=== PATIENT | male | born 1950 | race Caucasian/White ===

== ENCOUNTER 2019-12-16 08:28 | Outpatient (CLI) | payer MEDICARE, OTHER, SELFPAY | END 2019-12-16 08:29 | disposition home or self-care (01) | PROVIDERS: PCP Internal Medicine; Visit Provider Internal Medicine Pulmonary Disease | DX: J45.909 Unspecified asthma, uncomplicated (principal); J45.991 Cough variant asthma | CPT/HCPCS: 94060; 94726; 94729; 95012 ==

== ENCOUNTER 2020-01-08 12:44 | Outpatient (CLI) | payer MEDICARE, OTHER, SELFPAY ==
--- NOTE | ~2020-01-08 | XR_ITS ---
EXAMINATION: XR hand RT min 3V EXAM DATE: 01/08/2020 13:18 INDICATION: No known recent injury provided at this time. Pain of the right hand, second MCP joint. TECHNIQUE: Right hand frontal, lateral and oblique projections obtained and reviewed. There is no pr ior study for comparison. FINDINGS: There is moderate arthritis at the second MCP joint with juxta-articular and periarticular well-defined erosion. No other erosions identified. Otherwise mild to moderate polyarticular osteoart hritis. Carpal bones are unremarkable. There are no acute fractures or dislocations identified. Ther e is no subcutaneous gas. The soft tissue is unremarkable. There are no radiopaque foreign bodies. IMPRESSION: Moderate right second MCP arthritis, probably osteoarthritis but given the juxta-articula r erosion, gout should also be considered. Reviewed, dictated and finalized at location B. POINTER IMPRESSION: Moderate right second MCP arthritis, probably osteoarthritis but gi beth the juxta-articular erosion, gout should also be considered.
== END 2020-01-08 12:45 | disposition home or self-care (01) ==
LOC: CHSIMG 12:46
PROVIDERS: PCP Internal Medicine; Visit Provider Internal Medicine
DX: M79.641 Pain in right hand (principal)
CPT/HCPCS: 73130

== ENCOUNTER 2020-03-29 07:28 | Outpatient (CLI) | payer MEDICARE, SELFPAY ==
[2020-03-29 08:16] LABS: Creatinine Urine 170.32 mg/dL (40-278)
[2020-03-29 08:19] LABS: Hemoglobin A1C 7.8 % (<5.7)
[2020-03-29 08:23] LABS: MALB Creatinine Ratio 11.6 mg/g (0-30); Microalbumin Urine Random 19.9 mg/L
[2020-03-29 09:05] LABS: Rheumatoid Factor Screen Negative (Negative)
[2020-03-29 09:30] LABS: Alanine Aminotransferase 45 U/L (16-63); Albumin Level 3.6 g/dL (3.4-5.0); Alkaline Phosphatase 75 U/L (46-116); Anion Gap 14.4 mmol/L (7-16); Aspartate Amino Transferase 29 U/L (15-37); Bilirubin,Total 0.5 mg/dL (0.00-1.00); Blood Urea Nitrogen 24 mg/dL (7-18); Carbon Dioxide 30 mmol/L (21-32); Chloride 104 mmol/L (98-108); Cholesterol 169 mg/dL (0-200); Estimated Glomerular Filt Rate > 60; Free T3 2.75 pg/mL (2.18-3.98); Free T4 Free Thyroxine 1.22 ng/dL (0.76-1.46); Glucose 98 mg/dL (70-99); HDL Direct 33 mg/dL (40-60); LDL Cholesterol Calculated 118 mg/dL (<130); Osmolality Calculated 302 mOsm/kg (285-295); Potassium 4.4 mmol/L (3.5-5.1); Sodium 144 mmol/L (136-145); Total Protein 7.2 g/dL (6.4-8.2); Triglycerides 91 mg/dL (0-150); Vitamin B12 1283 pg/mL (193-986)
[2020-03-29 09:31] LABS: Folic Acid > 20.0 ng/mL (8.6->20)
[2020-04-01 02:22] LABS: Thyroid Peroxidase Antibodies <1 IU/mL (<9)
== END 2020-03-29 07:29 | disposition home or self-care (01) ==
PROVIDERS: PCP Internal Medicine; Visit Provider Internal Medicine Endocrinology, Diabetes & Metabolism
DX: R53.83 Other fatigue (principal); E10.9 Type 1 diabetes mellitus without complications; E78.5 Hyperlipidemia, unspecified
CPT/HCPCS: 36415; 80053; 80061; 82043; 82607; 82746; 83036; 84439; 84443; 84481; 86038; 86376; 86430

== ENCOUNTER 2020-04-15 15:43 | Outpatient (CLI) | payer MEDICARE, OTHER, SELFPAY ==
--- NOTE | 2020-04-15 16:00 | ECG_ITS ---
Measurements Intervals [place] Rate: 81 P: 62 SD: 218 QRS: 49 QRSD: 114 T: -11 QT: 374 QTc: 436 Interpretive Statements SINUS RHYTHM WITH FIRST DEGREE AV BLOCK INTRAVENTRICULAR CONDUCTION DELAY CANNOT RULE OUT SEPTAL INFARCT, AGE INDETERMINATE BORDERLINE ST-T WAVE ABNORMALITY- INFERIOR LEADS ABNORMAL ECG Electronically Signed On 04-15-2020 16:43:59 CDT by Luke Nick D.O.
== END 2020-04-15 15:44 | disposition home or self-care (01) ==
LOC: CHSCARD 15:48
PROVIDERS: PCP Internal Medicine; Visit Provider Internal Medicine Cardiovascular Disease
DX: I48.0 Paroxysmal atrial fibrillation (principal); I10 Essential (primary) hypertension; E78.5 Hyperlipidemia, unspecified
CPT/HCPCS: 93005

== ENCOUNTER 2020-05-04 09:03 | Outpatient (CLI) | payer MEDICARE, OTHER, SELFPAY ==
--- NOTE | 2020-05-04 11:00 | NEURO_ITS ---
Patient Number: [id number] Impression: # Complains of decreased strength of left hand grasp. # Severe left Carpal Tunnel Syndrome with atrophy of APB; No response could be obtained. # Left ulnar neuropathy at the elbow. # Needle/EMG exam not requested. # Clinical correlation recommended. Nerve Conduction Studies Anti Sensory Summary Table Stim Site NR Peak (ms) P-T Amp (?V) Site1 Site2 Delta-P (ms) Dist (cm) Keshav (m/s) Left Median Anti Sensory (2-3nd Digit) NO RESPONSE Wrist NR Wrist 2-3nd Digit 14.0 Wrist NR Wrist 2-3nd Digit 14.0 Left Radial Anti Sensory (Base 1st Digit) Wrist 2.7 15.0 Wrist Base 1st Digit 2.7 0.0 Left Ulnar Anti Sensory (5th Digit) Wrist 2.3 19.7 Wrist 5th Digit 2.3 14.0 61 Motor Summary Table Stim Site NR Onset (ms) O-P Amp (mV) Site1 Site2 Delta-0 (ms) Dist (cm) Keshav (m/s) Left Median Motor (Abd Poll Brev) NO RESPONSE Wrist NR Elbow Wrist 26.0 Elbow NR Left Ulnar Motor (Abd Dig Minimi) Wrist 3.4 3.9 A Elbow Wrist 8.3 34.0 41 A Elbow 11.7 3.0 B Elbow Wrist 5.8 28.0 48 B Elbow 9.2 3.3 F Wave Studies NR F-Lat (ms) L-R F-Lat (ms) Left Median (Mrkrs) (Abd Poll Brev) NO RESPONSE NR Left Ulnar (Mrkrs) (Abd Dig Min) 26.97 MTDD
== END 2020-05-04 09:04 | disposition home or self-care (01) ==
PROVIDERS: PCP Internal Medicine; Visit Provider Family Medicine
DX: G56.02 Carpal tunnel syndrome, left upper limb (principal); G56.22 Lesion of ulnar nerve, left upper limb
CPT/HCPCS: 95909

== ENCOUNTER 2020-06-21 13:38 | Outpatient (CLI) | payer MEDICARE, SELFPAY ==
[2020-06-21 14:28] LABS: Anion Gap 9 mmol/L (8-16); Blood Urea Nitrogen 28 mg/dL (7-18); Calcium 8.7 mg/dL (8.5-10.1); Carbon Dioxide 27 mmol/L (21-32); Chloride 103 mmol/L (98-108); Estimated Glomerular Filt Rate 59; Glucose 233 mg/dL (70-99); Osmolality Calculated 300 mOsm/kg (285-295); Potassium 4.5 mmol/L (3.5-5.1); Sodium 139 mmol/L (136-145)
== END 2020-06-21 13:39 | disposition home or self-care (01) ==
LOC: CHSLAB 13:41
PROVIDERS: PCP Internal Medicine; Visit Provider Anesthesiology
DX: E11.9 Type 2 diabetes mellitus without complications (principal)
CPT/HCPCS: 36415; 80048

== ENCOUNTER 2020-06-22 00:32 | Outpatient (CLI) | payer MEDICARE, SELFPAY ==
[2020-06-22 18:35] LABS: SARS-CoV-2 RNA PCR Negative
== END 2020-06-22 00:33 | disposition home or self-care (01) ==
LOC: ANHCOVIDDT 00:33
PROVIDERS: PCP Internal Medicine; Visit Provider Orthopaedic Surgery
DX: Z01.812 Encounter for preprocedural laboratory examination (principal); Z11.59 Encounter for screening for other viral diseases
CPT/HCPCS: 87635; C9803; U0003

== ENCOUNTER 2020-06-24 01:04 | Day surgery (SDC) | payer MEDICARE, SELFPAY ==
[2020-06-15 12:43] VITALS: BMI 29.5
[2020-06-24] MEDS: LACTATED RINGERS 1,000 ML 30 ML IV CONT (07:00)
[2020-06-24] MEDS: KETOROLAC 15 MG/ML VIAL (*BKC) IV PUSH (07:05)
[2020-06-24] MEDS: ACETAMINOPHEN 500 MG TABLET 1000 MG PO (07:05)
--- NOTE | 2020-06-24 07:15 | PM.IMHP ---
H&P: HPI History of Present Illness Date/Time: 06/24/20 07:15 Chief complaint: Left Carpal Tunnel Syndrome Narrative: Dinesh Lin is a 70 year old maleWith left hand pain and numbness. Nerve conduction study shows carpal tunnel syndrome. Patient has failed conservative treatment with bracing, activity modification and cortisone injections. Presents for operative treatment. Review of Systems Constitutional: Constitutional: Denies fever(s) Eyes: Eyes: Denies blurry vision ENT: Reports Normal hearing present Cardiovascular: Cardiovascular: Denies chest pain and Denies dyspnea Respiratory: Respiratory: Denies dyspnea and Denies wheezing Gastrointestinal: Gastrointestinal: Denies abdominal pain Genitourinary: Genitourinary: Denies urinary urgency Musculoskeletal: Musculoskeletal: Reports as per HPI Integumentary/Breasts: Skin/Breast: Denies changing lesions and Denies sores Neurologic: Denies confusion Psychiatric: Psychiatric: Denies confusion Endocrine: Endocrine: Denies heat intolerance Hematologic/Lymphatic: Hematologic/Lymphatic: Denies easy bleeding Allergic/Immunologic: Allergic/Immunologic: Denies wheezing PMFSH Past Medical History Medical History Carpal tunnel syndrome of left wrist Cubital tunnel syndrome on left Family History Family History Mother Family history of diabetes mellitus in first degree relative Family history of congestive heart failure Social History Social History Smoking status: Former smoker Additional smoking assessment comments: 2PK/DAY - QUIT Alcohol intake: current Substance use: never Living arrangements: with family Spiritual care concerns: No Meds Home Medications and Allergies Home Medications Medication Instructions Recorded Confirmed Type apixaban 5 mg tablet 5 mg PO BID 11/24/19 06/15/20 History carvedilol 6.25 mg tablet 6.25 mg PO Q12H 11/24/19 06/15/20 History cholecalciferol (vitamin D3) 25 25 mcg PO DAILY 11/24/19 06/15/20 History mcg (1,000 unit) tablet coenzyme Q10 100 mg capsule 100 mg PO DAILY 11/24/19 06/15/20 History furosemide 40 mg tablet 40 mg PO QAM 11/24/19 06/15/20 History magnesium oxide 400 mg PO DAILY 11/24/19 06/15/20 History meloxicam 15 mg tablet 15 mg PO DAILY 11/24/19 06/15/20 History multivitamin with iron-mineral 1 tablet PO DAILY 11/24/19 06/15/20 History omega-3 fatty acids 1,000 mg 1,000 mg PO DAILY 11/24/19 06/15/20 History capsule pantoprazole 40 mg tablet,delayed 40 mg PO QAM 11/24/19 06/15/20 History release pyridoxine (vitamin B6) 50 mg 50 mg PO DAILY 11/24/19 06/15/20 History capsule spironolactone 25 mg tablet 25 mg PO DAILY #90 tablet 01/30/20 06/15/20 Rx Colcrys 0.6 mg tablet See Rx Instructions .ROUTE 04/22/20 06/15/20 Rx .COMPLEX #60 tablet NS amiodarone 200 mg PO HS 06/15/20 06/15/20 History duloxetine 20 mg PO BID 06/15/20 06/15/20 History insulin aspart U-100 [Novolog 1 sliding scale dose SUBCUT 06/15/20 06/15/20 History U-100 Insulin aspart] USEASDIRECTD losartan 50 mg PO HS 06/15/20 06/15/20 History Allergies Allergy/AdvReac Type Severity Reaction Status Date / Time No Known Drug Allergies Allergy Unknown Unknown Verified 06/15/20 12:12 Exam Const: General: cooperative, healthy appearing, no acute distress, well developed and alert; No confusion Orientation/consciousness: No confusion HENMT: Head: normal to inspection, normocephalic and atraumatic Eyes: Conjunctivae: conjunctivae normal Sclera: sclerae normal Neck: Neck: supple and nontender Chest: Chest palpation & inspection: normal inspection of the chest Resp: Effort & Inspection: normal respiratory effort and no audible wheezes Cardio: Rate: regular rate Rhythm: regular rhythm : General: Yes deferred Skin: Ge
--- NOTE | 2020-06-24 07:17 | WPDHPUPDATE1 ---
History and Physical Update Update Date/Time: 06/24/20 07:17 History and Physical has been reviewed, including an updated exam of the patient. There are NO changes in the patient's condition. Risks, benefits, and alternatives have been discussed and questions answered. Patient agrees to proceed with procedure.
[2020-06-24 07:30] LABS: Glucose Point of Care 114 (65-105)
--- NOTE | 2020-06-24 08:06 | WPDANESEPPF ---
Anes - Initial Pre Proc Eval Procedure: Operation Date: 06/24/20 08:30 Proposed Procedures p Left Carpal Tunnel Release - Chaitanya Jones MD Date/Time: 06/24/20 08:06 Surgeon: Chaitanya Jones MD Pre Op Diagnosis: Left Carpal Tunnel Syndrome Patient Data Age: 70 Gender: M Height: 6 ft 2 in Weight: 104.5 kg Allergies Allergy/AdvReac Type Severity Reaction Status Date / Time No Known Drug Allergies Allergy Unknown Unknown Verified 06/15/20 12:12 Home Medications Medication Instructions Recorded Confirmed Type apixaban 5 mg tablet 5 mg PO BID 11/24/19 06/15/20 History carvedilol 6.25 mg tablet 6.25 mg PO Q12H 11/24/19 06/15/20 History cholecalciferol (vitamin D3) 25 25 mcg PO DAILY 11/24/19 06/15/20 History mcg (1,000 unit) tablet coenzyme Q10 100 mg capsule 100 mg PO DAILY 11/24/19 06/15/20 History furosemide 40 mg tablet 40 mg PO QAM 11/24/19 06/15/20 History magnesium oxide 400 mg PO DAILY 11/24/19 06/15/20 History meloxicam 15 mg tablet 15 mg PO DAILY 11/24/19 06/15/20 History multivitamin with iron-mineral 1 tablet PO DAILY 11/24/19 06/15/20 History omega-3 fatty acids 1,000 mg 1,000 mg PO DAILY 11/24/19 06/15/20 History capsule pantoprazole 40 mg tablet,delayed 40 mg PO QAM 11/24/19 06/15/20 History release pyridoxine (vitamin B6) 50 mg 50 mg PO DAILY 11/24/19 06/15/20 History capsule spironolactone 25 mg tablet 25 mg PO DAILY #90 tablet 01/30/20 06/15/20 Rx Colcrys 0.6 mg tablet See Rx Instructions .ROUTE 04/22/20 06/15/20 Rx .COMPLEX #60 tablet NS amiodarone 200 mg PO HS 06/15/20 06/15/20 History duloxetine 20 mg PO BID 06/15/20 06/15/20 History insulin aspart U-100 [Novolog 1 sliding scale dose SUBCUT 06/15/20 06/15/20 History U-100 Insulin aspart] USEASDIRECTD losartan 50 mg PO HS 06/15/20 06/15/20 History Laboratory Tests 06/24/20 07:22 POC Capillary Glucose 114 mg/dl H mg/dl (65-105) Patient hx anesthesia problems: none Family hx anesthesia problems: none PMFSH Past Medical History Medical History (Updated 06/24/20 @ 08:06 by Hakan Alvarez MD) CAD (coronary artery disease), autologous vein bypass graft Carpal tunnel syndrome of left wrist COPD (chronic obstructive pulmonary disease) Cubital tunnel syndrome on left Diabetes Dyslipidemia MANNY on CPAP Family History Family History Mother Family history of diabetes mellitus in first degree relative Family history of congestive heart failure Social History Social History Smoking status: Former smoker Additional smoking assessment comments: 2PK/DAY - QUIT Alcohol intake: current Substance use: never Living arrangements: with family Spiritual care concerns: No Anes - Eval Final PreProcedure Day of Procedure 06/24/20 08:06 Patient weight: obese Heart: regular rate and rhythm Lungs: clear to auscultation Airway: Mallampati scale class II Neurological: alert and oriented Last oral intake: >/= 8 hours ASA classification: III Emergent: no Anesthetic plan: proceed Anesthesia type and monitoring: general GIVS and standard monitoring Informed Consent: The patient's anesthetic plan and its attendant risks and benefits were discussed with the patient/family/POA. Questions were solicited and answers provided to the satisfaction of the patient/family/POA.
[2020-06-24] MEDS: ceFAZolin 2 GM/D5W 50 ML 2 GM/50 ML BAG IVPB (08:17)
[2020-06-24 08:30] VITALS: BP 143/69; PULSE 85; RESP 20; TEMP 36.5; O2SAT 97
[2020-06-24] MEDS: LIDOCAINE HCL 2% LOCAL INJ 20 ML VIAL INFILTRATE (08:38)
[2020-06-24 08:50] VITALS: BP 125/58; PULSE 72; RESP 12; O2SAT 99
--- NOTE | 2020-06-24 08:55 | PM.PROC ---
Procedure Note - Detailed Date of procedure: 06/24/20 Pre-op diagnosis: Left Carpal Tunnel Syndrome Post-op diagnosis: same Procedure performed: Left carpal tunnel release Description of procedure: Preoperative Diagnosis: Left Carpal Tunnel Syndrome (G56.01) Postoperative Diagnosis: Same Procedure: Left open carpal tunnel release (80338) Surgeon: Robert Assist: Softball Core Molder Anesthesia: MAC, local Complications: None EBL: Minimal Operative Indications: The patient has history, exam findings, and electrodiagnostic findings consistent with carpal tunnel syndrome. Conservative treatment with bracing/ splinting, activity modifications, medication, ergonomics, injections has failed. Symptoms are daily and affect ability to use hand. The patient desires operative treatment. Procedure: After informed consent was given, the operative extremity was marked in the preoperative holding area. Intravenous antibiotics were given. The patient was taken to the operating room and underwent conscious sedation by the anesthesia team. A time-out was performed confirming patient, procedure, and operative site. Local infiltrate at the carpal tunnel was done with 0.5% marcaine. Prepping and draping was done using chloraprep skin solution with usual surgical sterile technique. Anatomic landmarks marked on skin. Hand was exsanguinated and arm tourniquet inflated to 225mmHg. Incision was made with #15 blade knife in skin crease on volar palm. Hemostasis was achieved with electrocautery. Careful dissection was carried down to the transverse carpal ligament. Retractors were placed. Ligament overlying median nerve was incised in line with skin incision using [place] blade. Proximal and distal release was done with metzenbaum scissors under direct visualization. Mosquito clamp was placed deep to ligament to protect nerve during release. The nerve was inspected and noted to be intact with mild flattening. Tendons had good excursion. The tourniquet was then released and pressure held. Bleeding points were coagulated with bovie cautery. The wound was thoroughly irrigated with antibiotic solution. The skin was closed with 4-0 nylon interrupted suture. A sterile dressing was applied. Good capillary refill in the fingers and thumb was noted. The patient was transported to the recovery room in stable condition. All sponge, needle, instrument counts were correct at the end of the case. Anesthesia: MAC Surgeon: Chaitanya Jones MD Physical Science Aide: 1st library serials assistant Estimated blood loss (mL): 2 Tourniquet time (min): 8 Drains: No Packing: No Pathology: none sent Complications: None Condition: stable Disposition: PACU
[2020-06-24 09:11] LABS: Glucose Point of Care 110 (65-105)
[2020-06-24 09:20] VITALS: BP 120/68; PULSE 68; RESP 16; O2SAT 97
== END 2020-06-24 09:38 | disposition home or self-care (01) ==
PROVIDERS: PCP Internal Medicine; Visit Provider Orthopaedic Surgery
PROC: (CPT 64721; principal; 2020-06-24 08:30)
DX: G56.02 Carpal tunnel syndrome, left upper limb (principal); I25.10 Atherosclerotic heart disease of native coronary artery without angina pectoris; J44.9 Chronic obstructive pulmonary disease, unspecified; E11.9 Type 2 diabetes mellitus without complications; E78.5 Hyperlipidemia, unspecified; G47.33 Obstructive sleep apnea (adult) (pediatric); Z79.4 Long term (current) use of insulin; Z79.01 Long term (current) use of anticoagulants; Z87.891 Personal history of nicotine dependence; E66.9 Obesity, unspecified; Z68.29 Body mass index [BMI] 29.0-29.9, adult
CPT/HCPCS: 64721; A9270; J0690; J1885; J2704; J3010; J7120

== ENCOUNTER 2020-07-14 08:04 | Outpatient (CLI) | payer MEDICARE, SELFPAY ==
[2020-07-14 08:31] LABS: Creatinine Urine 127.25 mg/dL (40-278); MALB Creatinine Ratio 10.2 mg/g (0-30); Microalbumin Urine Random < 13.0 mg/L
[2020-07-14 09:13] LABS: Hemoglobin A1C 7.6 % (<5.7)
[2020-07-14 09:52] LABS: Alanine Aminotransferase 68 U/L (16-63); Albumin Level 3.5 g/dL (3.4-5.0); Alkaline Phosphatase 95 U/L (46-116); Anion Gap 7 mmol/L (8-16); Aspartate Amino Transferase 34 U/L (15-37); Bilirubin,Total 0.3 mg/dL (0.00-1.00); Blood Urea Nitrogen 30 mg/dL (7-18); Calcium 8.6 mg/dL (8.5-10.1); Carbon Dioxide 28 mmol/L (21-32); Chloride 105 mmol/L (98-108); Cholesterol 162 mg/dL (0-200); Estimated Glomerular Filt Rate > 60; Glucose 108 mg/dL (70-99); HDL Direct 30 mg/dL (40-60); LDL Cholesterol Calculated 110 mg/dL (<130); Osmolality Calculated 297 mOsm/kg (285-295); Potassium 4.3 mmol/L (3.5-5.1); Sodium 140 mmol/L (136-145); Total Protein 7.5 g/dL (6.4-8.2); Triglycerides 108 mg/dL (0-150)
== END 2020-07-14 08:05 | disposition home or self-care (01) ==
LOC: CHSLAB 08:07
PROVIDERS: PCP Internal Medicine; Visit Provider Internal Medicine Endocrinology, Diabetes & Metabolism
DX: E78.5 Hyperlipidemia, unspecified (principal); E11.65 Type 2 diabetes mellitus with hyperglycemia
CPT/HCPCS: 36415; 80053; 80061; 82043; 83036

== ENCOUNTER 2020-08-30 08:05 | Outpatient (CLI) | payer MEDICARE, SELFPAY ==
--- NOTE | ~2020-08-30 | US_ITS ---
EXAMINATION: US art doppler w press LE BI DATE: 08/30/2020 09:12 INDICATION: Absent bilateral pedal pulses. TECHNIQUE: Segmental pressures and plethysmographic and Doppler waveforms of the brachial and lower e xtremity arteries were obtained. COMPARISON: None. FINDINGS: Right and left brachial artery pressures of 129 mm Hg and 124 mm Hg, respectively, are concordant (no rmal difference <= 30 mmHg). The right and left high-thigh pressure indices were unable to be obtaine d due to inability to occlude the vessels (normal > 1.2). The right ankle-brachial index (MAHIN) is 1.14 (normal >= 0.9-1). The right great toe-brachial index (T BI) is 0.50 (normal >= 0.6-0.8). The right lower extremity segmental pressure gradients are increased between the right dorsalis pedis artery and the right ejyug-brj-cqoe popliteal artery and posterior tibial artery (normal gradients <= 20-30 mmHg between adjacent levels on the same leg or the same lev els on the two legs). Arterial waveforms are biphasic with brisk systolic upstrokes at the arteries t hroughout the right lower limb. The left MAHIN is unable to be obtained due to inability to occlude either vessel at the level of the a nkle. The left TBI is 0.74. The left lower extremity segmental pressure gradient between the above an d yoqlr-aot-fwta popliteal arteries is normal. Arterial waveforms are biphasic with brisk systolic up strokes throughout the left lower limb. IMPRESSION: 1. 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 No significant arterial occlusive disease to the left lower limb with normal left TBI. Right MAHIN i s unable to be obtained due to to inability to occlude the vessels typically resulting from vessel wa ll calcification. Reviewed, dictated and finalized at location A. IMPRESSION: 1. 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 No significant arterial occlusive disease to the left lower limb with normal left TBI. Right MAHIN is unable to be obtained due to to inability to occlude th e vessels typically resulting from vessel wall calcification.
== END 2020-08-30 08:06 | disposition home or self-care (01) ==
PROVIDERS: PCP Internal Medicine; Visit Provider Orthopaedic Surgery
DX: R09.89 Other specified symptoms and signs involving the circulatory and respiratory systems (principal); I73.9 Peripheral vascular disease, unspecified
CPT/HCPCS: 93923

== ENCOUNTER 2020-10-06 09:37 | Outpatient (CLI) | payer MEDICARE, SELFPAY ==
--- NOTE | ~2020-10-06 | XR_ITS ---
XR lumbar spine min 4V 10/06/2020 10:27 Indication: Lumbar postlaminectomy Procedure: 5 views lumbar spine Comparison: 02/15/2010 Findings: There is a chronic superior endplate compression fracture of L2, unchanged. There is modera te multilevel facet hypertrophy at L3-4, L4-5 and L5-S1. There is disc narrowing at these levels. The re are laminectomy changes at L4-5. There is a cholecystectomy clips. Impression: 1: Lumbar spondylosis. 2: Chronic superior endplate compression fracture of L2, stable. Reviewed, dictated and finalized at location A. [employer] Impression: 1: Lumbar spondylosis. 2: Chronic superior endplate compression fracture of L2, stable.
--- NOTE | ~2020-10-06 | CT_ITS ---
EXAMINATION: CT lumbar spine wo con DATE: 10/06/2020 10:38 INDICATION: Low back pain. Postlaminectomy syndrome. TECHNIQUE: Computed tomography (CT) of the lumbar spine was performed without intravenous contrast. A utomated exposure control and iterative reconstruction technique were employed. The dose-length produ ct was 1337.53 mGy-cm. COMPARISON: CT lumbar spine 06/24/2015 FINDINGS: There is a 1.2 cm mass in right adrenal gland containing fat, consistent with a myelolipoma . There is 4 degrees levocurvature of thoracic lumbar spine. There is 3 mm retrolisthesis of L2 on L3 . There is a chronic burst fracture of L2 with 3/5 loss of height. There is mild chronic anterior wed ging of T11 and T12 vertebral bodies. There is moderately decreased disc height at T12-L1 and L1-L2 a nd severely decreased disc height at L2-L3 and L5-S1. There are disc calcifications at L5-S1. The fol lowing disc levels are specifically discussed: T12-L1: The disc is bulging. There is moderate bilateral facet joint osteoarthritis. There is mild bi lateral neural foraminal stenosis. There is mild central canal stenosis. L1-L2: The disc is bulging. There is mild right and moderate left facet joint osteoarthritis. There i s mild bilateral neural foraminal stenosis. There is no central canal stenosis. L2-L3: The disc is bulging. There is moderate bilateral facet joint osteoarthritis. There is moderate bilateral neural foraminal stenosis. There is mild central canal stenosis. L3-L4: The disc is bulging. There is severe bilateral facet joint osteoarthritis. There is hypertroph y of the ligamentum flavum. There is moderate bilateral neural foraminal stenosis. There is severe ce ntral canal stenosis. L4-L5: The disc is bulging. There is severe bilateral facet joint osteoarthritis. There is moderate b ilateral neural foraminal stenosis. There is mild central canal stenosis with posterior decompression . L5-S1: The disc is bulging. There is ankylosis of the facet joints with moderate right and severe lef t hypertrophy. There is moderate bilateral neural foraminal stenosis. There is no central canal steno sis. IMPRESSION: 1. Worsened severe lumbar spondylosis. Reviewed, dictated and finalized at location A. ESTATE MARKETING COORDINATOR
== END 2020-10-06 09:38 | disposition home or self-care (01) ==
PROVIDERS: PCP Internal Medicine; Visit Provider Pain Medicine Pain Medicine
DX: M47.816 Spondylosis without myelopathy or radiculopathy, lumbar region (principal)
CPT/HCPCS: 72110; 72131

== ENCOUNTER 2020-10-12 13:55 | Inpatient (IN) | payer MEDICARE, SELFPAY ==
[2020-10-12] VITALS (31 sets, daily range): BP systolic 118–157; BP diastolic 62–84; PULSE 79–97; RESP 12–20; TEMP 35.8–36.6; O2SAT 95–100; BMI 31.1
--- NOTE | ~2020-10-12 | XR_ITS ---
EXAMINATION: XR chest 1V portable EXAM DATE: 10/12/2020 14:37 INDICATION: Mid chest pain. COPD, diabetes. TECHNIQUE: Portable AP frontal chest x-ray was obtained. Comparison is made to prior examination from 10/09/2018. FINDINGS: Sternotomy wires are present without findings to suggest sternal dehiscence. The lungs are clear. There are no pleural effusions. The cardiomediastinal silhouette is within normal limits. T here is no pneumothorax suspected. The bones and soft tissues are unremarkable. IMPRESSION: No acute cardiopulmonary findings. Reviewed, dictated and finalized at location A. F PHYSICAL THERAPIST
--- NOTE | 2020-10-12 14:01 | ECG_ITS ---
Measurements Intervals [place] Rate: 94 P: 60 NV: 202 QRS: -43 QRSD: 115 T: 31 QT: 367 QTc: 460 Interpretive Statements SINUS RHYTHM LEFT AXIS DEVIATION BORDERLINE AV CONDUCTION DELAY INTRAVENTRICULAR CONDUCTION DELAY CANNOT RULE OUT SEPTAL INFARCT, AGE INDETERMINATE BASELINE WANDER- II, III, AVR, AVL, AVF, V1 ABNORMAL ECG Electronically Signed On 10-12-2020 15:52:57 ARCH CUSHION SKIVING MACHINE OPERATOR by Luke Nick D.O.
[2020-10-12 14:20] LABS: Basophils Percent Auto 0.2 % (0.2-1.2); Eosinophils Percent Auto 0.1 % (0-4.4); Hemoglobin 13.4 g/dL (14.0-18.0); Immature Granulocyte Absolute 0.05 K/mm3 (0.00-0.031); Immature Granulocyte Percent A 0.4 % (0-0.5); Lymphocytes Absolute Auto 2.12 K/mm3 (0.9-3.2); Lymphocytes Percent Auto 18.8 % (18.3-44.2); Mean Corpuscular HGB Conc 32.7 g/dl (32-36); Mean Corpuscular Hemoglobin 26.9 pg (26-34); Mean Corpuscular Volume 82.3 fl (80-100); Mean Platelet Volume 10.4 fl (7.4-10.4); Monocytes Absolute Auto 0.7 K/mm3 (0.1-0.6); Monocytes Percent Auto 5.8 % (2.6-8.5); Neutrophils Absolute Auto 8.4 K/mm3 (1.3-6.7); Neutrophils Percent Auto 74.7 % (45.5-73.1); Platelet Count Result 170 k/mm3 (150-375); Red Blood Count 4.98 M/mm3 (4.6-6.20); Red Cell Distribution Width 13.7 % (11.5-14.5); White Blood Count 11.3 K/mm3 (4.5-10.0)
[2020-10-12 14:23] LABS: INR 1.1; Prothrombin Time 14.9 Seconds (11.1-14.7)
[2020-10-12 14:25] LABS: Glucose Point of Care 301 (65-105)
[2020-10-12 14:25] LABS: Anion Gap 5 mmol/L (8-16); Blood Urea Nitrogen 27 mg/dL (9-20); Calcium 9.1 mg/dL (8.4-10.2); Carbon Dioxide 32 mmol/L (22-30); Chloride 100 mmol/L (98-107); Estimated Glomerular Filt Rate > 60; Glucose 319 mg/dL (75-110); Potassium 4.9 mmol/L (3.4-5.0); Sodium 137 mmol/L (137-145)
[2020-10-12 14:49] LABS: Troponin I 0.463 ng/mL (0.000-0.034)
--- NOTE | 2020-10-12 14:54 | ED.GENADULT ---
HPI - General Adult General Chief complaint: Chest Pain Stated complaint: STEMI Time Seen by Provider: 10/12/20 14:25 Source: patient History of Present Illness HPI narrative: Patient is a 70 y/o male complaining of chest pain starting 7:00 AM this morning. He describes his pain as a pressure and rates it as 4/10. He states that pain radiates to his left arm. He states that relaxing alleviates his pain somewhat. He also felt SOB and sweating. Patient was initially thought to have STEMI, but his EKG was reviewed by cardiology and chemical lab supervisor team and thought to be not consistent with STEMI shortly after he arrived. Related Data Home Medications Medication Instructions Recorded Confirmed apixaban 5 mg tablet 5 mg PO BID 11/24/19 09/13/20 cholecalciferol (vitamin D3) 25 25 mcg PO DAILY 11/24/19 09/13/20 mcg (1,000 unit) tablet coenzyme Q10 100 mg capsule 100 mg PO DAILY 11/24/19 09/13/20 furosemide 40 mg tablet 40 mg PO QAM 11/24/19 09/13/20 magnesium oxide 400 mg PO DAILY 11/24/19 09/13/20 meloxicam 15 mg tablet 15 mg PO DAILY 11/24/19 09/13/20 multivitamin with iron-mineral 1 tablet PO DAILY 11/24/19 09/13/20 omega-3 fatty acids 1,000 mg 1,000 mg PO DAILY 11/24/19 09/13/20 capsule pantoprazole 40 mg tablet,delayed 40 mg PO QAM 11/24/19 09/13/20 release pyridoxine (vitamin B6) 50 mg 50 mg PO DAILY 11/24/19 09/13/20 capsule amiodarone 200 mg PO HS 06/15/20 09/13/20 duloxetine 20 mg PO BID 06/15/20 09/13/20 insulin aspart U-100 [Novolog 1 sliding scale dose SUBCUT 06/15/20 09/13/20 U-100 Insulin aspart] USEASDIRECTD Allergies Allergy/AdvReac Type Severity Reaction Status Date / Time No Known Allergies Allergy Verified 10/12/20 14:00 Review of Systems Constitutional: Constitutional: Denies chills, Reports excessive sweating, Denies fever(s), Denies headache(s) and Denies weakness Eyes: Eyes: Denies blurry vision ENT: Denies headache(s) and Denies neck pain Cardiovascular: Cardiovascular: Reports chest pain and Reports dyspnea Respiratory: Respiratory: Denies cough and Reports dyspnea Gastrointestinal: Gastrointestinal: Denies abdominal pain, Denies diarrhea, Denies nausea and Denies vomiting Genitourinary: Genitourinary: Denies hematuria and Denies dysuria Musculoskeletal: Musculoskeletal: Denies back pain and Denies neck pain Neurologic: Denies headache(s) and Denies weakness [facility] Past Medical History Medical History (Updated 10/12/20 @ 18:59 by Michelle Crane MD) CAD (coronary artery disease), autologous vein bypass graft Carpal tunnel syndrome of left wrist COPD (chronic obstructive pulmonary disease) Cubital tunnel syndrome on left Diabetes Dyslipidemia MANNY on CPAP Family History Family History Mother Family history of diabetes mellitus in first degree relative Family history of congestive heart failure Social History Social History Smoking status: Never smoker Additional smoking assessment comments: 2PK/DAY - QUIT Alcohol intake: current Substance use: never Spiritual care concerns: No Exam Const: General: no acute distress and well developed Orientation/consciousness: oriented to person, oriented to place, oriented to time and patient oriented x3 HENMT: Head: normocephalic Ears: external ears normal General nose exam: Normal external nose present Eyes: General: appearance normal, both eyes and all related structures Conjunctivae: conjunctivae normal Neck: Neck: normal visual inspection and full ROM Chest: Chest palpation & inspection: normal inspection of the chest and no tenderness Resp: Effort & Inspection: normal respiratory effort Auscultation: clear to auscultation bilaterally Cardio: Rate: regular rate Rhythm: regular rhythm GI: GI Palp: No abdominal tenderness and Yes Soft to palpation Skin: General skin exam: normal color and turgor joanne
[2020-10-12] MEDS: ASPIRIN 81 MG CHEWABLE TABLET 324 MG PO (15:12)
[2020-10-12] MEDS: ENOXAPARIN 120 MG/0.8 ML SYRINGE 110 MG SUB-Q (17:11)
--- NOTE | 2020-10-12 17:32 | PC.NURSE ---
Metoprolol held at this time due to patient's blood pressure being close to hypotension.
[2020-10-12 17:37] LABS: Troponin I 0.832 ng/mL (0.000-0.034)
--- NOTE | 2020-10-12 19:15 | PC.NURSE ---
Assumed care of pt. at this time. Report from FARIDA Garcia
--- NOTE | 2020-10-12 20:24 | ADMGEN ---
This patient, Dinesh Lin, was admitted to IMU Room 203-01. Patient/family oriented to hospital policies and general routines including ID bracelet, bed and alarms, visiting hours, pain management, procedures, bathroom and other care routines, personal items, smoking policy, room service/diet, and visiting hours. Information on how to activate the Rapid Response Team has been discussed. Patient/Family are encouraged to report perceived risks to care and to ask questions if they do not understand what they are told or what they should do.
[2020-10-12 21:05] LABS: Troponin I 0.929 ng/mL (0.000-0.034)
[2020-10-12] MEDS: LOSARTAN POTASSIUM 50 MG TABLET PO (22:37)
[2020-10-12] MEDS: AMIODARONE HCL 200 MG TABLET PO (22:37)
[2020-10-12] MEDS: DULoxetine HCL 20 MG CAPSULE.DR PO (22:37)
[2020-10-12] MEDS: carvediloL 6.25 MG TABLET PO (22:37)
[2020-10-13] VITALS (17 sets, daily range): BP systolic 124–140; BP diastolic 59–66; PULSE 73–91; RESP 11–20; TEMP 36–37; O2SAT 97–100
--- NOTE | 2020-10-13 | ECHO_ITS ---
Patient Info Name: Dinesh Lin Age: 70 years : 1950 Gender: Male Ht: 74 in Wt: 242 lbs BSA: 2.42 m2 HR: 76 bpm BP: 131 / 63 mmHg Heart Rhythm: Sinus Rhythm Technical Quality: Good Exam Date: 10/13/2020 10:22 AM Exam Location: [facility] Patient Status: Inpatient Admit Date: 10/13/2020 Staff Ordering Physician: Luke Nick DO Watch And Clock Maker And Repairer: Rommel Oh RDCS Attending Provider: Quentin Foster MD Referring Physician: Sandoval ROMERO; Exam Type: CA echo doppler color flow Study Info Indications I21.4 - Non-ST elevation (NSTEMI) myocardial infarction Complete two-dimensional, color flow and Doppler transthoracic echocardiogram is performed. History/Risk Factors Hypertension: Yes Diabetic Therapy: Oral Myocardial Infarction (LA): No Chronic Lung Disease: No Obesity: Yes Renal Disease: No Coronary Artery Disease (CAD) Yes Congestive Heart Failure (CHF): No Cardiomyopathy/LV Systolic Dysfunction: No Diabetes Mellitus: Yes COPD: No Tobacco Use: Former Cerebrovascular Disease: No Family History: Diabetes Mellitus, Coronary Artery Disease DVT Treatment: Apixaban Deep Vein Thrombosis (DVT): None Dialysis: None History/Risk Factors NSTEMI; CAD w/ CABG 1994, COPD, DM, HTN, pAfib. Frailty Scale (CSHA): 2: Well Cardiac Arrest: No Prior Interventions Pacemaker: No PCI: No CABG: Yes Valve Surgery: No ICD: No PV Intervention: None Heart Transplant: No Summary 1. Complete two-dimensional, color flow and Doppler transthoracic echocardiogram is performed. 2. Patient has prior CABG. 3. Left ventricular chamber dimension is normal. 4. No obvious wall motion abnormalities. 5. Left ventricular systolic function is normal, estimated at 55-60%. 6. There is mildly increased left ventricular wall thickness. 7. The left ventricular diastolic function is abnormal. 8. E/e' 25 is elevated. 9. Right ventricular systolic function is mildly reduced based on TAPSE of 1.5 cm. 10. Left atrial chamber dimension is moderately enlarged. 11. There is mild aortic valve sclerosis. 12. The mitral valve has moderately calcified annulus. Recommendations * Continue medical therapy for diabetes. Left Ventricle E/e' 25 is elevated. No obvious wall motion abnormalities. Left ventricular chamber dimension is normal. Left ventricular systolic function is normal, estimated at 55-60%. There is mildly increased left ventricular wall thickness. The left ventricular diastolic function is abnormal. Right Ventricle Right ventricular systolic function is mildly reduced based on TAPSE of 1.5 cm. Right ventricular size is normal. Right ventricular chamber dimension is not well visualized. Left Atria Left atrial chamber dimension is moderately enlarged. Right Atria Right atrial chamber dimension is normal. Aortic Valve The aortic valve is trileaflet. There is mild aortic valve sclerosis. There is no aortic valve stenosis. There is no aortic valve regurgitation. Pulmonic Valve There is no pulmonic regurgitation. Mitral Valve The mitral valve has moderately calcified annulus. There is no mitral valve stenosis. There is no mitral valve regurgitation. Tricuspid Valve There is no tricuspid valve regurgitation. Pericardium/Pleural There is no pericardial effusion. Inferior Vena Cava Normal infe
--- NOTE | 2020-10-13 00:26 | PM.IMHP ---
H&P: HPI History of Present Illness Date/Time: 10/13/20 00:26 Chief complaint: Chest pressure Narrative: Dinesh Lin is a 70 year old male with a past medical history of insulin-dependent diabetes, hypertension, coronary artery disease and CABG who presented to the ER from home via EMS with chest pain. The patient arrived to the ER as a code STEMI. However the patient's EKG was reviewed by Cardiology and STEMI was canceled. The patient began having chest pain when he was outside gathering AQH. It pain was a 6/10 in intensity at its worst. The pain is pressure-like in nature and radiated to his left arm. The his pain was similar to his prior episodes of cardiac chest pain when he had his CABG and prior cardiac stent. He reports that he went inside and rested which helped relieve some of his chest pressure. He had reported to the ER staff that he was having shortness of breath and sweating with the pain but denies B symptoms at the time of my evaluation. The patient reported that when he went back outside to will gather would again is pain reoccurred and was stronger than his initial episode. He did not have any nitroglycerin at home as they had . He denies having any orthopnea, paroxysmal nocturnal dyspnea or lower extremity swelling. Patient is still having chest pressure 4/10 in intensity. He refused the 4 baby aspirin in transit to the hospital. He did receive nitroglycerin which improved his pain. He refuses any additional nitroglycerin at this time including nitropaste. Tried to get educate the patient that if he is still having chest pressure that he would benefit from nitroglycerin and or pain medications but he adamantly refuses. He reports that he just wants to feel your what is wrong with his heart he does not need more medications. Review of Systems Review of Systems: Narrative: 12 systems were reviewed with pertinent positives and negatives per HPI. Except as documented in the HPI, all other systems were reviewed and are negative. [facility] Past Medical History Medical History (Updated 10/13/20 @ 03:52 by Peggy Ivy DO) CAD (coronary artery disease), autologous vein bypass graft Carpal tunnel syndrome of left wrist Cervical spine fracture Treated conservatively 2015 COPD (chronic obstructive pulmonary disease) Cubital tunnel syndrome on left Depression Diabetes Dyslipidemia Eczema Essential hypertension GERD (gastroesophageal reflux disease) Kidney stones MANNY on CPAP Paroxysmal atrial fibrillation Peripheral neuropathy Subdural hematoma 2014 Surgical History Surgical History (Updated 10/13/20 @ 03:52 by Peggy Ivy DO) Cataract extraction status, left eye History of cardiac catheterization 2003 with 1 stent placed History of cardiac radiofrequency ablation 2013 History of carpal tunnel release Left carpal tunnel release June 2020 History of lithotripsy ESWL x9 History of lumbar surgery S/P CABG x 4 1993 Family History Family History Mother CHF (congestive heart failure) Diabetes mellitus Social History Social History (Updated 10/13/20 @ 03:56 by Peggy Ivy DO) Social History: He is and lives in [facility]. Primary care physician: Dr. Rafita Paulson [facility] power of erisa attorney: Lenka () Code status: Full code Smoking status: Former smoker Additional smoking assessment comments: 2PK/DAY - QUIT Alcohol intake: current Substance use: never Substance use type: does not use Gender identity (if verbalized by the patient): Male Spiritual care concerns: No Meds Home Medications and Allergies Home Medications Medication Instructions Recorded Confirmed Type apixaban 5 mg tablet 5 mg PO BID 11/24/19 10/12/20 History cholecalciferol (vitamin D3) 25 25 mcg PO DAILY 11/24/19 10/12/20 History mcg (1,000 unit) tablet coenzyme Q10 100 mg ca
--- NOTE | 2020-10-13 06:59 | ECG_ITS ---
Measurements Intervals [place] Rate: 78 P: -21 MI: 153 QRS: -33 QRSD: 116 T: 3 QT: 402 QTc: 459 Interpretive Statements SINUS RHYTHM LEFT AXIS DEVIATION CANNOT RULE OUT SEPTAL INFARCT, AGE INDETERMINATE BORDERLINE ST-T WAVE ABNORMALITY- INF/LAT LEADS ABNORMAL ECG Electronically Signed On 10-13-2020 8:56:11 [employer]IREMENT PLAN [employer]IST by Luke Nick D.O.
--- NOTE | 2020-10-13 07:57 | PM.CNCAR ---
Assessment and Plan Assessment and plan (1) Non-ST elevation (NSTEMI) myocardial infarction: Code(s): I21.4 - Non-ST elevation (NSTEMI) myocardial infarction Status: Acute Assessment and Plan: Aspirin, Lovenox, Coreg, Losartan, NTG prn. Obtain echo. Not on statin as he is intolerant. Will consult HCG for left heart cath. Discussed case with Dr. Rojas. If cath is scheduled for tomorrow to give time for Eliquis to wash out as patient is stable clinically, then will continue Lovenox and may feed patient today. Will hold Lovenox dose tonight and make patient NPO after midnight. (2) PAF (paroxysmal atrial fibrillation): Code(s): I48.0 - Paroxysmal atrial fibrillation Status: Acute Assessment and Plan: Last dose of Eliquis was yesterday morning. Eliquis on hold. Lovenox. (3) Hypertension: Qualifiers: Hypertension type: essential hypertension Qualified Code(s): I10 - Essential (primary) hypertension Code(s): I10 - Essential (primary) hypertension Status: Acute Assessment and Plan: Stable. (4) Chest pain: Code(s): R07.9 - Chest pain, unspecified Status: Acute (5) CAD (coronary artery disease), autologous vein bypass graft: Code(s): I25.810 - Atherosclerosis of coronary artery bypass graft(s) without angina pectoris Status: Acute (6) Insulin dependent diabetes mellitus: Status: Acute Assessment and Plan: Managed by hospitalist. History of Present Illness History of Present Illness Consult date/time: 10/13/20 07:57 Reason for consult: CP and NSTEMI. Patient is a 70 yr old man who is my regular cardiology patient who presents by EMS to ED yesterday with chest pain. He has a history of CAD, CABG in 1993 at [facility], dyslipidemia (intolerant of statins due to myalgia), hypertension, COPD, PAF, chronic diastolic heart failure, MANNY on CPAP. Reports yesterday morning he does his usual activities outside and had sudden onset left sided chest pressure 10/10 radiating down his left arm associated with sob and nausea. It was intermittent. He was brought to ED. Originally EMS had thought it was a STEMI and that was called but found out by cath team that it was not. His troponins trending up 0.4 to 0.8 to 0.9. EKG shows no ST changes. He is having intermittent chest pains but looks comfortable now, and was refusing NTG as he wanted something done for his heart rather than taking medications. His last Eliquis dose was yesterday morning. Cardiovascular Procedures Enterprise Sales Executive:: Cath (LAD occluded at origin, Ramus occluded prox, LCX mod diffuse plaquing, RCA mid stent patent, SVG to RCA occluded, SVG to Ramus and OM patent with mild plaquing; Ramus post anastomosis has 80% stenosis, HOLT to LAD patent.) - 08/25/2011 Echo/MUGA:: 12/01/19 EF 60-65%, mod LVH, diastolic dysfunction (E/e' 15), mod LAE, mod MAC. Echo (EF 55%, mod LVH, grade III-IV diastolic dysfunction (E/E' 23), mod LAE, mod MAC, mild TR, Aortic root 4.1 cm.) - 10/10/2018 ASAEL (EF 55%, mild LVH, mild LAE, mild MR, trace TR, grade I atheroma in ascending aorta.) - 09/27/2017 Echo (EF 67%, mod LAE.) - 01/01/2014 Electrophysiology:: 04/15/20 EKG: Sinus rhythm with first degree AV block, IVCD ,cannot r/o septal infarct, borderline ST-T wave in inferior leads. EKG (Sinus rhythm, at 59 bpm, first degree AV block, IVCD, borderline T wave abnormality- inf/lat leads. QTc 453 ms.) - 07/08/2018 EKG (Sinus rhythm at 73 bpm, first degree AV block, iVCD, borderline t wave abnormality- inferior leads.) - 10/03/2017 Cardioversion (Successful cardioversion from atrial fib to sinus rhythm. Started on Amiodarone loading.) - 09/27/2017 EKG (Atrial fibrillation at 75 bpm, IVCD.) - 09/21/2017 EKG (Sinus rhythm, borderline ST-T wave abnormality-diffuse leads, IVCD.) - 03/13/2016 Stress Tests:: 12/01/19 Lexiscan myoview: Negative for ischemia. MPI (Lexiscan myoview: Negative for ischemia.) - 10/10/2018 PFT
[2020-10-13] MEDS: NITROGLYCERIN SL 0.4 MG TABLET (08:11)
[2020-10-13] MEDS: carvediloL 6.25 MG TABLET PO ×2 (09:51→20:20)
[2020-10-13 10:11] LABS: Glucose Point of Care 168 (65-105)
--- NOTE | 2020-10-13 11:18 | PM.PNCARD ---
Progress Note: A&P Additional Plan Coronary artery disease with previous CABG/PCI. Patient presenting with acute coronary syndrome requiring follow-up angiography which will be scheduled for tomorrow morning. The patient is very stable appearing clinically and does not have to be brought to the corn lab technician urgently while he is still anticoagulated with apixaban. Further recommendations will be forthcoming following angiography tomorrow Kirk Rojas MD [facility] Subjective Date/time seen: Date of service: 10/13/20 11:18 Interval history: Patient with established history of coronary disease previous surgery and PCI presenting with non ST elevation RI/acute coronary syndrome. Patient is followed by Dr. Nick who would like the patient put on the schedule tomorrow for follow-up coronary angiography. The procedure is being delayed until tomorrow as he is systemically anticoagulated with apixaban and he did take his medication yesterday morning. Patient is very comfortable this morning resting in bed watching television and offers no other complaints Exam Const: General: comfortable and no acute distress HENMT: Mouth: Yes moist mucous membranes Eyes: Sclera: sclerae normal Pupils: Equal, round and reactive pupils present Neck: Neck: supple and no JVD Thyroid: thyroid normal Resp: Effort & Inspection: normal respiratory effort Auscultation: clear to auscultation bilaterally Cardio: Rate: regular rate Rhythm: regular rhythm Other: No gallop no murmur GI: GI Palp: Yes Soft to palpation Auscultation: normal bowel sounds Skin: General skin exam: normal color Neuro: Cognition (Neuro): normal cognition Extrem: General: normal to inspection Objective Data Vital Signs Vital Signs: Vital Signs - 24 hr 10/12/20 13:53 10/12/20 14:07 10/12/20 14:35 Temperature 35.8 C L Pulse Rate 96 91 82 Respiratory Rate 16 20 Blood Pressure 157/81 H Pulse Oximetry 97 10/12/20 14:55 10/12/20 15:00 10/12/20 15:01 Temperature Pulse Rate 85 85 87 Respiratory Rate 12 12 20 Blood Pressure 129/68 Pulse Oximetry 98 98 10/12/20 15:15 10/12/20 15:16 10/12/20 15:31 Temperature Pulse Rate 97 90 84 Respiratory Rate 16 20 20 Blood Pressure 131/62 118/69 Pulse Oximetry 97 99 97 10/12/20 15:46 10/12/20 16:20 10/12/20 16:23 Temperature Pulse Rate 83 88 81 Respiratory Rate 14 13 Blood Pressure Pulse Oximetry 99 97 98 10/12/20 16:30 10/12/20 16:45 10/12/20 17:15 Temperature Pulse Rate 82 81 89 Respiratory Rate 20 16 16 Blood Pressure 134/68 Pulse Oximetry 100 100 95 10/12/20 17:16 10/12/20 17:17 10/12/20 17:30 Temperature Pulse Rate 83 79 81 Respiratory Rate 17 13 13 Blood Pressure 141/74 H Pulse Oximetry 98 98 98 10/12/20 17:45 10/12/20 17:46 10/12/20 18:08 Temperature Pulse Rate 85 83 81 Respiratory Rate 19 20 12 Blood Pressure 135/76 Pulse Oximetry 98 100 98 10/12/20 18:15 10/12/20 18:30 10/12/20 18:47 Temperature Pulse Rate 84 85 81 Respiratory Rate 12 13 20 Blood Pressure 150/72 H Pulse Oximetry 97 100 99 10/12/20 19:28 10/12/20 20:08 10/12/20 20:29 Temperature 36.6 C Pulse Rate 82 80 84 Respiratory Rate 13 15 20 Blood Pressure 151/65 H 120/68 155/84 H Pulse Oximetry 98 97 100 10/12/20 20:35 10/12/20 21:46 10/12/20 22:00 Temperature Pulse Rate 82 82 88 Respiratory Rate 20 Blood Pressure Pulse Oximetry 100 10/12/20 22:37 10/13/20 00:00 10/13/20 01:14 Temperature 36.6 C Pulse Rate 94 91 88 Respiratory Rate 20 11 L Blood Pressure 124/64 Pulse Oximetry 97 97 10/13/20 02:00 10/13/20 04:00 10/13/20 06:00 Temperature 36.6 C Pulse Rate 85 89 80 Respiratory Rate 20 Blood Pressure 131/63 Pulse Oximetry 99 10/13/20 08:00 10/13/20 09:51 10/13/20 10:00 Temperature 36.0 C L Pulse Rate 82 77 75 Respiratory Rate 18 Blood Pressure 135/64 Pulse Oximetry 98 Intake/Output Intake/Output:
[2020-10-13 12:17] LABS: Glucose Point of Care 147 (65-105)
[2020-10-13] MEDS: PYRIDOXINE HCL 50 MG TABLET PO (12:31)
[2020-10-13] MEDS: ENOXAPARIN 120 MG/0.8 ML SYRINGE 110 MG SUB-Q (12:31)
[2020-10-13] MEDS: OMEGA 3 POLYUNSAT FATTY ACIDS 1 GM CAP PO (12:31)
[2020-10-13] MEDS: DULoxetine HCL 20 MG CAPSULE.DR PO ×2 (12:31→20:21)
[2020-10-13] MEDS: SPIRONOLACTONE 25 MG TABLET PO (12:32)
[2020-10-13] MEDS: CHOLECALCIFEROL 1,000 UNITS TABLET 1000 UNITS PO (12:32)
[2020-10-13] MEDS: PANTOPRAZOLE 40 MG TABLET PO (12:32)
--- NOTE | 2020-10-13 15:17 | PM.IMPN ---
Progress Note: A&P Assessment and Plan (1) CAD (coronary artery disease), autologous vein bypass graft: Code(s): I25.810 - Atherosclerosis of coronary artery bypass graft(s) without angina pectoris Status: Acute Assessment and Plan: Has been seen by Cardiology in the plan is to evaluate with catheterization 10/14. Continue statin, aspirin. (2) Insulin dependent diabetes mellitus: Status: Acute Assessment and Plan: Sliding scale (3) Hypertension: Qualifiers: Hypertension type: essential hypertension Qualified Code(s): I10 - Essential (primary) hypertension Code(s): I10 - Essential (primary) hypertension Status: Acute Assessment and Plan: Pressure well controlled continue the Coreg and or/and losartan (4) PAF (paroxysmal atrial fibrillation): Code(s): I48.0 - Paroxysmal atrial fibrillation Status: Acute Assessment and Plan: Sinus rhythm at present time continue beta-julio and amiodarone. Can resume anticoagulation after procedure tomorrow Subjective Date/time seen: 10/13/20 15:17 Interval history: Date of visit 10/13. 70-year-old gentleman with known coronary disease status post CABG over 20 years ago presented to the hospital with chest pain similar to the pain he had experienced pre CABG. Pain has subsided with no shortness of breath or chest pain this a.m.. Has been chronically anticoagulated for atrial arrhythmias and it is now on hold. Pain has subsided he says he is a little uncomfortable now only Exam Narrative: Exam Narrative: Blood pressure is 120/66 pulse is 82 saturating 97% on room air afebrile Lungs clear CV regular rate rhythm Abdomen soft nontender Extremities without edema good distal pulses Neuro alert pleasant cooperative no focal deficits Objective Data Vital Signs Vital Signs: Vital Signs - 24 hr 10/12/20 15:31 10/12/20 15:46 10/12/20 16:20 Temperature Pulse Rate 84 83 88 Respiratory Rate 20 14 Blood Pressure 118/69 Pulse Oximetry 97 99 97 10/12/20 16:23 10/12/20 16:30 10/12/20 16:45 Temperature Pulse Rate 81 82 81 Respiratory Rate 13 20 16 Blood Pressure Pulse Oximetry 98 100 100 10/12/20 17:15 10/12/20 17:16 10/12/20 17:17 Temperature Pulse Rate 89 83 79 Respiratory Rate 16 17 13 Blood Pressure 134/68 141/74 H Pulse Oximetry 95 98 98 10/12/20 17:30 10/12/20 17:45 10/12/20 17:46 Temperature Pulse Rate 81 85 83 Respiratory Rate 13 19 20 Blood Pressure 135/76 Pulse Oximetry 98 98 100 10/12/20 18:08 10/12/20 18:15 10/12/20 18:30 Temperature Pulse Rate 81 84 85 Respiratory Rate 12 12 13 Blood Pressure Pulse Oximetry 98 97 100 10/12/20 18:47 10/12/20 19:28 10/12/20 20:08 Temperature Pulse Rate 81 82 80 Respiratory Rate 20 13 15 Blood Pressure 150/72 H 151/65 H 120/68 Pulse Oximetry 99 98 97 10/12/20 20:29 10/12/20 20:35 10/12/20 21:46 Temperature 36.6 C Pulse Rate 84 82 82 Respiratory Rate 20 20 Blood Pressure 155/84 H Pulse Oximetry 100 100 10/12/20 22:00 10/12/20 22:37 10/13/20 00:00 Temperature 36.6 C Pulse Rate 88 94 91 Respiratory Rate 20 Blood Pressure 124/64 Pulse Oximetry 97 10/13/20 01:14 10/13/20 02:00 10/13/20 04:00 Temperature 36.6 C Pulse Rate 88 85 89 Respiratory Rate 11 L 20 Blood Pressure 131/63 Pulse Oximetry 97 99 10/13/20 06:00 10/13/20 08:00 10/13/20 09:51 Temperature 36.0 C L Pulse Rate 80 82 77 Respiratory Rate 18 Blood Pressure 135/64 Pulse Oximetry 98 10/13/20 10:00 10/13/20 12:00 Temperature 36.5 C Pulse Rate 75 77 Respiratory Rate 16 Blood Pressure 129/66 Pulse Oximetry 97 Intake/Output Intake/Output: Intake & Output 10/10/20 10/11/20 10/12/20 10/13/20 23:59 23:59 23:59 23:59 Intake Total 400 Output Total 850 Balance -450 Meds/Results Medications: Active Medications Generic Name Dose Route Start Last Admin Trade Name
[2020-10-13] MEDS: ASPIRIN 81 MG ENTERIC TABLET PO (16:12)
[2020-10-13] MEDS: FUROSEMIDE 40 MG TABLET PO (16:13)
[2020-10-13 16:34] LABS: Glucose Point of Care 198 (65-105)
[2020-10-13] MEDS: AMIODARONE HCL 200 MG TABLET PO (20:20)
[2020-10-13] MEDS: LOSARTAN POTASSIUM 50 MG TABLET PO (20:21)
[2020-10-13 20:42] LABS: Glucose Point of Care 203 (65-105)
[2020-10-14] VITALS (27 sets, daily range): BP systolic 127–163; BP diastolic 64–83; PULSE 61–79; RESP 12–22; TEMP 35.6–36.3; O2SAT 97–100
[2020-10-14 05:03] LABS: Basophils Percent Auto 0.3 % (0.2-1.2); Eosinophils Percent Auto 0.3 % (0-4.4); Hematocrit 39.7 % (42.0-52.0); Immature Granulocyte Absolute 0.03 K/mm3 (0.00-0.031); Immature Granulocyte Percent A 0.3 % (0-0.5); Lymphocytes Absolute Auto 2.68 K/mm3 (0.9-3.2); Lymphocytes Percent Auto 26.9 % (18.3-44.2); Mean Corpuscular HGB Conc 32.7 g/dl (32-36); Mean Corpuscular Hemoglobin 26.6 pg (26-34); Mean Corpuscular Volume 81.4 fl (80-100); Mean Platelet Volume 10.7 fl (7.4-10.4); Monocytes Absolute Auto 0.8 K/mm3 (0.1-0.6); Monocytes Percent Auto 7.7 % (2.6-8.5); Neutrophils Absolute Auto 6.4 K/mm3 (1.3-6.7); Neutrophils Percent Auto 64.5 % (45.5-73.1); Platelet Count Result 178 k/mm3 (150-375); Red Blood Count 4.88 M/mm3 (4.6-6.20); Red Cell Distribution Width 13.6 % (11.5-14.5)
[2020-10-14 05:18] LABS: Anion Gap 5 mmol/L (8-16); Blood Urea Nitrogen 28 mg/dL (9-20); Carbon Dioxide 31 mmol/L (22-30); Chloride 101 mmol/L (98-107); Estimated CRCL calculation 84 ml/min; Estimated Glomerular Filt Rate > 60; Glucose 206 mg/dL (75-110); Potassium 4.3 mmol/L (3.4-5.0); Sodium 137 mmol/L (137-145)
[2020-10-14 05:40] LABS: Troponin I 0.704 ng/mL (0.000-0.034)
--- NOTE | 2020-10-14 07:42 | WPDMODSED ---
Moderate Sedation Note-Pt Data Patient Data Diagnosis: ACS Prior CABG and PCI Statin intolerance Present Complaint: Intermittent CP Procedure to be performed/Plan: LHC ? PCI Allergies Allergy/AdvReac Type Severity Reaction Status Date / Time No Known Allergies Allergy Verified 10/12/20 14:00 Home Medications Medication Instructions Recorded Confirmed Type apixaban 5 mg tablet 5 mg PO BID 11/24/19 10/12/20 History cholecalciferol (vitamin D3) 25 25 mcg PO DAILY 11/24/19 10/12/20 History mcg (1,000 unit) tablet coenzyme Q10 100 mg capsule 100 mg PO DAILY 11/24/19 10/12/20 History furosemide 40 mg tablet 40 mg PO QAM 11/24/19 10/12/20 History magnesium oxide 400 mg PO DAILY 11/24/19 10/12/20 History meloxicam 15 mg tablet 15 mg PO DAILY 11/24/19 10/12/20 History multivitamin with iron-mineral 1 tablet PO DAILY 11/24/19 10/12/20 History omega-3 fatty acids 1,000 mg 1,000 mg PO DAILY 11/24/19 10/12/20 History capsule pantoprazole 40 mg tablet,delayed 40 mg PO QAM 11/24/19 10/12/20 History release pyridoxine (vitamin B6) 50 mg 50 mg PO DAILY 11/24/19 10/12/20 History capsule spironolactone 25 mg tablet 25 mg PO DAILY #90 tablet 01/30/20 10/12/20 Rx amiodarone 200 mg PO HS 06/15/20 10/12/20 History duloxetine 20 mg PO BID 06/15/20 10/12/20 History insulin aspart U-100 [Novolog 1 sliding scale dose SUBCUT 06/15/20 10/12/20 History U-100 Insulin aspart] USEASDIRECTD Colcrys 0.6 mg tablet 0.6 mg PO DAILY #60 tablet NS 08/17/20 10/12/20 Rx carvedilol 6.25 mg tablet 6.25 mg PO Q12H #60 tablet 09/13/20 10/12/20 Rx losartan 50 mg tablet 50 mg PO HS #30 tablet 10/11/20 10/12/20 Rx Current Medications: Active Medications Amiodarone HCl (Amiodarone Hcl 200 Mg Tablet) 200 mg PO HS [facility] Last Admin: 10/13/20 20:20 Dose: 200 mg Documented by: Aspirin (Aspirin 81 Mg Enteric Tablet) 81 mg PO QAM [facility] Last Admin: 10/13/20 16:12 Dose: 81 mg Documented by: Carvedilol (Carvedilol 6.25 Mg Tablet) 6.25 mg PO Q12HR [facility] Last Admin: 10/13/20 20:20 Dose: 6.25 mg Documented by: Dextrose (Dextrose 50% 25 Gm/50 Ml Syringe) 12.5 gm IV PUSH PRN PRN; Protocol PRN Reason: Hypoglycemia Duloxetine HCl (Duloxetine Hcl 20 Mg Capsule.Dr) 20 mg PO Q12HR [facility] Last Admin: 10/13/20 20:21 Dose: 20 mg Documented by: Fish Oil ([place] 3 Polyunsat Fatty Acids 1 Gm Cap) 1 gm PO DAILY [facility] Last Admin: 10/13/20 12:31 Dose: 1 gm Documented by: Furosemide (Furosemide 40 Mg Tablet) 40 mg PO QAM [facility] Last Admin: 10/13/20 16:13 Dose: 40 mg Documented by: Glucagon (Glucagon For Inj 1 Mg Vial) 1 mg IM PRN PRN; Protocol PRN Reason: Hypoglycemia Glucose (Glucose Oral Gel 15 Gm Of Glucse In 37.5 Gm Tube) 15 gm PO PRN PRN; Protocol PRN Reason: Hypoglycemia Dextrose (Dextrose 5% 1,000 Ml) 1,000 mls @ 100 mls/hr IVPB PRN PRN; Protocol PRN Reason: Hypoglycemia Losartan Potassium (Losartan Potassium 50 Mg Tablet) 50 mg PO HS [facility] Last Admin: 10/13/20 20:21 Dose: 50 mg Documented by: Magnesium Oxide (Magnesium Oxide 400 Mg Tablet) 400 mg PO DAILY [facility] Last Admin: 10/13/20 12:33 Dose: Not Given Documented by: Multivitamins/Calcium (Therapeutic Multivitamins/Minerals Tab (*Bkc)) 1 tablet PO DAILY [facility] Last Admin: 10/13/20 12:32 Dose: Not Given Documented by: Nitroglycerin (Nitroglycerin Sl 0.4 Mg Tablet) 0.4 mg SUBLINGUAL Q5MIN PRN PRN Reason: Chest Pain Non-Formulary Medication (Coenzyme Q10 [Q-Sorb Co Q-10]) 100 mg PO DAILY [facility] Stop: 11/12/20 09:01 Pantoprazole Sodium (Pantoprazole 40 Mg Tablet) [facility] [place] Last Admin: 10/13/20 12:32 Dose: 40 mg Documented by: Pyridoxine HCl (Pyridoxine Hcl 50 Mg Tablet) 50 mg PO DAILY [facility] Last Admin: 10/13/20 12:31 Dose: 50 mg Documented by: Spironolactone (Spironolactone 25 Mg Tablet) 25 mg PO DAILY [facility] Last Admin: 10/13/20 12:32 Dose: 25 mg Documented by: Vitamin D (Cholecalciferol 1,000 Units Tablet) 1,000 units PO DAILY [facility] Last Admin: 10/13/20 12:32 Dose: 1,000
--- NOTE | 2020-10-14 08:19 | PM.PNCARD ---
Progress Note: A&P Assessment and Plan (1) Non-ST elevation (NSTEMI) myocardial infarction: Code(s): I21.4 - Non-ST elevation (NSTEMI) myocardial infarction Status: Acute Assessment and Plan: Aspirin, Lovenox, Coreg, Losartan, NTG prn. Not on statin as he is intolerant. Troponin peaked at 0.9. Echo did not show wall motion abnormalities, he has diastolic dysfunction. Left heart cath today with Dr. Rojas. (2) PAF (paroxysmal atrial fibrillation): Code(s): I48.0 - Paroxysmal atrial fibrillation Status: Acute Assessment and Plan: Last dose of Eliquis was 2 days ago. Eliquis on hold. (3) Hypertension: Qualifiers: Hypertension type: essential hypertension Qualified Code(s): I10 - Essential (primary) hypertension Code(s): I10 - Essential (primary) hypertension Status: Acute Assessment and Plan: Stable. (4) Chest pain: Code(s): R07.9 - Chest pain, unspecified Status: Acute (5) CAD (coronary artery disease), autologous vein bypass graft: Code(s): I25.810 - Atherosclerosis of coronary artery bypass graft(s) without angina pectoris Status: Acute (6) Insulin dependent diabetes mellitus: Status: Acute Assessment and Plan: Managed by hospitalist. Subjective Date/time seen: 10/14/20 08:19 He reports intermittent chest pressure still. Denies sob. Exam Const: General: cooperative, healthy appearing and comfortable Resp: Auscultation: clear to auscultation bilaterally, no crackles, no rales, no rhonchi and no wheezes Cardio: Jugular venous distension: no JVD Rate: regular rate Rhythm: regular rhythm Heart sounds: no murmurs Peripheral pulses: dorsalis pedis present GI: GI Palp: No abdominal tenderness and Yes Soft to palpation Neuro: General: oriented to person, oriented to place and oriented to time Extrem: Right lower extremity: no edema Left lower extremity: no edema Objective Data Vital Signs Vital Signs: Vital Signs - 24 hr 10/13/20 09:51 10/13/20 10:00 10/13/20 12:00 Temperature 97.7 F Pulse Rate 77 75 77 Respiratory Rate 16 Blood Pressure 129/66 Pulse Oximetry 97 10/13/20 14:00 10/13/20 16:00 10/13/20 18:00 Temperature 98.2 F Pulse Rate 81 78 81 Respiratory Rate 18 Blood Pressure 132/59 L Pulse Oximetry 98 10/13/20 20:00 10/13/20 20:20 10/13/20 22:00 Temperature 97 F L Pulse Rate 78 75 78 Respiratory Rate 18 Blood Pressure 133/59 L Pulse Oximetry 98 10/13/20 22:14 10/13/20 23:06 10/14/20 00:00 Temperature 98.6 F Pulse Rate 75 74 Respiratory Rate 14 18 18 Blood Pressure 140/61 Pulse Oximetry 99 97 10/14/20 02:00 10/14/20 04:00 10/14/20 05:53 Temperature 96.0 F L Pulse Rate 74 79 69 Respiratory Rate 20 Blood Pressure 144/64 H Pulse Oximetry 97 Intake/Output Intake/Output: Intake & Output 10/11/20 10/12/20 10/13/20 10/14/20 23:59 23:59 23:59 23:59 Intake Total 1800 550 Output Total 850 Balance 950 550 Meds/Results Medications: Active Medications Generic Name Dose Route Start Last Admin Trade Name Freq PRN Reason Stop Dose Admin Amiodarone HCl 200 mg 10/12/20 21:00 10/13/20 20:20 Amiodarone Hcl 200 Mg Tablet PO 200 mg HS CURTIS Administration Aspirin 81 mg 10/13/20 10:55 10/13/20 16:12 Aspirin 81 Mg Enteric Tablet PO 81 mg QAM CURTIS Administration Carvedilol 6.25 mg 10/12/20 21:00 10/13/20 20:20 Carvedilol 6.25 Mg Tablet PO 6.25 mg Q12HR CURTIS Administration Dextrose 12.5 gm 10/12/20 22:13 Dextrose 50% 25 Gm/50 Ml Syringe IV PUSH PRN PRN Hypoglycemia Protocol Duloxetine HCl 20 mg 10/12/20 21:00 10/13/20 20:21 Duloxetine Hcl 20 Mg Capsule.Dr PO 20 mg Q12HR CURTIS Administration Fish Oil 1 gm 10/13/20 09:00 10/13/20 12:31 [place] 3 Polyunsat Fatty Acids 1 Gm Cap PO 1 gm DAILY CURTIS Administration Furosemide 40 mg 10/13/20 09:0
--- NOTE | 2020-10-14 09:05 | PCDIET ---
MD consult received. Patient currently NPO for cardiac farm laborer. Will offer education once appropriate.
--- NOTE | 2020-10-14 10:25 | ECG_ITS ---
Measurements Intervals [place] Rate: 62 P: 41 [place]: 185 QRS: -33 QRSD: 126 T: 1 QT: 434 QTc: 442 Interpretive Statements SINUS RHYTHM LEFT AXIS DEVIATION INTRAVENTRICULAR CONDUCTION DELAY CANNOT RULE OUT SEPTAL INFARCT, AGE INDETERMINATE BORDERLINE ST-T WAVE ABNORMALITY- INFERIOR LEADS ABNORMAL ECG Electronically Signed On 10-14-2020 12:25:30 REFINISH TECHNICIAN by Luke Nick D.O.
--- NOTE | 2020-10-14 10:29 | WPDCARDPROC ---
Cardiac Cath Procedure Note Date of procedure:: 10/14/20 Performing physician:: Kirk Rojas MD Indication:: coronary artery disease with previous surgical and percutaneous revascularization acute coronary syndrome Brief clinical history:: this is a 70-year-old patient underwent bypass grafting in 1993. He and presents to the hospice this time with chest pain and troponin elevation indicative of acute coronary syndrome. There are no significant ECG abnormalities. In this setting he is being brought for follow-up angiography. Procedure Procedure performed:: Left heart catheterization with left ventriculography coronary angiography vein graft angiography internal mammary graft angiography PTCA and attempted stenting of saphenous vein graft to OM Sedation/Medication given:: fentanyl 50 mg Versed 2 mg case start time 831 case end time 10:10 a.m. sedation provided by Marjorie Vences RN, trained observer Access site:: right femoral artery Estimated blood loss:: 40-50 cc Procedure note:: patient was brought to the cardiac catheterization lab in the postabsorptive state the right femoral triangle was prepped and draped in the usual fashion. Anesthesia was provided with 1% lidocaine infiltrated locally. Using the modified Seldinger technique a 5 [place] sheath was placed into the femoral artery. After this left heart catheterization was carried out. I utilized a 5 [place] angled pigtail catheter to document left-sided hemodynamics and injected LV g in the are AO projection. After this I injected the left coronary artery using a standard 5 [place] FL4 catheter. The right coronary was injected using a standard 5 [place] JR4 catheter. The same catheter was used to inject the stump of the vein graft to the RCA. In internal mammary graft catheter was then used to inject the left internal mammary graft to the LAD as well as the vein graft to the ramus /OM. Following review of the cineangiograms PCI of the vein graft to the OM was recommended and attempted as detailed below. Following PCI the sheath was sutured in position the patient was taken to the holding area for recovery and sheath removal. The patient was reporting moderate 8/10 ischemic chest pain upon leaving the cath lab radiology technician. Findings:: Hemodynamics: Central aortic pressure was 1 22/40 left ventricle 122/0 end-diastolic pressure of 15. There is gradient upon pullback across the aortic valve. Left ventricle: The LV is mildly enlarged there is inferior wall moderate to severe hypokinesia of the anterior wall contracts well the global ejection fraction is 50% by visual estimation. The left main coronary artery is medium in caliber and free of disease the left anterior descending is 100% occluded at its origin which is a chronic finding. The circumflex is a medium caliber artery giving rise to 2 proximal OM branches which are extremely small a both of which have 80-90% lesions in the. There then is a posterolateral and left PDA as the circumflex is dominant to the posterior circulation. These vessels are quite small. One of the very small PL branches has an 80-90% stenosis. The right coronary artery is a small caliber nondominant vessel which does have a visible stent in its midportion. This area of the right coronary artery has complex 90% stenosis but once again only provides flow to 2 acute marginal RV branches. Left internal mammary artery was injected its anastomosis into the mid LAD is nicely visualized there was excellent flow in the HOLT the LAD distal to this that anastomosis is a small to medium caliber vessel but with MERARI 3 flow down to the apex and back proximally to the point of proximal occlusion. Saphenous vein graft to the right coronary artery is occluded at its origin this is a chronic finding. Saphenous vein graft to the ramus/OM is a moderate to large caliber segment of saphenous vein. In the mid shaft portion of this graft t
[2020-10-14] MEDS: MORPHINE SULFATE (*CRX) 4 MG/ML INJ IV PUSH (10:33)
[2020-10-14] MEDS: SODIUM CHLORIDE 0.9% IV 1,000 ML 125 ML IV CONT (11:30)
--- NOTE | 2020-10-14 12:07 | SUR.PHASEII ---
1130 Angiomax gtt D/C. sheath to be pulled 2 hours post D/C at 1330.
[2020-10-14] MEDS: NITROGLYCERIN SL 0.4 MG TABLET SUBLINGUAL ×2 (13:38→14:00)
--- NOTE | 2020-10-14 13:38 | SUR.PHASEII ---
Pt c/o increased in CP to 06/21. NitroSL 0.4mg given. Will continue to monitor.
--- NOTE | 2020-10-14 15:00 | PC.NURSE ---
patient staying in [facility] awaiting tranfer to [facility].
--- NOTE | 2020-10-14 15:51 | SUR.PHASEII ---
Report called to FARIDA Kumar at [facility] for transfer.
--- NOTE | 2020-10-14 16:00 | SUR.PHASEII ---
Late entry note for 1345. Pt states CP still 8/10 after NTG, EKG completed, no changes noted. TARA Dugan called and notified of CP. Second dose NTG SL given to pt with no relief. TARA Dugan asked to call Dr. Nick. Dr. Nick called and notified of pt CP with no relief. Order received for NTG gtt.
--- NOTE | 2020-10-14 16:02 | SUR.PHASEII ---
Late entry for 14:30 - Pt reports CP now at 4/10 after starting NTG gtt. Will continue to monitor.
--- NOTE | 2020-10-14 16:12 | SUR.PHASEII ---
[facility] called to set up transport. Report given, time for transport scheduled for 1729.
--- NOTE | 2020-10-14 18:29 | PM.DS ---
DS: Admitting Diagnosis Admitting Diagnosis Admitting Diagnosis: Chest pain, Elevated troponin DS: Discharge Diagnosis Discharge Diagnosis (1) CAD (coronary artery disease), autologous vein bypass graft: Code(s): I25.810 - Atherosclerosis of coronary artery bypass graft(s) without angina pectoris Status: Acute Assessment and Plan: Mild non ST elevation myocardial infarction probable. Versus unstable angina. Seen by Cardiology and after holding Eliquis 48 hours taken to the quality lab assoc where obtuse marginal vein graft was attempted to be stented. Partially angioplastied but marked calcium buildup and was unable to past stent. It was felt this is probably the culprit lesion and patient was transferred to [facility] for further intervention possible rotary blade angioplasty. HOLT to the LAD was patent and ejection fraction was normal by catheterization (2) Insulin dependent diabetes mellitus: Status: Acute Assessment and Plan: Sliding scale continued while here and apparently what he follows at home (3) Hypertension: Qualifiers: Hypertension type: essential hypertension Qualified Code(s): I10 - Essential (primary) hypertension Code(s): I10 - Essential (primary) hypertension Status: Acute Assessment and Plan: Pressure well controlled continue the Coreg and losartan (4) PAF (paroxysmal atrial fibrillation): Code(s): I48.0 - Paroxysmal atrial fibrillation Status: Acute Assessment and Plan: Sinus rhythm at present time continue beta-julio and amiodarone. Can resume anticoagulation after procedure further intervention at [facility] DS: Summary Hospital Course Hospital Course: 70-year-old hypertensive type 2 diabetic with previous coronary artery bypass graft surgery presented with chest discomfort and shortness of breath. Had mild elevation in troponin thought to have probably non ST elevation myocardial infarction. After holding Eliquis for 48 hours he was taken to the quality lab assoc where his HOLT graft to the LAD was patent but there was a 80% stenosis to vein graph to large obtuse marginal. Attempted stenting was unsuccessful due to calcification of the vessel. Arrangements were made for him to be transferred to [facility] in [place] for further intervention and possible rotary blade stenting. Condition on discharge stable with no active pain Time Spent with Patient Time attestation: Total time spent providing and/or coordinating discharge services: 35 minutes Exam Narrative: Exam Narrative: Condition on discharge Blood pressure 140/76 pulse is 76 saturating 100% on 2 L nasal cannula Lungs clear CV regular rate rhythm no murmurs or gallops Abdomen is soft nontender Extremities without edema distal pulses are 2+ Neuro alert pleasant cooperative no focal deficits He was transferred to [facility] in [place] was early in by ambulance in stable condition DS: Data Data Completed and Pending Labs on day of discharge: Labs from last 24 hours 10/14/20 10/14/20 10/13/20 04:32 04:32 20:40 WBC 10.0 RBC 4.88 Hgb 13.0 L Hct 39.7 L MCV 81.4 MCH 26.6 MCHC 32.7 RDW 13.6 Plt Count 178 MPV 10.7 H Immature Gran % (Auto) 0.3 Neut % (Auto) 64.5 Lymph % (Auto) 26.9 [place] % (Auto) 7.7 Eos % (Auto) 0.3 Baso % (Auto) 0.3 Lymph # (Auto) 2.68 [place] # (Auto) 0.8 H Eos # (Auto) 0.0 Baso # (Auto) 0.0 Abs Immat Gran (auto) 0.03 Absolute Neuts (auto) 6.4 Absolute Nucleated RBC 0.0 Nucleated RBC % 0.0 Sodium 137 Potassium 4.3 Chloride 101 Carbon Dioxide 31 H Anion Gap 5 L BUN 28 H Creatinine 0.80 Estim Creat Clear Calc 84 Estimated GFR > 60 Glucose 206 H POC Capillary Glucose 203 H Calcium 9.0 Troponin I 0.704 H* Discharge Plan Discharge Attending physician on discharge: Quentin Foster
--- NOTE | 2020-10-14 18:40 | PM.TDS ---
Transfer Discharge Sum: Prov Provider Date of admission: 10/13/20 10:42 Primary care physician: Rafita Paulson MD Admitting clinician: Quentin Foster MD Consults: 10/12/20 Consult to Physician Routine Comment: Consulting Provider: Luke Nick Reason for consultation: chest pain, abnormal troponin Has provider been notified: Yes 10/12/20 22:19 Consult to Dietitian Routine Reason for Consult:: CURRENT DIABETIC PATIENT 10/13/20 Consult to Physician Routine Comment: left message on voicemail Consulting Provider: Kirk Rojas call taker/MD group to consult: HCG Reason for consultation: NSTEMI for cardiac cath Has provider been notified: Yes DS: Admitting Diagnosis Admitting Diagnosis Admitting Diagnosis: Chest pain, Elevated troponin DS: Discharge Diagnosis Discharge Diagnosis (1) CAD (coronary artery disease), autologous vein bypass graft: Code(s): I25.810 - Atherosclerosis of coronary artery bypass graft(s) without angina pectoris Status: Acute Assessment and Plan: Mild non ST elevation myocardial infarction probable. Versus unstable angina. Seen by Cardiology and after holding Eliquis 48 hours taken to the warehouse general laborer where obtuse marginal vein graft was attempted to be stented. Partially angioplastied but marked calcium buildup and was unable to past stent. It was felt this is probably the culprit lesion and patient was transferred to [facility] in [place] for further intervention possible rotary blade angioplasty. HOLT to the LAD was patent and ejection fraction was normal by catheterization (2) Insulin dependent diabetes mellitus: Status: Acute Assessment and Plan: Sliding scale continued while here and apparently what he follows at home (3) Hypertension: Qualifiers: Hypertension type: essential hypertension Qualified Code(s): I10 - Essential (primary) hypertension Code(s): I10 - Essential (primary) hypertension Status: Acute Assessment and Plan: Pressure well controlled continue the Coreg and losartan (4) PAF (paroxysmal atrial fibrillation): Code(s): I48.0 - Paroxysmal atrial fibrillation Status: Acute Assessment and Plan: Sinus rhythm at present time continue beta-julio and amiodarone. Can resume anticoagulation after procedure further intervention at [facility] Transfer Discharge Sum: Med Medications Active and Home Medications: Home Medications apixaban 5 mg tablet 5 mg PO BID 11/24/19 [History Confirmed 10/12/20] cholecalciferol (vitamin D3) 25 mcg (1,000 unit) tablet 25 mcg PO DAILY 11/24/19 [History Confirmed 10/12/20] coenzyme Q10 100 mg capsule 100 mg PO DAILY 11/24/19 [History Confirmed 10/12/20] furosemide 40 mg tablet 40 mg PO QAM 11/24/19 [History Confirmed 10/12/20] magnesium oxide 400 mg PO DAILY 11/24/19 [History Confirmed 10/12/20] meloxicam 15 mg tablet 15 mg PO DAILY 11/24/19 [History Confirmed 10/12/20] multivitamin with iron-mineral 1 tablet PO DAILY 11/24/19 [History Confirmed 10/12/20] omega-3 fatty acids 1,000 mg capsule 1,000 mg PO DAILY 11/24/19 [History Confirmed 10/12/20] pantoprazole 40 mg tablet,delayed release 40 mg PO QAM 11/24/19 [History Confirmed 10/12/20] pyridoxine (vitamin B6) 50 mg capsule 50 mg PO DAILY 11/24/19 [History Confirmed 10/12/20] spironolactone 25 mg tablet 25 mg PO DAILY #90 tablet 01/30/20 [Rx Confirmed 10/12/20] amiodarone 200 mg PO HS 06/15/20 [History Confirmed 10/12/20] duloxetine 20 mg PO BID 06/15/20 [History Confirmed 10/12/20] insulin aspart U-100 [Novolog U-100 Insulin aspart] 1 sliding scale dose SUBCUT USEASDIRECTD 06/15/20 [History Confirmed 10/12/20] Colcrys 0.6 mg tablet 0.6 mg PO DAILY #60 tablet NS 08/17/20 [Rx Confirmed 10/12/20] carvedilol 6.25 mg tablet 6.25 mg PO Q12H #60 tablet 09/13/20 [Rx Confirmed 10/12/20] losartan 50 mg tablet 50 mg PO HS #30 tablet 10/11/20 [Rx Confirmed 10/12/20] Active Medications Amiodarone
== END 2020-10-14 18:44 | disposition short-term general hospital (02) | DRG 251 ==
LOC: ANHED 18:59 → ANHIMU 19:51 → ANHCPC 10-14 15:04
PROVIDERS: Internal Medicine Cardiovascular Disease; Specialist; Admitting Provider Internal Medicine; Emergency Provider Emergency Medicine; PCP Internal Medicine; Visit Provider Internal Medicine
PROC: 4A023N7 Measurement of Cardiac Sampling and Pressure, Left Heart, Percutaneous Approach (ICD-10-PCS; CPT 93452; 2020-10-14 08:30)
PROC: 02703ZZ Dilation of Coronary Artery, One Artery, Percutaneous Approach (ICD-10-PCS; CPT 92920; 2020-10-14 08:30)
PROC: 4A023N7 Measurement of Cardiac Sampling and Pressure, Left Heart, Percutaneous Approach (ICD-10-PCS; CPT 93459; 2020-10-14 08:30)
DX: I21.4 Non-ST elevation (NSTEMI) myocardial infarction (principal); I25.810 Atherosclerosis of coronary artery bypass graft(s) without angina pectoris; I50.32 Chronic diastolic (congestive) heart failure; T82.855A Stenosis of coronary artery stent, initial encounter; I25.84 Coronary atherosclerosis due to calcified coronary lesion; I11.0 Hypertensive heart disease with heart failure; I48.0 Paroxysmal atrial fibrillation; G47.33 Obstructive sleep apnea (adult) (pediatric); J44.9 Chronic obstructive pulmonary disease, unspecified; E11.42 Type 2 diabetes mellitus with diabetic polyneuropathy; E78.5 Hyperlipidemia, unspecified; K21.9 Gastro-esophageal reflux disease without esophagitis; Z95.5 Presence of coronary angioplasty implant and graft; Z79.01 Long term (current) use of anticoagulants; Z79.4 Long term (current) use of insulin; Z79.899 Other long term (current) drug therapy; Z98.42 Cataract extraction status, left eye
CPT/HCPCS: 36415; 71045; 80048; 84484; 85025; 85610; 85730; 92920; 93005; 93306; 93458; 93459; 96372; 99291; A9270; C1725; C1769; C1887; C1894; G0378; J0461; J0583; J1644; J1650; J2250; J2270; J3010; J7030; J7040

== ENCOUNTER → 2020-10-18 12:02 | Outpatient (CLI) | payer MEDICARE, SELFPAY ==
--- NOTE | ~2020-10-18 | XR_ITS ---
EXAMINATION: XR knee RT 2V DATE: 10/18/2020 12:53 INDICATION: Right knee pain. TECHNIQUE: 2 views of right knee were obtained. COMPARISON: Right knee radiographs 08/01/2019 FINDINGS: There is varus angulation at the knee. No fracture. There is severe osteoarthritis of media l compartment and mild osteoarthritis of patellofemoral compartment. There is a small knee joint effu shahriar. IMPRESSION: 1. Worsened severe right knee osteoarthritis. 2. Small right knee joint effusion. Reviewed, dictated and finalized at location B. GER OF CORPORATE
== END ==
PROVIDERS: PCP Internal Medicine; Visit Provider Nurse Practitioner Adult Health
DX: M25.461 Effusion, right knee (principal); M17.11 Unilateral primary osteoarthritis, right knee
CPT/HCPCS: 73560

== ENCOUNTER 2020-10-20 20:24 | Observation (INO) | payer MEDICARE, SELFPAY ==
--- NOTE | ~2020-10-20 | XR_ITS ---
EXAMINATION: XR chest 1V portable INDICATION: Chest pain TECHNIQUE: Portable AP chest at 2059 hours COMPARISON: 10/12/2020 FINDINGS: The lungs are free of acute opacities. There is no pleural effusion or pneumothorax. The he art size is normal. Median sternotomy wires and mediastinal surgical clips are seen, likely from prio r coronary artery bypass grafting. IMPRESSION: 1. No acute cardiopulmonary abnormality. Reviewed, dictated and finalized at location A. ILING INSTRUCTOR
[2020-10-20 20:24] VITALS: BP 140/73; PULSE 89; PULSE 90; RESP 15; TEMP 36.4; O2SAT 98
--- NOTE | 2020-10-20 20:29 | ECG_ITS ---
Measurements Intervals [place] Rate: 88 P: 61 [place]: 218 QRS: -57 QRSD: 115 T: 34 QT: 373 QTc: 452 Interpretive Statements SINUS RHYTHM WITH FIRST DEGREE AV BLOCK CANNOT RULE OUT SEPTAL INFARCT, AGE INDETERMINATE LEFT ANTERIOR FASCICULAR BLOCK ABNORMAL ECG Electronically Signed On 10-21-2020 7:20:00 TELEVISION INSTALLER HELPER by Luke Nick D.O.
[2020-10-20] MEDS: NITROGLYCERIN SL 0.4 MG TABLET SUBLINGUAL (20:40)
--- NOTE | 2020-10-20 20:47 | ED.GENADULT ---
HPI - General Adult General Chief complaint: Chest Pain Stated complaint: chest pain Source: patient Mode of arrival: ambulatory Limitations: no limitations History of Present Illness HPI narrative: Dinesh is a 70M with a PMH of DMII, HTN, Afib, CABG (bypass 24 years ago) and 2 stents at [place] last week that presented to the ED with chest pain. It started as a heavyness in his chest that radiates to both arms and is getting worse. It is associated with SOB but no N/V or syncope/near-syncope. Related Data Home Medications Medication Instructions Recorded Confirmed apixaban 5 mg tablet 5 mg PO BID 11/24/19 10/20/20 cholecalciferol (vitamin D3) 25 25 mcg PO DAILY 11/24/19 10/20/20 mcg (1,000 unit) tablet coenzyme Q10 100 mg capsule 100 mg PO DAILY 11/24/19 10/20/20 furosemide 40 mg tablet 20 mg PO QAM 11/24/19 10/20/20 magnesium oxide 400 mg PO HS 11/24/19 10/20/20 omega-3 fatty acids 1,000 mg 1,000 mg PO DAILY 11/24/19 10/20/20 capsule pantoprazole 40 mg tablet,delayed 40 mg PO QAM 11/24/19 10/20/20 release pyridoxine (vitamin B6) 50 mg 50 mg PO DAILY 11/24/19 10/20/20 capsule insulin aspart U-100 [Novolog 1 sliding scale dose SUBCUT 06/15/20 10/20/20 U-100 Insulin aspart] USEASDIRECTD aspirin 81 mg tablet,delayed 81 mg PO DAILY 10/18/20 10/20/20 release clopidogrel 75 mg tablet 75 mg PO DAILY 10/18/20 10/20/20 atorvastatin 80 mg PO HS 10/20/20 10/20/20 multivit with min-folic acid 2 tablet PO BID 10/20/20 10/20/20 [Multivitamin For Cholesterol] Allergies Allergy/AdvReac Type Severity Reaction Status Date / Time No Known Allergies Allergy Verified 10/12/20 14:00 Review of Systems Constitutional: Constitutional: Denies chills and Denies fever(s) Eyes: Eyes: Reports no additional eye complaints ENT: Reports system reviewed and no additional complaints, except as documented Cardiovascular: Cardiovascular: Reports as per HPI Respiratory: Respiratory: Reports as per HPI Gastrointestinal: Gastrointestinal: Reports no additional gastrointestinal complaints Genitourinary: Genitourinary: Reports no additional male genitourinary complaints Musculoskeletal: Musculoskeletal: Reports no additional musculoskeletal complaints Integumentary/Breasts: Skin/Breast: Reports system reviewed and no additional complaints, except as docu Neurologic: Comments: slight LUU Psychiatric: Psychiatric: Reports no additional psychiatric complaints Endocrine: Endocrine: Reports no additional endocrine complaints Hematologic/Lymphatic: Hematologic/Lymphatic: Reports no additional hematologic/lymphatic complaints [facility] Past Medical History Medical History CAD (coronary artery disease), autologous vein bypass graft Carpal tunnel syndrome of left wrist Cervical spine fracture Treated conservatively 2015 COPD (chronic obstructive pulmonary disease) Cubital tunnel syndrome on left Depression Diabetes Dyslipidemia Eczema Essential hypertension GERD (gastroesophageal reflux disease) Kidney stones MANNY on CPAP Paroxysmal atrial fibrillation Peripheral neuropathy Subdural hematoma 2014 Surgical History Surgical History Cataract extraction status, left eye History of cardiac catheterization 2003 with 1 stent placed History of cardiac radiofrequency ablation 2013 History of carpal tunnel release Left carpal tunnel release June 2020 History of lithotripsy ESWL x9 History of lumbar surgery S/P CABG x 4 1993 Family History Family History Mother CHF (congestive heart failure) Diabetes mellitus Social History Social History Social History: He is and lives in [facility]. Primary care physician: Dr. Rafita Paulson [facility] power of regulatory attorney: Lenka ()
[2020-10-20 21:00] LABS: Basophils Absolute Auto 0.03 K/mm3 (0.00-0.10); Basophils Percent Auto 0.3 % (0.0-1.0); Eosinophils Absolute Auto 0.11 K/mm3 (0.02-0.50); Hematocrit 39.6 % (37.0-46.0); Hemoglobin 12.9 g/dL (12.4-15.3); Immature Granulocyte Absolute 0.06 K/mm3 (0.00-0.00); Immature Granulocyte Percent A 0.6 % (0.0-0.0); Lymphocytes Absolute Auto 2.84 K/mm3 (1.10-4.50); Lymphocytes Percent Auto 26.5 % (18.0-42.0); Mean Corpuscular HGB Conc 32.6 g/dL (32.0-36.0); Mean Corpuscular Hemoglobin 26.7 pg (27.0-31.0); Mean Corpuscular Volume 81.8 fL (78.0-102.0); Mean Platelet Volume 10.9 fl (8.7-11.0); Monocytes Percent Auto 8.4 % (2.0-11.0); Neutrophils Absolute Auto 6.8 K/mm3 (1.7-7.2); Neutrophils Percent Auto 63.2 % (50.0-70.0); Platelet Count Result 200 K/mm3 (150-420); Red Blood Count 4.84 M/mm3 (4.70-6.10); White Blood Count 10.7 K/mm3 (4.8-10.8)
[2020-10-20 21:10] LABS: Prothrombin Time 10.7 Seconds (9.50-12.10)
[2020-10-20 21:16] LABS: Alanine Aminotransferase 33 U/L (16-63); Albumin Level 3.3 g/dL (3.4-5.0); Alkaline Phosphatase 93 U/L (46-116); Anion Gap 9 mmol/L (8-16); Aspartate Amino Transferase 16 U/L (15-37); Bilirubin,Total 0.3 mg/dL (0.00-1.00); Blood Urea Nitrogen 42 mg/dL (7-18); Calcium 8.5 mg/dL (8.5-10.1); Carbon Dioxide 25 mmol/L (21-32); Chloride 101 mmol/L (98-108); Estimated CRCL calculation 55 ml/min; Estimated Glomerular Filt Rate 56; Glucose 355 mg/dL (70-99); Osmolality Calculated 304 mOsm/kg (285-295); Potassium 4.5 mmol/L (3.5-5.1); Sodium 135 mmol/L (136-145); Total Protein 7.4 g/dL (6.4-8.2)
[2020-10-20 21:18] LABS: Lipase 157 U/L (73-393); Troponin I 58.9 ng/L (0.00-60.4)
[2020-10-20 21:23] LABS: BNP 52.1 pg/mL (0-100)
[2020-10-20 21:33] VITALS: O2SAT 97
[2020-10-20 21:39] VITALS: BP 96/59; PULSE 86; RESP 15; O2SAT 97
--- NOTE | 2020-10-20 22:00 | ADMGEN ---
This patient, Dinesh Lin, was admitted to 2nd Floor Room 207-2. Patient oriented to hospital policies and general routines including ID bracelet, bed and alarms, visiting hours, pain management, procedures, bathroom and other care routines, personal items, smoking policy, room service/diet, and visiting hours. Patient encouraged to report perceived risks to care and to ask questions if they do not understand what they are told or what they should do.
[2020-10-20 22:07] VITALS: BP 114/63; PULSE 78; RESP 18; TEMP 36.3; O2SAT 97
[2020-10-20 22:37] VITALS: PULSE 80
[2020-10-20] MEDS: carvediloL 6.25 MG TABLET PO (22:37)
[2020-10-20] MEDS: CLOPIDOGREL BISULFATE 75 MG TABLET PO (22:37)
[2020-10-20] MEDS: APIXABAN 2.5 MG TABLET 5 MG PO (22:37)
[2020-10-20 23:51] VITALS: BP 134/71; PULSE 79; RESP 18; TEMP 36.8; O2SAT 99
[2020-10-21] VITALS (8 sets, daily range): BP systolic 106–122; BP diastolic 59–72; PULSE 72–80; RESP 14–18; TEMP 35.9–36.6; O2SAT 97–98
--- NOTE | 2020-10-21 02:07 | PC.NURSE ---
pt sleeping, respirations even and regular, no evidence of distress noted, tele monitor on heart rate in the 70's
--- NOTE | 2020-10-21 03:06 | PC.NURSE ---
lab at bedside to draw troponin level
[2020-10-21 03:27] LABS: Troponin I 66.8 ng/L (0.00-60.4)
--- NOTE | 2020-10-21 03:29 | PC.NURSE ---
Dr Callejas notified of troponin 66.8, no new orders at this time, to notify doctor if patient has chest pain and or nitro given for pain
--- NOTE | 2020-10-21 06:18 | PC.NURSE ---
pt called out and reported a blood glucose of 58 according to his continuous monitoring system, pt given orange juice and peanut butter with jonas crackers.
--- NOTE | 2020-10-21 06:34 | PC.NURSE ---
pt reports blood glucose level of 70 now and denies any symptoms related to bg level. pt reports chest pressure still present but denies pain like he had upon coming to ED, denies need for pain medication at this time. pt informed of repeat troponin level at 0900 and is agreeable with plan of care
[2020-10-21] MEDS: APIXABAN 2.5 MG TABLET 5 MG PO (08:26)
[2020-10-21] MEDS: ASPIRIN 81 MG ENTERIC TABLET PO (08:27)
[2020-10-21] MEDS: OMEGA 3 POLYUNSAT FATTY ACIDS 1 GM CAP PO (08:27)
[2020-10-21] MEDS: CHOLECALCIFEROL 1,000 UNITS TABLET 1000 UNITS PO (08:28)
[2020-10-21] MEDS: FUROSEMIDE 20 MG TABLET PO (08:28)
[2020-10-21] MEDS: PANTOPRAZOLE 40 MG TABLET PO (08:28)
[2020-10-21] MEDS: SPIRONOLACTONE 25 MG TABLET PO (08:28)
[2020-10-21] MEDS: carvediloL 6.25 MG TABLET PO (08:29)
[2020-10-21] MEDS: THERAPEUTIC MULTIVITAMINS/MINERALS TAB (*BKC) 1 TABLET PO (08:37)
[2020-10-21 09:33] LABS: Troponin I 60.8 ng/L (0.00-60.4)
--- NOTE | 2020-10-21 11:03 | PM.SD ---
Same Day Admit/Disch: HPI History of Present Illness Chief complaint: chest pain Narrative: Dinesh Lin is a 70 year old male who came into the ER last night complaining of midsternal chest pain radiating into both arms as far down as 1/2 of each arm upper arm. Patient was given nitro in the ER which did relieve his pain. Our lab switched over to a new more sensitive troponin reading that has negative values of 0 up to 60.4. Serial troponin as follows: 2100 hours 58.9, 0300 hours 66.8, 0900 hours 60.8. With this new more sensitive troponin lab workup indicates the 2nd 3rd levels were positive. patient has a cardiac history of CABG 24 years ago hypertension atrial fibrillation patient had an CT around 11/10/2020 and had 2 stents placed patient also has a history of type 2 diabetes. Patient is currently taking Eliquis Plavix and aspirin. During rounding this morning patient admitted he still has midsternal chest pain rating as noted above but has improved saying it is mild but get a pain rating of 5/10 with a stabbing quality. Denies any lightheadedness or dizziness no numbness or tingling. [facility] Past Medical History Medical History (Updated 10/21/20 @ 11:18 by STEPHANIE Grajeda) CAD (coronary artery disease), autologous vein bypass graft Carpal tunnel syndrome of left wrist Cervical spine fracture Treated conservatively 2015 COPD (chronic obstructive pulmonary disease) Cubital tunnel syndrome on left Depression Diabetes Dyslipidemia Eczema Essential hypertension GERD (gastroesophageal reflux disease) Kidney stones MANNY on CPAP Paroxysmal atrial fibrillation Peripheral neuropathy Subdural hematoma 2014 Surgical History Surgical History Cataract extraction status, left eye History of cardiac catheterization 2004 with 1 stent placed History of cardiac radiofrequency ablation 2014 History of carpal tunnel release Left carpal tunnel release June 2020 History of lithotripsy ESWL x9 History of lumbar surgery S/P CABG x 4 1993 Family History Family History Mother CHF (congestive heart failure) Diabetes mellitus Social History Social History Social History: He is and lives in [facility]. Primary care physician: Dr. Rafita Paulson [facility] power of patent prosecution attorney: Lenka () Code status: Full code Smoking status: Former smoker Additional smoking assessment comments: 2PK/DAY - QUIT Alcohol intake: current Drinks per week: 1 Substance use: never Substance use type: does not use Gender identity (if verbalized by the patient): Male Spiritual care concerns: No Same Day Admit/Disch: Med Pre-admit Medications Home Medications Medication Instructions Recorded Confirmed Type apixaban 5 mg tablet 5 mg PO BID 11/24/19 10/20/20 History cholecalciferol (vitamin D3) 25 25 mcg PO DAILY 11/24/19 10/20/20 History mcg (1,000 unit) tablet coenzyme Q10 100 mg capsule 100 mg PO DAILY 11/24/19 10/20/20 History furosemide 40 mg tablet 20 mg PO QAM 11/24/19 10/20/20 History magnesium oxide 400 mg PO HS 11/24/19 10/20/20 History omega-3 fatty acids 1,000 mg 1,000 mg PO DAILY 11/24/19 10/20/20 History capsule pantoprazole 40 mg tablet,delayed 40 mg PO QAM 11/24/19 10/20/20 History release pyridoxine (vitamin B6) 50 mg 50 mg PO DAILY 11/24/19 10/20/20 History capsule spironolactone 25 mg tablet 25 mg PO DAILY #90 tablet 01/30/20 10/20/20 Rx insulin aspart U-100 [Novolog 1 sliding scale dose SUBCUT 06/15/20 10/20/20 History U-100 Insulin aspart] USEASDIRECTD carvedilol 6.25 mg tablet 6.25 mg PO Q12H #60 tablet 09/13/20 10/20/20 Rx losartan 50 mg tablet 50 mg PO HS #30 tablet 10/11/20 10/20/20 Rx aspirin 81 mg tablet,delayed 81 mg PO DAILY 10/18/20 10/20/20 History release clopidogre
[2020-10-21] MEDS: NITROGLYCERIN SL 0.4 MG TABLET SUBLINGUAL (11:08)
--- NOTE | 2020-10-21 13:19 | PC.NURSE ---
Patient to be transfer to [facility] for cardiac. Report called nurse, Vane working on 6600 unit. Patient will be going to BED [address] notified, but unable to ALS transfer. [facility] notified and will be able to ACLS transfer. Patient aware.
--- NOTE | 2020-10-21 13:47 | PC.NURSE ---
1345 Safe transfer to [facility].
--- NOTE | 2020-10-21 13:47 | PC.NURSE ---
6132 Patient had his insuline pump on, house shoes, cell phone with him, eye glasses, and black little case (diabetes stuff with him.
== END 2020-10-21 13:45 | disposition short-term general hospital (02) ==
LOC: CHSED 20:27 → CHS2ND 21:37
PROVIDERS: Admitting Provider Family Medicine; Emergency Provider Family Medicine; PCP Internal Medicine; Visit Provider Family Medicine
DX: R07.9 Chest pain, unspecified (principal); I25.10 Atherosclerotic heart disease of native coronary artery without angina pectoris; I10 Essential (primary) hypertension; I48.0 Paroxysmal atrial fibrillation; J44.9 Chronic obstructive pulmonary disease, unspecified; E11.42 Type 2 diabetes mellitus with diabetic polyneuropathy; E78.5 Hyperlipidemia, unspecified; K21.9 Gastro-esophageal reflux disease without esophagitis; G47.33 Obstructive sleep apnea (adult) (pediatric); G56.22 Lesion of ulnar nerve, left upper limb; F32.9 Major depressive disorder, single episode, unspecified; Z79.01 Long term (current) use of anticoagulants; Z95.5 Presence of coronary angioplasty implant and graft; Z95.1 Presence of aortocoronary bypass graft; Z87.891 Personal history of nicotine dependence; Z96.41 Presence of insulin pump (external) (internal)
CPT/HCPCS: 36415; 71045; 80053; 83690; 83880; 84484; 85025; 85610; 93005; 99285; A9270; G0378

== ENCOUNTER 2020-10-24 07:46 | Outpatient (CLI) | payer MEDICARE, SELFPAY ==
[2020-10-24 08:05] LABS: Basophils Absolute Auto 0.05 K/mm3 (0.00-0.10); Basophils Percent Auto 0.4 % (0.0-1.0); Eosinophils Percent Auto 1.6 % (1.0-6.0); Hematocrit 41.8 % (37.0-46.0); Hemoglobin 13.7 g/dL (12.4-15.3); Immature Granulocyte Absolute 0.07 K/mm3 (0.00-0.00); Immature Granulocyte Percent A 0.6 % (0.0-0.0); Lymphocytes Absolute Auto 3.38 K/mm3 (1.10-4.50); Lymphocytes Percent Auto 26.6 % (18.0-42.0); Mean Corpuscular HGB Conc 32.8 g/dL (32.0-36.0); Mean Corpuscular Hemoglobin 27.1 pg (27.0-31.0); Mean Corpuscular Volume 82.6 fL (78.0-102.0); Mean Platelet Volume 11.3 fl (8.7-11.0); Monocytes Absolute Auto 0.95 K/mm3 (0.10-0.90); Monocytes Percent Auto 7.5 % (2.0-11.0); Neutrophils Percent Auto 63.3 % (50.0-70.0); Platelet Count Result 244 K/mm3 (150-420); Red Blood Count 5.06 M/mm3 (4.70-6.10); White Blood Count 12.7 K/mm3 (4.8-10.8)
[2020-10-24 08:15] LABS: Hemoglobin A1C 7.4 % (<5.7)
[2020-10-24 08:22] LABS: Creatinine Urine 208.14 mg/dL (40-278); MALB Creatinine Ratio 6.2 mg/g (0-30); Microalbumin Urine Random < 13.0 mg/L
[2020-10-24 08:40] LABS: Alanine Aminotransferase 30 U/L (16-63); Albumin Level 3.4 g/dL (3.4-5.0); Alkaline Phosphatase 94 U/L (46-116); Anion Gap 9 mmol/L (8-16); Aspartate Amino Transferase 15 U/L (15-37); Bilirubin,Total 0.4 mg/dL (0.00-1.00); Blood Urea Nitrogen 43 mg/dL (7-18); Calcium 8.8 mg/dL (8.5-10.1); Carbon Dioxide 27 mmol/L (21-32); Chloride 104 mmol/L (98-108); Cholesterol 114 mg/dL (0-200); Estimated Glomerular Filt Rate 55; Glucose 84 mg/dL (70-99); HDL Direct 33 mg/dL (40-60); LDL Cholesterol Calculated 70 mg/dL (<130); Osmolality Calculated 299 mOsm/kg (285-295); Potassium 4.4 mmol/L (3.5-5.1); Sodium 140 mmol/L (136-145); Total Protein 7.2 g/dL (6.4-8.2); Triglycerides 56 mg/dL (0-150)
== END 2020-10-24 07:47 | disposition home or self-care (01) ==
LOC: CHSLAB 07:49
PROVIDERS: PCP Internal Medicine
DX: E11.9 Type 2 diabetes mellitus without complications (principal)
CPT/HCPCS: 36415; 80053; 80061; 82043; 83036; 85025

== ENCOUNTER 2020-11-23 12:35 | Outpatient (CLI) | payer MEDICARE, SELFPAY ==
[2020-11-23 13:14] LABS: Add Urine Microscopic? NO; Appearance Urine Clear (Clear); Basophils Absolute Auto 0.04 K/mm3 (0.00-0.10); Basophils Percent Auto 0.5 % (0.0-1.0); Bilirubin Urine Negative (Negative); Blood Urine Negative (Negative); Color Urine Yellow (Yellow); Eosinophils Absolute Auto 0.22 K/mm3 (0.02-0.50); Eosinophils Percent Auto 2.6 % (1.0-6.0); Glucose Urine UA Negative (Negative); Hematocrit 38.3 % (37.0-46.0); Hemoglobin 12.4 g/dL (12.4-15.3); Immature Granulocyte Absolute 0.02 K/mm3 (0.00-0.00); Immature Granulocyte Percent A 0.2 % (0.0-0.0); Ketones Urine Negative (Negative); Leukocyte Esterase Ur Negative LEU/UL (Negative); Lymphocytes Absolute Auto 2.67 K/mm3 (1.10-4.50); Lymphocytes Percent Auto 31.4 % (18.0-42.0); Mean Corpuscular HGB Conc 32.4 g/dL (32.0-36.0); Mean Corpuscular Hemoglobin 26.5 pg (27.0-31.0); Mean Corpuscular Volume 81.8 fL (78.0-102.0); Mean Platelet Volume 10.6 fl (8.7-11.0); Monocytes Absolute Auto 0.72 K/mm3 (0.10-0.90); Monocytes Percent Auto 8.5 % (2.0-11.0); Neutrophils Absolute Auto 4.8 K/mm3 (1.7-7.2); Neutrophils Percent Auto 56.8 % (50.0-70.0); Nitrate Urine Negative (Negative); Platelet Count Result 194 K/mm3 (150-420); Protein Urine Negative (Negative); Red Blood Count 4.68 M/mm3 (4.70-6.10); Red Cell Distribution Width 14.6 % (11.6-14.4); Urobilinogen Urine 0.2 mg/dL (0.2-1.0); White Blood Count 8.5 K/mm3 (4.8-10.8)
[2020-11-23 13:27] LABS: BNP 135 pg/mL (0-100)
[2020-11-23 13:29] LABS: Alanine Aminotransferase 50 U/L (16-63); Albumin Level 3.4 g/dL (3.4-5.0); Alkaline Phosphatase 100 U/L (46-116); Anion Gap 7 mmol/L (8-16); Aspartate Amino Transferase 24 U/L (15-37); Bilirubin,Total 0.3 mg/dL (0.00-1.00); Blood Urea Nitrogen 23 mg/dL (7-18); CRP 0.5 mg/dL (0.0-0.9); Calcium 8.6 mg/dL (8.5-10.1); Carbon Dioxide 27 mmol/L (21-32); Chloride 102 mmol/L (98-108); Estimated Glomerular Filt Rate > 60; Glucose 218 mg/dL (70-99); Osmolality Calculated 292 mOsm/kg (285-295); Potassium 4.4 mmol/L (3.5-5.1); Sodium 136 mmol/L (136-145); Total Protein 7.6 g/dL (6.4-8.2)
[2020-11-23 13:33] LABS: SARS-CoV-2 Ag Negative (Negative)
[2020-11-24 18:19] LABS: SARS-CoV-2 RNA PCR Negative
== END 2020-11-23 12:36 | disposition home or self-care (01) ==
LOC: CHSLAB 12:38
PROVIDERS: PCP Internal Medicine; Visit Provider Internal Medicine
DX: E11.9 Type 2 diabetes mellitus without complications (principal); I50.9 Heart failure, unspecified; R50.9 Fever, unspecified; Z20.822 Contact with and (suspected) exposure to COVID-19
CPT/HCPCS: 36415; 80053; 81003; 83880; 85025; 86140; 87426; C9803; U0003; U0005

== ENCOUNTER 2020-11-30 22:02 | Emergency (ER) | payer MEDICARE, SELFPAY ==
--- NOTE | ~2020-11-30 | CT_ITS ---
EXAMINATION: CT abdomen pelvis wo con DATE: 11/30/2020 23:14 INDICATION: Right lower quadrant and flank pain TECHNIQUE: Computed tomography (CT) of the abdomen and pelvis was performed without intravenous contr ast. The dose-length product (DLP) was 962.21 mGy-cm. Automated exposure control and iterative recons truction technique were employed. COMPARISON: 08/04/2015 FINDINGS: Minimal dependent atelectasis is present in the lung bases. The heart size is normal. The g allbladder is surgically absent. Punctate calcifications in an otherwise normal spleen likely represe nt healed granulomatous disease. The liver and pancreas are normal. Fat-containing lesions of the adr enal glands, measuring 14 mm on the left and 11 mm on the right, are consistent with myolipomas. Ther e is a 5 mm nonobstructing stone of the right kidney. No stones are identified in the left kidney, th e ureters, or the bladder. There is no hydronephrosis or hydroureter. No pathologically enlarged abdo maria or pelvic lymph nodes are identified. There is no free intraperitoneal gas or evidence of bowel obstruction. There is calcified atherosclerosis of the aorta and many of the other arteries. The nayana endix contains phleboliths and is dilated up to 15 mm. There is subtle edematous stranding of the per iappendiceal fat. No periappendiceal abscess or perforation is identified. There is severe lumbar spo ndylosis. A chronic mild compression fracture of L2 is unchanged. IMPRESSION: 1. Uncomplicated acute appendicitis. These findings were discussed with Dr. Cong Veliz MD in the Em ergency Department at 2335 hours on 11/30/2020. 2. Nonobstructing right nephrolithiasis. Reviewed, dictated and finalized at location [facility] [employer]PER[facility] IMPRESSION: 1. Uncomplicated acute appendicitis. These findings were discussed with Dr. Ivana Veliz MD in the Emergency Department at 2335 hours on 11/30/2020. 2. Nonobstructing right nephrolithiasis.
--- NOTE | ~2020-11-30 | XR_ITS ---
EXAMINATION: XR chest 2V DATE: 11/30/2020 23:54 INDICATION: History of coronary artery disease TECHNIQUE: PA and lateral views of the chest are obtained. COMPARISON: 10/20/2020 FINDINGS: There is mild atelectasis of the lung bases. There is no pleural effusion or pneumothorax. The heart size is normal. A chronic compression fracture is noted in the midthoracic spine. Median st ernotomy wires and mediastinal surgical clips are seen, likely from prior coronary artery bypass dash ting. IMPRESSION: 1. Mild atelectasis of the lung bases. Reviewed, dictated and finalized at location [facility]
[2020-11-30 22:15] VITALS: BP 166/85; PULSE 96; RESP 20; TEMP 36.3; O2SAT 98
[2020-11-30] MEDS: ONDANSETRON HCL ODT 4 MG TABLET PO (22:30)
[2020-11-30] MEDS: KETOROLAC 30 MG/ML VIAL (*BKC) IV PUSH (22:43)
[2020-11-30 22:56] LABS: Basophils Absolute Auto 0.04 K/mm3 (0.00-0.10); Basophils Percent Auto 0.3 % (0.0-1.0); Eosinophils Absolute Auto 0.11 K/mm3 (0.02-0.50); Eosinophils Percent Auto 0.9 % (1.0-6.0); Hematocrit 37.2 % (37.0-46.0); Hemoglobin 12.2 g/dL (12.4-15.3); Immature Granulocyte Absolute 0.05 K/mm3 (0.00-0.00); Immature Granulocyte Percent A 0.4 % (0.0-0.0); Lymphocytes Percent Auto 17.4 % (18.0-42.0); Mean Corpuscular HGB Conc 32.8 g/dL (32.0-36.0); Mean Corpuscular Hemoglobin 26.9 pg (27.0-31.0); Mean Corpuscular Volume 81.9 fL (78.0-102.0); Mean Platelet Volume 10.4 fl (8.7-11.0); Monocytes Absolute Auto 0.81 K/mm3 (0.10-0.90); Monocytes Percent Auto 6.7 % (2.0-11.0); Neutrophils Percent Auto 74.3 % (50.0-70.0); Platelet Count Result 171 K/mm3 (150-420); Red Blood Count 4.54 M/mm3 (4.70-6.10); Red Cell Distribution Width 14.3 % (11.6-14.4); White Blood Count 12.1 K/mm3 (4.8-10.8)
[2020-11-30 22:59] LABS: Add Urine Microscopic? YES; Appearance Urine Clear (Clear); Bilirubin Urine Negative (Negative); Blood Urine Negative (Negative); Color Urine Yellow (Yellow); Glucose Urine UA Negative (Negative); Ketones Urine Trace (Negative); Leukocyte Esterase Ur Negative (Negative); Nitrate Urine Negative (Negative); Protein Urine Negative (Negative); Specific Grav Ur 1.025 (1.010-1.020); Urobilinogen Urine 0.2 mg/dL (0.2-1.0)
[2020-11-30 23:05] LABS: Bacteria Urine Trace /hpf; Mucus Urine Moderate /lpf; RBC Urine 0-2 /hpf (0-2); Squamous Epithelial Cell Urine None seen /hpf (Few); WBC Urine 0-3 /hpf (0-3)
[2020-11-30 23:13] LABS: Alanine Aminotransferase 45 U/L (16-63); Albumin Level 3.7 g/dL (3.4-5.0); Alkaline Phosphatase 92 U/L (46-116); Anion Gap 8 mmol/L (8-16); Aspartate Amino Transferase 28 U/L (15-37); Bilirubin,Total 0.5 mg/dL (0.00-1.00); Blood Urea Nitrogen 25 mg/dL (7-18); Carbon Dioxide 29 mmol/L (21-32); Chloride 101 mmol/L (98-108); Estimated CRCL calculation 58 ml/min; Estimated Glomerular Filt Rate 60; Glucose 198 mg/dL (70-99); Lipase 126 U/L (73-393); Osmolality Calculated 296 mOsm/kg (285-295); Potassium 4.6 mmol/L (3.5-5.1); Sodium 138 mmol/L (136-145); Total Protein 7.8 g/dL (6.4-8.2)
[2020-11-30 23:15] LABS: Lactic Acid Reflex 0.9 mmol/L (0.4-2.0)
--- NOTE | 2020-11-30 23:42 | ECG_ITS ---
SINUS RHYTHM LEFT AXIS DEVIATION BORDERLINE AV CONDUCTION DELAY INCOMPLETE LEFT BUNDLE BRANCH BLOCK CANNOT RULE OUT SEPTAL INFARCT, AGE INDETERMINATE ABNORMAL ECG Electronically Signed On 12-01-2020 8:34:17 GRAIN OILSEED OR PASTURE FARM WORKER by Luke Nick D.O. COMPARED TO ECG 10/20/2020 20:39:26 LEFT-AXIS DEVIATION NOW PRESENT LEFT BUNDLE-BRANCH BLOCK NOW PRESENT MTDD
--- NOTE | 2020-12-01 00:02 | ED.ABDPAIN ---
HPI - Abdominal Pain General Chief Complaint: Abdominal Pain Stated Complaint: side pain Time Seen by Provider: 11/30/20 22:25 Source: patient and family Mode of arrival: ambulatory Limitations: no limitations History of Present Illness HPI narrative: Abdominal pain in RLQ, moderately severe, ongoing, getting worse since about 5pm, associated with nausea. Pain is sharp, made worse with movement. Rest decreases the discomfort some. He states this has been ongoing since 5pm. Related Data Home Medications Medication Instructions Recorded Confirmed apixaban 5 mg tablet 5 mg PO BID 11/24/19 11/30/20 cholecalciferol (vitamin D3) 25 25 mcg PO DAILY 11/24/19 11/30/20 mcg (1,000 unit) tablet coenzyme Q10 100 mg capsule 100 mg PO DAILY 11/24/19 11/30/20 furosemide 40 mg tablet 20 mg PO QAM 11/24/19 11/30/20 magnesium oxide 400 mg PO HS 11/24/19 11/30/20 omega-3 fatty acids 1,000 mg 2,000 mg PO BID 11/24/19 11/30/20 capsule pantoprazole 40 mg tablet,delayed 40 mg PO QAM 11/24/19 11/30/20 release pyridoxine (vitamin B6) 50 mg 100 mg PO DAILY 11/24/19 11/30/20 capsule insulin aspart U-100 [Novolog 1 sliding scale dose SUBCUT 06/15/20 11/30/20 U-100 Insulin aspart] USEASDIRECTD aspirin 81 mg tablet,delayed 81 mg PO DAILY 10/18/20 11/30/20 release clopidogrel 75 mg tablet 75 mg PO DAILY 10/18/20 11/30/20 atorvastatin 80 mg PO HS 10/20/20 11/30/20 multivit with min-folic acid 2 tablet PO BID 10/20/20 11/30/20 isosorbide mononitrate 60 mg PO DAILY 11/30/20 11/30/20 spironolactone 25 mg PO DAILY 11/30/20 11/30/20 tramadol 50 mg PO BID PRN 11/30/20 11/30/20 Allergies Allergy/AdvReac Type Severity Reaction Status Date / Time No Known Allergies Allergy Verified 11/30/20 22:21 Review of Systems Constitutional: Comments: chills Eyes: Eyes: Reports no additional eye complaints ENT: Reports system reviewed and no additional complaints, except as documented Cardiovascular: Cardiovascular: Reports no additional cardiovascular complaints Respiratory: Respiratory: Reports no additional respiratory complaints Gastrointestinal: Gastrointestinal: Reports nausea and Reports vomiting Genitourinary: Genitourinary: Reports no additional male genitourinary complaints Musculoskeletal: Musculoskeletal: Reports no additional musculoskeletal complaints Integumentary/Breasts: Skin/Breast: Reports system reviewed and no additional complaints, except as docu Neurologic: Reports system reviewed and no additional complaints, except as documented Psychiatric: Psychiatric: Reports no additional psychiatric complaints Endocrine: Endocrine: Reports no additional endocrine complaints Hematologic/Lymphatic: Hematologic/Lymphatic: Reports no additional hematologic/lymphatic complaints Allergic/Immunologic: Allergic/Immunologic: Reports no additional allergic/immunologic complaints [facility] Past Medical History Medical History CAD (coronary artery disease), autologous vein bypass graft Carpal tunnel syndrome of left wrist Cervical spine fracture Treated conservatively 2015 COPD (chronic obstructive pulmonary disease) Cubital tunnel syndrome on left Depression Diabetes Dyslipidemia Eczema Essential hypertension GERD (gastroesophageal reflux disease) Kidney stones MANNY on CPAP Paroxysmal atrial fibrillation Peripheral neuropathy Subdural hematoma 2015 Surgical History Surgical History Cataract extraction status, left eye History of cardiac catheterization 2004 with 1 stent placed History of cardiac radiofrequency ablation 2013 History of carpal tunnel release Left carpal tunnel release June 2020 History of lithotripsy ESWL x9 History of lumbar surgery S/P CABG x 4 1993 Family History Family History Mother CHF (congestive heart failure) Diabetes mellitus Soci
[2020-12-01] MEDS: ONDANSETRON INJ 4 MG/2 ML VIAL IV PUSH (00:05)
[2020-12-01] MEDS: HYDROmorphone HCL INJ (*CRX) 2 MG/ML VIAL 1 MG IV PUSH (00:05)
[2020-12-01 00:08] LABS: Prothrombin Time 10.9 Seconds (9.50-12.10)
[2020-12-01 00:30] LABS: BNP 75.9 pg/mL (0-100)
--- NOTE | 2020-12-01 00:32 | PC.NURSE ---
call to elizabeth, awaiting call back
[2020-12-01 00:36] LABS: SARS-CoV-2 Ag Negative (Negative)
--- NOTE | 2020-12-01 01:08 | PC.NURSE ---
owng spoke with dr christopher, surgeon, awaiting call from hospitalist at [facility]
[2020-12-01] MEDS: metroNIDAZOLE 500 MG/ISO 100ML 500 MG/100 ML BAG 100 MG IVPB (01:48)
--- NOTE | 2020-12-01 01:54 | PC.NURSE ---
erp speaking with dr juarez
[2020-12-01 02:39] VITALS: BP 135/71; PULSE 103; RESP 20; TEMP 37.1; O2SAT 98
--- NOTE | 2020-12-01 02:41 | PC.NURSE ---
pt sleeping, easily awakens. no complaints. [facility] called for transfer awaiting arrival..
[2020-12-01 03:18] VITALS: BP 117/78; PULSE 74; RESP 20; TEMP 36.9; O2SAT 97
== END 2020-12-01 03:20 | disposition short-term general hospital (02) ==
PROVIDERS: Emergency Provider Emergency Medicine; PCP Internal Medicine
DX: K35.30 Acute appendicitis with localized peritonitis, without perforation or gangrene (principal); I25.10 Atherosclerotic heart disease of native coronary artery without angina pectoris; J44.9 Chronic obstructive pulmonary disease, unspecified; K21.9 Gastro-esophageal reflux disease without esophagitis; Z87.891 Personal history of nicotine dependence; Z20.822 Contact with and (suspected) exposure to COVID-19
CPT/HCPCS: 36415; 71046; 74176; 80053; 81001; 83605; 83690; 83880; 85025; 85610; 85730; 87426; 93005; 96365; 96367; 96375; 96376; 99285; A9270; C9803; J1170; J1885; J2405; J2543

== ENCOUNTER 2020-12-01 03:53 | Inpatient (IN) | payer MEDICARE, SELFPAY ==
[2020-12-01] VITALS (7 sets, daily range): BP systolic 98–149; BP diastolic 56–79; PULSE 79–105; RESP 17–18; TEMP 36.3–36.6; O2SAT 96–99; BMI 29.5
--- NOTE | 2020-12-01 03:50 | ADMGEN ---
This patient, Dinesh Lin, was admitted to Medical Room 341-01. Patient/family oriented to hospital policies and general routines including ID bracelet, bed and alarms, visiting hours, pain management, procedures, bathroom and other care routines, personal items, smoking policy, room service/diet, and visiting hours. Information on how to activate the Rapid Response Team has been discussed. Patient/Family are encouraged to report perceived risks to care and to ask questions if they do not understand what they are told or what they should do.
[2020-12-01] MEDS: MORPHINE SULFATE (*CRX) 4 MG/ML INJ IV PUSH ×2 (04:34→23:43)
[2020-12-01] MEDS: SODIUM CHLORIDE 0.9% IV 1,000 ML 100 ML IV CONT ×2 (04:35→15:51)
[2020-12-01 05:48] LABS: Basophils Percent Auto 0.2 % (0.2-1.2); Eosinophils Absolute Auto 0.1 K/mm3 (0-0.3); Eosinophils Percent Auto 0.5 % (0-4.4); Hematocrit 38.3 % (42.0-52.0); Hemoglobin 12.3 g/dL (14.0-18.0); Immature Granulocyte Absolute 0.05 K/mm3 (0.00-0.031); Immature Granulocyte Percent A 0.4 % (0-0.5); Lymphocytes Absolute Auto 2.17 K/mm3 (0.9-3.2); Lymphocytes Percent Auto 17.2 % (18.3-44.2); Mean Corpuscular HGB Conc 32.1 g/dl (32-36); Mean Corpuscular Hemoglobin 26.7 pg (26-34); Mean Corpuscular Volume 83.1 fl (80-100); Mean Platelet Volume 10.6 fl (7.4-10.4); Monocytes Absolute Auto 1.4 K/mm3 (0.1-0.6); Monocytes Percent Auto 10.7 % (2.6-8.5); Neutrophils Absolute Auto 8.9 K/mm3 (1.3-6.7); Platelet Count Result 158 k/mm3 (150-375); Red Blood Count 4.61 M/mm3 (4.6-6.20); Red Cell Distribution Width 14.5 % (11.5-14.5); White Blood Count 12.6 K/mm3 (4.5-10.0)
[2020-12-01] MEDS: MORPHINE SULFATE (*CRX) 2 MG/ML INJ IV PUSH (06:31)
[2020-12-01 07:47] LABS: Glucose Point of Care 125 (65-105)
[2020-12-01 07:56] LABS: Anion Gap 6 mmol/L (8-16); Blood Urea Nitrogen 31 mg/dL (9-20); Calcium 8.5 mg/dL (8.4-10.2); Carbon Dioxide 31 mmol/L (22-30); Chloride 102 mmol/L (98-107); Estimated CRCL calculation 69 ml/min; Estimated Glomerular Filt Rate > 60; Glucose 151 mg/dL (75-110); Magnesium 1.7 mg/dL (1.6-2.3); Potassium 4.3 mmol/L (3.4-5.0); Sodium 139 mmol/L (137-145)
[2020-12-01] MEDS: SPIRONOLACTONE 25 MG TABLET PO (08:10)
[2020-12-01] MEDS: PYRIDOXINE HCL 50 MG TABLET 100 MG PO (08:10)
[2020-12-01] MEDS: ISOSORBIDE MONONITRATE 60 MG TAB.ER.24H PO (08:10)
[2020-12-01] MEDS: PANTOPRAZOLE SODIUM IV 40 MG VIAL IV PUSH ×2 (08:10→20:28)
--- NOTE | 2020-12-01 09:36 | PM.IMCN ---
Assessment and Plan Assessment and plan (1) Acute appendicitis: Qualifiers: Acute appendicitis type: with localized peritonitis Appendicitis abscess presence: without abscess Appendicitis gangrene presence: without gangrene Appendicitis perforation presence: without perforation Qualified Code(s): K35.30 - Acute appendicitis with localized peritonitis, without perforation or gangrene Code(s): K35.80 - Unspecified acute appendicitis Status: Acute Assessment and Plan: Patient presented with RLQ pain and nausea. CT abdomen/pelvis showed acute appendicitis with appendix containing phleboliths dilated up to 15 mm with subtle fat stranding, and no evidence of abscess or perforation. He has mild leukocytosis. He is afebrile. Pain currently 8/10. His revised cardiac risk index score is 3, indicating class IV risk. He is able to tolerate moderate activity. General surgery is managing; tentative plan for surgical intervention tomorrow Continue IV Zosyn Continue IV fluids Clear liquid diet Analgesics available as needed for pain (2) CAD (coronary artery disease), autologous vein bypass graft: Code(s): I25.810 - Atherosclerosis of coronary artery bypass graft(s) without angina pectoris Status: Acute Assessment and Plan: History of 4 vessel CABG in 1993 and total of 3 stents. Most recently, in October 2020 he had an acute OR and underwent cardiac catheterization and had 2 stents placed. He is established with clerical support specialist Dr. Alaniz at [facility]. He has a follow-up appointment scheduled for 12/06/2020. He has resumed his typical activities following his OR. He reports angina with exertion about 2 times per week. He has no chest pain at this time. Continue aspirin and Plavix at this time; discussed with general surgery. Will place consult to clerical support specialist for surgical risk assessment; input is very much appreciated Continue losartan, Coreg, Imdur, atorvastatin, and spironolactone. Nitro as needed. (3) PAF (paroxysmal atrial fibrillation): Code(s): I48.0 - Paroxysmal atrial fibrillation Status: Acute Assessment and Plan: S/p radiofrequency ablation. Rate is controlled at this time. Continue carvedilol Eliquis is being held in anticipation of surgical intervention (4) Diabetes: Code(s): E11.9 - Type 2 diabetes mellitus without complications Status: Acute Assessment and Plan: Last A1c October 2020 was 7.4. He is managed on an long-term insulin pump and has been consistent with this therapy for several years. Blood sugars well controlled at this time. Last blood sugar was 125. Continue insulin pump at this time Will plan to transition to bolus insulin perioperatively. Monitor accuchecks ACHS and implement hypoglycemic protocol (5) Hypertension: Qualifiers: Hypertension type: essential hypertension Qualified Code(s): I10 - Essential (primary) hypertension Code(s): I10 - Essential (primary) hypertension Status: Acute Assessment and Plan: Blood pressure evaluated and is generally well controlled, especially given his pain. Last BP 149/79. Continue losartan and carvedilol Monitor blood pressure daily (6) MANNY on CPAP: Code(s): G47.33 - Obstructive sleep apnea (adult) (pediatric); Z99.89 - Dependence on other enabling machines and devices Status: Acute Assessment and Plan: He reports compliance with CPAP nightly. CPAP will be available while he is hospitalized; titrated to home settings HPI Data of Consult Consult date: 12/01/20 Requesting Physician: Cezar Barreto MD Primary Care Provider: Rafita Paulson MD Family Provider: Rafita Paulson MD Consult Narrative Reason for consult: Medical management Narrative: Date of admission: 12/01/2020 Date of service: 12/01/2020 Dinesh Lin is a 70 year old male with a history of coronar
[2020-12-01] MEDS: CLOPIDOGREL BISULFATE 75 MG TABLET PO (10:59)
[2020-12-01] MEDS: carvediloL 6.25 MG TABLET PO ×2 (10:59→17:27)
[2020-12-01] MEDS: ASPIRIN 81 MG ENTERIC TABLET PO (10:59)
[2020-12-01] MEDS: HYDROcodone/acetaminophen (*CRX) 7.5-325 MG TABLET 1 TAB PO ×2 (11:03→17:27)
[2020-12-01 11:58] LABS: Glucose Point of Care 269 (65-105)
--- NOTE | 2020-12-01 12:27 | PM.IMHP ---
H&P: HPI History of Present Illness Date/Time: 12/01/20 12:27 Chief Complaint: Right lower quadrant abdominal pain Narrative: Dinesh Lin is a 70 year old male with a history of insulin-dependent diabetes mellitus, paroxysmal atrial fibrillation on chronic anticoagulation, hypertension, chronic diastolic heart failure, obstructive sleep apnea, and coronary artery disease status post CABG in 1993 and multiple coronary artery stents most recently in October 2020. The patient had an onset of generalized abdominal pain around 3 pm yesterday afternoon. He had associated nausea, but no vomiting. He was unable to get comfortable and tried to rest through the day. Later in the evening the pain suddenly became more severe and localized to the right lower quadrant. He has a history of multiple kidney stones, therefore he was concerned that this was causing his pain, so he presented to the ER for further evaluation. CT scan of the abdomen and pelvis showed acute uncomplicated appendicitis and non-obstructing right nephrolithiasis. Labs revealed a white blood cell count of 12,000. The patient was admitted to our service for surgical evaluation of the acute appendicitis. He was started on broad-spectrum IV antibiotics and analgesics. The patient does take Eliquis and Plavix, with his last dose of Eliquis yesterday morning. The patient is now being seen on the medical floor. He still reports having RLQ abdominal pain that is consistently at an 8/10 on a pain scale. He reports some associated nausea at home that has since resolved, no vomiting. Denies fever or chills. No other complaints at this time. The patient does wear an insulin pump currently in the LLQ of the abdomen. Review of Systems Review of Systems: All systems reviewed & are unremarkable except as noted in HPI and below Constitutional: Constitutional: Reports as per HPI, Denies chills, Denies fatigue, Denies fever(s), Denies headache(s) and Denies weakness Eyes: Eyes: Reports no additional eye complaints, Denies change in vision, Denies dry eyes and Denies eye pain ENT: Reports system reviewed and no additional complaints, except as documented, Denies dysphagia, Denies dizziness, Denies headache(s) and Denies hearing loss Cardiovascular: Cardiovascular: Reports no additional cardiovascular complaints, Denies chest pain, Denies pedal edema, Denies leg edema, Denies lightheadedness, Denies radiating jaw, neck or arm pain and Denies dyspnea Respiratory: Respiratory: Reports no additional respiratory complaints, Denies cough, Denies hemoptysis, Denies dyspnea and Denies wheezing Gastrointestinal: Gastrointestinal: Reports as per HPI, Reports no additional gastrointestinal complaints, Reports abdominal pain, Denies bloating, Denies change in bowel habits, Denies constipation, Denies dysphagia, Reports nausea and Denies vomiting Genitourinary: Genitourinary: Reports no additional male genitourinary complaints, Denies hematuria and Denies dysuria Musculoskeletal: Musculoskeletal: Reports no additional musculoskeletal complaints, Denies abnormal gait, Denies deformity, Denies joint swelling, Denies numbness and Denies tingling Integumentary/Breasts: Skin/Breast: Denies new lesions, Denies rash and Denies wounds Neurologic: Reports system reviewed and no additional complaints, except as documented, Denies abnormal gait, Denies dizziness, Denies headache(s), Denies numbness, Denies tingling and Denies weakness Psychiatric: Psychiatric: Reports no additional psychiatric complaints, Denies anxiety and Denies depression Endocrine: Endocrine: Denies fatigue [facility] Past Medical History Medical History CAD (coronary artery disease), autologous vein bypass graft Carpal tunnel syndrome of left wrist Cervical spine fracture After fall from roof; treated conservatively 2014 COPD (chronic obstructive pulmonary disease) Cubital tunnel syndrome on left Depression
--- NOTE | 2020-12-01 12:46 | PM.CNCAR ---
Assessment and Plan Assessment and plan (1) Preop cardiovascular exam: Code(s): Z01.810 - Encounter for preprocedural cardiovascular examination Status: Acute Assessment and Plan: Hold Eliquis which his last dose was yesterday so that would be cleared by tomorrow morning. No need to resume post op as he has not had PAF with Amiodarone. May hold Clopidogrel if surgeon so desires but would take 5 days to clear. Will need to continue Clopidogrel as soon as possible if held. May proceed to noncardiac surgery which is appendectomy as it is urgent surgery without further cardiac workup. He is optimized but needs to be on dual antiplatelets as soon as possible given recent coronary stenting. (2) MANNY on CPAP: Code(s): G47.33 - Obstructive sleep apnea (adult) (pediatric); Z99.89 - Dependence on other enabling machines and devices Status: Acute (3) CAD (coronary artery disease), autologous vein bypass graft: Code(s): I25.810 - Atherosclerosis of coronary artery bypass graft(s) without angina pectoris Status: Acute Assessment and Plan: Stable. On Dual antiplatelet agents. (4) PAF (paroxysmal atrial fibrillation): Code(s): I48.0 - Paroxysmal atrial fibrillation Status: Acute Assessment and Plan: In Sinus rhythm on Amiodarone. (5) Hypertension: Qualifiers: Hypertension type: essential hypertension Qualified Code(s): I10 - Essential (primary) hypertension Code(s): I10 - Essential (primary) hypertension Status: Acute Assessment and Plan: Stable. (6) Acute appendicitis: Qualifiers: Acute appendicitis type: with localized peritonitis Appendicitis abscess presence: without abscess Appendicitis gangrene presence: without gangrene Appendicitis perforation presence: without perforation Qualified Code(s): K35.30 - Acute appendicitis with localized peritonitis, without perforation or gangrene Code(s): K35.80 - Unspecified acute appendicitis Status: Acute Assessment and Plan: Management as per surgeon. History of Present Illness History of Present Illness Consult date/time: 12/01/20 12:46 Reason for consult: Preop risk stratification for noncardiac surgery. Patient is a 70 yr old man who is my regular cardiology patient who presented hospital due to abdominal pain. He was diagnosed with appendicitis and will need surgery. He has a history of CAD, CABG in [address] [facility] then subsequent stents to PL and PDA at [facility], dyslipidemia (intolerant of statins due to myalgia), hypertension, COPD, PAF, chronic diastolic heart failure, MANNY on CPAP. He presented to ED on 10/13/20 for chest pains and found to have NSTEMI. He was brought to ED. Originally EMS had thought it was a STEMI and that was called but found out by cath team that it was not. His troponins trending up 0.4 to 0.8 to 0.9. EKG shows no ST changes. He had cath with Dr. Rojas but unable to deliver stents and had PTCA of SVG graft at anastomosis. He continued to have symptoms and was transferred to [facility] per his request. Cardiovascular Procedures 10/14/20 Dr. Rojas cath: LAD occluded at its origin, Lcx to 2 small OM into PL and PDA, RCA has stent with significant stenosis but small vessel, HOLT to LAD patent, SVG to RCA occluded, SVG to OM with 2 significant lesions in mid shaft and anastomosis to OM; PTCA of anastomosis but unable to deliver stent. Waiter/Waitress First Class:: Cath (LAD occluded at origin, Ramus occluded prox, LCX mod diffuse plaquing, RCA mid stent patent, SVG to RCA occluded, SVG to Ramus and OM patent with mild plaquing; Ramus post anastomosis has 80% stenosis, HOLT to LAD patent.) - 08/25/2011 Echo/MUGA:: 10/14/20 Echo: EF 55-60%, mild LVH, diastolic dysfunction (E/e' 25), mod LAE. 12/01/19 EF 60-65%, mod LVH, diastolic dysfunction (E/e' 15), mod LAE, mod MAC. Echo (EF 55%, mod LVH, grade III-IV diastolic dysfunction (E/E' 23)
--- NOTE | 2020-12-01 15:21 | PCRCNOTE ---
Addendum entered by Raya Javier 12/01/20 15:23: Pt only wears his at home when he wants, he does not want to use ours. Tracie Romero PA-C aware Original Note: Pt only wears his at home when he wants, he does not want to use ours. Estela STEWART-C aware.
[2020-12-01] MEDS: HYDROcodone/acetaminophen (*CRX) 5-325 MG TABLET 1 TAB PO (20:28)
[2020-12-01] MEDS: ATORVASTATIN 40 MG TABLET 80 MG PO (20:28)
[2020-12-01] MEDS: LOSARTAN POTASSIUM 50 MG TABLET PO (20:28)
[2020-12-02] VITALS (7 sets, daily range): BP systolic 120–139; BP diastolic 55–79; PULSE 77–94; RESP 16–18; TEMP 36.2–36.6; O2SAT 96–99
[2020-12-02] MEDS: SODIUM CHLORIDE 0.9% IV 1,000 ML 100 ML IV CONT ×2 (02:25→13:39)
[2020-12-02 05:38] LABS: Hematocrit 34.2 % (42.0-52.0); Hemoglobin 10.9 g/dL (14.0-18.0); Mean Corpuscular HGB Conc 31.9 g/dl (32-36); Mean Corpuscular Volume 81.4 fl (80-100); Mean Platelet Volume 10.4 fl (7.4-10.4); Platelet Count Result 143 k/mm3 (150-375); Red Cell Distribution Width 14.6 % (11.5-14.5); White Blood Count 9.6 K/mm3 (4.5-10.0)
[2020-12-02 05:50] LABS: Anion Gap 3 mmol/L (8-16); Blood Urea Nitrogen 19 mg/dL (9-20); Calcium 8.1 mg/dL (8.4-10.2); Carbon Dioxide 30 mmol/L (22-30); Chloride 102 mmol/L (98-107); Estimated CRCL calculation 69 ml/min; Estimated Glomerular Filt Rate > 60; Glucose 70 mg/dL (75-110); Sodium 135 mmol/L (137-145)
[2020-12-02] MEDS: NITROGLYCERIN SL 0.4 MG TABLET SUBLINGUAL ×2 (07:05→08:41)
--- NOTE | 2020-12-02 08:44 | ECG_ITS ---
Measurements Intervals [place] Rate: 94 P: 31 NE: 213 QRS: -47 QRSD: 117 T: 47 QT: 375 QTc: 469 Interpretive Statements SINUS RHYTHM WITH FIRST DEGREE AV BLOCK LEFT ANTERIOR FASCICULAR BLOCK CANNOT RULE OUT SEPTAL INFARCT, AGE INDETERMINATE ABNORMAL ECG Electronically Signed On 12-02-2020 10:27:40 WOOD GRINDER by Luke Nick D.O.
[2020-12-02] MEDS: ISOSORBIDE MONONITRATE 60 MG TAB.ER.24H PO (09:10)
[2020-12-02] MEDS: PYRIDOXINE HCL 50 MG TABLET 100 MG PO (09:10)
[2020-12-02] MEDS: PANTOPRAZOLE SODIUM IV 40 MG VIAL IV PUSH ×2 (09:10→20:01)
[2020-12-02] MEDS: SPIRONOLACTONE 25 MG TABLET PO (09:10)
[2020-12-02] MEDS: carvediloL 6.25 MG TABLET PO ×2 (09:10→17:35)
--- NOTE | 2020-12-02 09:12 | PM.PNCARD ---
Progress Note: A&P Assessment and Plan (1) PAF (paroxysmal atrial fibrillation): Code(s): I48.0 - Paroxysmal atrial fibrillation Status: Acute Assessment and Plan: Last dose of Eliquis was 2 days ago. Eliquis on hold. In Sinus rhythm on Amiodarone. (2) Hypertension: Qualifiers: Hypertension type: essential hypertension Qualified Code(s): I10 - Essential (primary) hypertension Code(s): I10 - Essential (primary) hypertension Status: Acute Assessment and Plan: Stable. (3) Chest pain: Code(s): R07.9 - Chest pain, unspecified Status: Acute Assessment and Plan: Will continue with NTG SL prn in addition to Isosorbide mononitrate. EKG done this AM is OK. (4) CAD (coronary artery disease), autologous vein bypass graft: Code(s): I25.810 - Atherosclerosis of coronary artery bypass graft(s) without angina pectoris Status: Acute Assessment and Plan: Stable. On Dual antiplatelet agents. If considering surgery within next 5 days, would stop Clopidogrel and start Integrillin drip as a bridge to surgery given recent stenting. (5) Preop cardiovascular exam: Code(s): Z01.810 - Encounter for preprocedural cardiovascular examination Status: Acute Assessment and Plan: Hold Eliquis which his last dose was on 11/30/20. No need to resume post op as he has not had PAF with Amiodarone. May proceed to noncardiac surgery which is appendectomy as his coronary anatomy is optimized and if it is urgent surgery without further cardiac workup. As above ,would hold Clopidogrel and start Integrilin drip as a bridge. After surgery, may resume Clopidogrel. (6) MANNY on CPAP: Code(s): G47.33 - Obstructive sleep apnea (adult) (pediatric); Z99.89 - Dependence on other enabling machines and devices Status: Acute (7) Acute appendicitis: Qualifiers: Acute appendicitis type: with localized peritonitis Appendicitis abscess presence: without abscess Appendicitis gangrene presence: without gangrene Appendicitis perforation presence: without perforation Qualified Code(s): K35.30 - Acute appendicitis with localized peritonitis, without perforation or gangrene Code(s): K35.80 - Unspecified acute appendicitis Status: Inactive Assessment and Plan: Management as per surgeon. Subjective Date/time seen: 12/02/20 09:12 Patient has intermittent chest pains which is his usual pains that resolved with NTG SL but this is mild compared to his pain in RLQ. Denies sob. Exam Const: General: cooperative, healthy appearing and comfortable Resp: Auscultation: clear to auscultation bilaterally, no crackles, no rales, no rhonchi and no wheezes Cardio: Jugular venous distension: no JVD Rate: regular rate Rhythm: regular rhythm Heart sounds: no murmurs Peripheral pulses: posterior tibial pulses present GI: GI Palp: Yes abdominal tenderness and Yes Soft to palpation Neuro: General: oriented to person, oriented to place and oriented to time Extrem: Right lower extremity: no edema Left lower extremity: no edema Objective Data Vital Signs Vital Signs: Vital Signs - 24 hr 12/01/20 10:59 12/01/20 12:58 12/01/20 16:52 Temperature 97.4 F L 97.4 F L Pulse Rate 100 94 89 Respiratory Rate 18 18 Blood Pressure 127/73 110/60 Pulse Oximetry 96 99 12/01/20 17:27 12/01/20 19:25 12/01/20 23:38 Temperature 97.8 F 97.6 F Pulse Rate 90 86 79 Respiratory Rate 17 18 Blood Pressure 128/57 L 98/56 L Pulse Oximetry 96 98 12/02/20 05:53 12/02/20 09:10 Temperature 97.3 F L Pulse Rate 79 94 Respiratory Rate 18 Blood Pressure 125/55 L Pulse Oximetry 96 Intake/Output Intake/Output: Intake & Output 11/29/20 11/30/20 12/01/20 12/02/20 23:59 23:59 23:59 23:59 Intake Total 2600 1200 Output Total 650 750 Balance 1950 450 Meds/Results Medications: Active Medications Generic Name Dose Route Start Last A
[2020-12-02] MEDS: IBUPROFEN 400 MG TABLET 800 MG PO ×2 (12:35→20:01)
--- NOTE | 2020-12-02 14:03 | PM.IMPN ---
Progress Note: A&P Assessment and Plan (1) Acute appendicitis: Qualifiers: Acute appendicitis type: with localized peritonitis Appendicitis abscess presence: without abscess Appendicitis gangrene presence: without gangrene Appendicitis perforation presence: without perforation Qualified Code(s): K35.30 - Acute appendicitis with localized peritonitis, without perforation or gangrene Code(s): K35.80 - Unspecified acute appendicitis Status: Inactive Assessment and Plan: Patient presented with RLQ pain and nausea. CT abdomen/pelvis showed acute appendicitis with appendix containing phleboliths dilated up to 15 mm with subtle fat stranding, and no evidence of abscess or perforation. He has mild leukocytosis. He is afebrile. Pain currently 8/10. His revised cardiac risk index score is 3, indicating class IV risk. He is able to tolerate moderate activity. General surgery is managing; planning for transfer to [facility] for further surgical evaluation per patient request Continue IV Zosyn at this time Continue IV fluids; NS 100 ml/hr Full liquid diet Analgesics available as needed for pain (2) CAD (coronary artery disease), autologous vein bypass graft: Code(s): I25.810 - Atherosclerosis of coronary artery bypass graft(s) without angina pectoris Status: Acute Assessment and Plan: History of 4 vessel CABG in 1993 and total of 3 stents. Most recently, in October 2020 he had an acute MS and underwent cardiac catheterization and had 2 stents placed. He is established with carboy filler Dr. Alaniz at [facility]. He has a follow-up appointment scheduled for 12/06/2020. He has resumed his typical activities following his MS. He reports angina with exertion about 2 times per week. He had an episode of angina at rest today which was relieved following 2 doses of nitro. Cardiology following for surgical risk assessment and management of perioperative antiplatelet therapy; input is appreciated. Aspirin and plavix have been held today. Integrillin drip recommended as bridge to surgery but not initiated in light of transfer Continue losartan, Coreg, Imdur, atorvastatin, and spironolactone. SL Nitro as needed. (3) PAF (paroxysmal atrial fibrillation): Code(s): I48.0 - Paroxysmal atrial fibrillation Status: Acute Assessment and Plan: S/p radiofrequency ablation. Rate is controlled at this time. Continue carvedilol Eliquis is being held in anticipation of surgical intervention - last dose 11/30/20. (4) Diabetes: Code(s): E11.9 - Type 2 diabetes mellitus without complications Status: Acute Assessment and Plan: Last A1c October 2020 was 7.4. He is managed on an long-term insulin pump and has been consistent with this therapy for several years. Blood sugars well controlled at this time. Continue insulin pump. Monitor accuchecks ACHS and implement hypoglycemic protocol (5) Hypertension: Qualifiers: Hypertension type: essential hypertension Qualified Code(s): I10 - Essential (primary) hypertension Code(s): I10 - Essential (primary) hypertension Status: Acute Assessment and Plan: Blood pressure evaluated and is generally well controlled, especially given his pain. Last BP 125/55. Continue losartan and carvedilol Monitor blood pressure daily (6) MANNY on CPAP: Code(s): G47.33 - Obstructive sleep apnea (adult) (pediatric); Z99.89 - Dependence on other enabling machines and devices Status: Acute Assessment and Plan: He reports compliance with CPAP nightly. CPAP will be available while he is hospitalized; titrated to home settings. He declined use of CPAP while inpatient as he reports his MANNY is not severe Subjective Date/time seen: 12/02/20 14:03 Interval history: Date of service: 12/02/2020 Dinesh Lin is a 70 year old male with a histor
--- NOTE | 2020-12-02 14:49 | PM.TDS ---
Transfer Discharge Sum: Prov Provider Date of admission: 12/01/20 Primary care physician: Rafita Paulson MD Admitting clinician: Cezar Barreto MD Attending physician on admission: Cezar Barreto Consults: 12/01/20 Care Coordination Consult Routine Comment: Reason for Consult:: Other Consult to Physician Routine Comment: Consulting Provider: Jeffy Alvarenga call center specialist/MD group to consult: Cristian/ Hospitalist Group Reason for consultation: Medical care in perioperative period Has provider been notified: Yes Consult to Physician Routine Comment: spoke with office at 10:30 am DH/CHICKEN CLEANER Consulting Provider: Luke Nick call center specialist/MD group to consult: Cardiology Reason for consultation: Pre-operative cardiac risk assessment Has provider been notified: Yes Attending physician on discharge: Cezar Barreto Discharging clinician: Monica Dial Anticipated date of transfer: 12/02/20 Receiving physician/facility: [facility] in [place], [place] Admitting physician: Dr. Tomlin (Hospitalist) Consult: Dr. Valles (Surgeon) Consult: Dr. Alaniz ([facility] Consultant) DS: Admitting Diagnosis Admitting Diagnosis Admitting Diagnosis: Acute uncomplicated appendicitis Coronary artery disease s/p recent cardiac stent placement with dual anti-platelet therapy IDDM Paroxysmal atrial fibrillation on chronic anticoagulation Hypertension MANNY DS: Discharge Diagnosis Discharge Diagnosis (1) Acute appendicitis: Qualifiers: Acute appendicitis type: with localized peritonitis Appendicitis abscess presence: without abscess Appendicitis gangrene presence: without gangrene Appendicitis perforation presence: without perforation Qualified Code(s): K35.30 - Acute appendicitis with localized peritonitis, without perforation or gangrene Code(s): K35.80 - Unspecified acute appendicitis Status: Acute (2) CAD (coronary artery disease), autologous vein bypass graft: Code(s): I25.810 - Atherosclerosis of coronary artery bypass graft(s) without angina pectoris Status: Acute (3) Antiplatelet or antithrombotic long-term use: Code(s): Z79.02 - longterm (current) use of antithrombotics/antiplatelets Status: Acute (4) Anticoagulant long-term use: Code(s): Z79.01 - longterm (current) use of anticoagulants Status: Acute (5) PAF (paroxysmal atrial fibrillation): Code(s): I48.0 - Paroxysmal atrial fibrillation Status: Acute (6) MANNY on CPAP: Code(s): G47.33 - Obstructive sleep apnea (adult) (pediatric); Z99.89 - Dependence on other enabling machines and devices Status: Acute (7) Insulin dependent diabetes mellitus: Status: Acute (8) Hypertension: Qualifiers: Hypertension type: essential hypertension Qualified Code(s): I10 - Essential (primary) hypertension Code(s): I10 - Essential (primary) hypertension Status: Acute Transfer Discharge Sum: Med Medications Active and Home Medications: Home Medications apixaban 5 mg tablet 5 mg PO BID 11/24/19 [History Confirmed 12/01/20] cholecalciferol (vitamin D3) 25 mcg (1,000 unit) tablet 25 mcg PO DAILY 11/24/19 [History Confirmed 12/01/20] coenzyme Q10 100 mg capsule 100 mg PO DAILY 11/24/19 [History Confirmed 12/01/20] furosemide 40 mg tablet 20 mg PO QAM 11/24/19 [History Confirmed 12/01/20] magnesium oxide 400 mg PO HS 11/24/19 [History Confirmed 12/01/20] omega-3 fatty acids 1,000 mg capsule 2,000 mg PO BID 11/24/19 [History Confirmed 12/01/20] pantoprazole 40 mg tablet,delayed release 40 mg PO QAM 11/24/19 [History Confirmed 12/01/20] pyridoxine (vitamin B6) 50 mg capsule 100 mg PO DAILY 11/24/19 [History Confirmed 12/01/20] losartan 50 mg tablet 50 mg PO HS #30 tablet 10/11/20 [Rx Confirmed 12/01/20] aspirin 81 mg tablet,delayed release 81 mg PO DAILY 10/18/20 [History Confirmed 12/01/20] clopidogrel 75 mg tablet 75 mg PO DAILY 10/18/20 [History Confirmed 12/01/20] ator
--- NOTE | 2020-12-02 15:15 | PC.NURSE ---
Spoke with Kailee IQBAL at [facility] and gave report on the pt.
[2020-12-02] MEDS: LOSARTAN POTASSIUM 50 MG TABLET PO (20:01)
[2020-12-02] MEDS: ATORVASTATIN 40 MG TABLET 80 MG PO (20:01)
== END 2020-12-02 21:34 | disposition short-term general hospital (02) | DRG 372 ==
PROVIDERS: Physician Assistant; Admitting Provider Surgery; PCP Internal Medicine; Visit Provider Surgery
DX: K35.30 Acute appendicitis with localized peritonitis, without perforation or gangrene (principal); I25.810 Atherosclerosis of coronary artery bypass graft(s) without angina pectoris; I50.32 Chronic diastolic (congestive) heart failure; I11.0 Hypertensive heart disease with heart failure; I48.0 Paroxysmal atrial fibrillation; G47.33 Obstructive sleep apnea (adult) (pediatric); J44.9 Chronic obstructive pulmonary disease, unspecified; K21.9 Gastro-esophageal reflux disease without esophagitis; L30.9 Dermatitis, unspecified; E78.5 Hyperlipidemia, unspecified; E11.42 Type 2 diabetes mellitus with diabetic polyneuropathy; F32.9 Major depressive disorder, single episode, unspecified; K35.80 Unspecified acute appendicitis; Z79.01 Long term (current) use of anticoagulants; Z79.02 Long term (current) use of antithrombotics/antiplatelets; Z95.5 Presence of coronary angioplasty implant and graft; I25.2 Old myocardial infarction; Z98.42 Cataract extraction status, left eye; Z95.1 Presence of aortocoronary bypass graft; Z87.891 Personal history of nicotine dependence
CPT/HCPCS: 36415; 80048; 83735; 85025; 85027; 93005; 96361; 96365; 96375; 96376; A9270; C9113; G0378; G0379; J2270; J2543; J7030

== ENCOUNTER 2021-01-05 11:48 | Outpatient (CLI) | payer MEDICARE, SELFPAY ==
[2021-01-05 12:01] LABS: Add Urine Microscopic? NO; Appearance Urine Clear (Clear); Basophils Absolute Auto 0.04 K/mm3 (0.00-0.10); Basophils Percent Auto 0.4 % (0.0-1.0); Bilirubin Urine Negative (Negative); Blood Urine Negative (Negative); Color Urine Yellow (Yellow); Eosinophils Absolute Auto 0.25 K/mm3 (0.02-0.50); Eosinophils Percent Auto 2.6 % (1.0-6.0); Glucose Urine UA Negative (Negative); Hematocrit 40.8 % (37.0-46.0); Hemoglobin 13.3 g/dL (12.4-15.3); Immature Granulocyte Absolute 0.04 K/mm3 (0.00-0.00); Immature Granulocyte Percent A 0.4 % (0.0-0.0); Ketones Urine Negative (Negative); Leukocyte Esterase Ur Negative (Negative); Lymphocytes Absolute Auto 2.95 K/mm3 (1.10-4.50); Lymphocytes Percent Auto 30.1 % (18.0-42.0); Mean Corpuscular HGB Conc 32.6 g/dL (32.0-36.0); Mean Corpuscular Hemoglobin 26.7 pg (27.0-31.0); Mean Corpuscular Volume 81.9 fL (78.0-102.0); Mean Platelet Volume 10.3 fl (8.7-11.0); Monocytes Absolute Auto 0.73 K/mm3 (0.10-0.90); Monocytes Percent Auto 7.4 % (2.0-11.0); Neutrophils Absolute Auto 5.8 K/mm3 (1.7-7.2); Neutrophils Percent Auto 59.1 % (50.0-70.0); Nitrate Urine Negative (Negative); Platelet Count Result 170 K/mm3 (150-420); Protein Urine Negative (Negative); Red Blood Count 4.98 M/mm3 (4.70-6.10); Red Cell Distribution Width 15.3 % (11.6-14.4); Specific Grav Ur 1.025 (1.010-1.020); Urobilinogen Urine 0.2 mg/dL (0.2-1.0); White Blood Count 9.8 K/mm3 (4.8-10.8); pH Urine 6.5 (5.0-8.0)
[2021-01-05 12:19] LABS: BNP 99.5 pg/mL (0-100)
[2021-01-05 12:28] LABS: Alanine Aminotransferase 36 U/L (16-63); Albumin Level 3.5 g/dL (3.4-5.0); Alkaline Phosphatase 82 U/L (46-116); Anion Gap 8 mmol/L (8-16); Aspartate Amino Transferase 19 U/L (15-37); Bilirubin,Total 0.3 mg/dL (0.00-1.00); Blood Urea Nitrogen 29 mg/dL (7-18); CRP < 0.5 mg/dL (0.0-0.9); Calcium 9.1 mg/dL (8.5-10.1); Carbon Dioxide 28 mmol/L (21-32); Chloride 102 mmol/L (98-108); Creatine Kinase 186 U/L (39-308); Estimated Glomerular Filt Rate > 60; Ferritin 28 ng/mL (26-388); Glucose 178 mg/dL (70-99); Iron 43 ug/dL (65-175); Osmolality Calculated 295 mOsm/kg (285-295); Potassium 4.7 mmol/L (3.5-5.1); Sodium 138 mmol/L (136-145); Total Protein 7.8 g/dL (6.4-8.2); Troponin I 26.4 ng/L (0.00-60.4)
[2021-01-05 12:45] LABS: Percent Iron Saturation 13 % (12-57)
== END 2021-01-05 11:49 | disposition home or self-care (01) ==
LOC: CHSLAB 11:50
PROVIDERS: PCP Internal Medicine; Visit Provider Internal Medicine
DX: R07.9 Chest pain, unspecified (principal); D64.9 Anemia, unspecified; M13.0 Polyarthritis, unspecified; I50.9 Heart failure, unspecified
CPT/HCPCS: 36415; 80053; 81003; 82550; 82553; 82728; 83540; 83550; 83880; 84484; 85025; 86140

== ENCOUNTER 2021-02-16 22:00 | Emergency (ER) | payer MEDICARE, SELFPAY ==
--- NOTE | ~2021-02-16 | XR_ITS ---
EXAMINATION: XR chest 1V portable INDICATION: Shortness of breath and cough TECHNIQUE: Portable AP chest at 2251 hours COMPARISON: 11/30/2020 FINDINGS: There are patchy bilateral opacities of the lungs. No pleural effusion or pneumothorax is i dentified. The heart size is normal. Median sternotomy wires and mediastinal surgical clips are seen, likely from prior coronary artery bypass grafting. IMPRESSION: 1. Patchy bilateral opacities, consistent with atelectasis versus pneumonia. Reviewed, dictated and finalized at location A.
[2021-02-16 22:08] VITALS: BP 170/70; PULSE 105; RESP 19; TEMP 37.2; O2SAT 95
--- NOTE | 2021-02-16 22:23 | ED.GENADULT ---
HPI - General Adult General Chief complaint: Fever Stated complaint: tightness in chest, sore throat, trouble breathing Source: patient Mode of arrival: ambulatory Limitations: no limitations History of Present Illness HPI narrative: Dinesh is a 70M with a PMH of CAD, MANNY, DMII, Afib, and HTN that presented to the ER with a cough and shortness of breath. He has had nasal congestion, rhinorrhea, and sore throat for a few days. However, today he started having a deeper cough and congestion with chills and fatigue at home. No CP, N/V, lightheadedness or syncope. Related Data Home Medications Medication Instructions Recorded Confirmed apixaban 5 mg tablet 5 mg PO BID 11/24/19 02/16/21 cholecalciferol (vitamin D3) 25 25 mcg PO DAILY 11/24/19 02/16/21 mcg (1,000 unit) tablet coenzyme Q10 100 mg capsule 100 mg PO DAILY 11/24/19 02/16/21 furosemide 40 mg tablet 20 mg PO QAM 11/24/19 02/16/21 magnesium oxide 400 mg PO HS 11/24/19 02/16/21 omega-3 fatty acids 1,000 mg 2,000 mg PO BID 11/24/19 02/16/21 capsule pantoprazole 40 mg tablet,delayed 40 mg PO QAM 11/24/19 02/16/21 release pyridoxine (vitamin B6) 50 mg 100 mg PO DAILY 11/24/19 02/16/21 capsule aspirin 81 mg tablet,delayed 81 mg PO DAILY 10/18/20 02/16/21 release clopidogrel 75 mg tablet 75 mg PO DAILY 10/18/20 02/16/21 atorvastatin 80 mg PO HS 10/20/20 02/16/21 multivit with min-folic acid 2 tablet PO BID 10/20/20 02/16/21 isosorbide mononitrate 60 mg PO DAILY 11/30/20 02/16/21 spironolactone 25 mg PO DAILY 11/30/20 02/16/21 tramadol 50 mg PO BID PRN 11/30/20 02/16/21 carvedilol [Coreg] 6.25 mg PO BID 12/01/20 02/16/21 Allergies Allergy/AdvReac Type Severity Reaction Status Date / Time No Known Allergies Allergy Verified 12/01/20 04:05 Review of Systems Constitutional: Constitutional: Reports chills, Reports fatigue and Denies fever(s) Eyes: Eyes: Reports no additional eye complaints ENT: Reports as per HPI Cardiovascular: Cardiovascular: Reports no additional cardiovascular complaints Respiratory: Respiratory: Reports as per HPI Gastrointestinal: Gastrointestinal: Reports no additional gastrointestinal complaints Genitourinary: Genitourinary: Reports no additional male genitourinary complaints Musculoskeletal: Musculoskeletal: Reports no additional musculoskeletal complaints Integumentary/Breasts: Skin/Breast: Reports system reviewed and no additional complaints, except as docu Neurologic: Reports system reviewed and no additional complaints, except as documented Psychiatric: Psychiatric: Reports no additional psychiatric complaints Endocrine: Endocrine: Reports no additional endocrine complaints Hematologic/Lymphatic: Hematologic/Lymphatic: Reports no additional hematologic/lymphatic complaints Allergic/Immunologic: Allergic/Immunologic: Reports no additional allergic/immunologic complaints [facility] Past Medical History Medical History CAD (coronary artery disease), autologous vein bypass graft Carpal tunnel syndrome of left wrist Cervical spine fracture After fall from roof; treated conservatively 2014 COPD (chronic obstructive pulmonary disease) Cubital tunnel syndrome on left Depression Diabetes On insulin pump Dyslipidemia Eczema Essential hypertension GERD (gastroesophageal reflux disease) Kidney stones MANNY on CPAP Paroxysmal atrial fibrillation Peripheral neuropathy Subdural hematoma 2014; conservative management Surgical History Surgical History Cataract extraction status, left eye 2018 History of cardiac catheterization 2003 with 1 stent placed; 2019 with 2 stents History of cardiac radiofrequency ablation 2013 History of carpal tunnel release Left carpal tunnel release June 2020 History of lithotripsy ESWL x9 History of lumbar surgery 1977, 1993 S/P CABG x 4 1993 Family History Family H
[2021-02-16 22:42] LABS: Basophils Absolute Auto 0.02 K/mm3 (0.00-0.10); Basophils Percent Auto 0.3 % (0.0-1.0); Eosinophils Absolute Auto 0.19 K/mm3 (0.02-0.50); Eosinophils Percent Auto 2.9 % (1.0-6.0); Hematocrit 41.1 % (37.0-46.0); Hemoglobin 12.9 g/dL (12.4-15.3); Immature Granulocyte Absolute 0.02 K/mm3 (0.00-0.00); Immature Granulocyte Percent A 0.3 % (0.0-0.0); Lymphocytes Absolute Auto 2.05 K/mm3 (1.10-4.50); Lymphocytes Percent Auto 31.3 % (18.0-42.0); Mean Corpuscular HGB Conc 31.4 g/dL (32.0-36.0); Mean Corpuscular Hemoglobin 25.5 pg (27.0-31.0); Mean Corpuscular Volume 81.2 fL (78.0-102.0); Mean Platelet Volume 10.4 fl (8.7-11.0); Monocytes Absolute Auto 0.57 K/mm3 (0.10-0.90); Monocytes Percent Auto 8.7 % (2.0-11.0); Neutrophils Absolute Auto 3.7 K/mm3 (1.7-7.2); Neutrophils Percent Auto 56.5 % (50.0-70.0); Platelet Count Result 184 K/mm3 (150-420); Red Blood Count 5.06 M/mm3 (4.70-6.10); Red Cell Distribution Width 14.7 % (11.6-14.4); White Blood Count 6.6 K/mm3 (4.8-10.8)
[2021-02-16 22:54] LABS: Prothrombin Time 10.7 Seconds (9.50-12.10)
[2021-02-16 23:01] LABS: Alanine Aminotransferase 33 U/L (16-63); Albumin Level 3.6 g/dL (3.4-5.0); Alkaline Phosphatase 88 U/L (46-116); Anion Gap 5 mmol/L (8-16); Aspartate Amino Transferase 30 U/L (15-37); Bilirubin,Total 0.3 mg/dL (0.00-1.00); Blood Urea Nitrogen 24 mg/dL (7-18); Calcium 8.6 mg/dL (8.5-10.1); Carbon Dioxide 30 mmol/L (21-32); Chloride 100 mmol/L (98-108); Estimated CRCL calculation 45 ml/min; Estimated Glomerular Filt Rate 50; Glucose 250 mg/dL (70-99); Osmolality Calculated 292 mOsm/kg (285-295); Potassium 4.1 mmol/L (3.5-5.1); Sodium 135 mmol/L (136-145); Total Protein 8.1 g/dL (6.4-8.2)
[2021-02-16 23:03] LABS: Troponin I 166.5 ng/L (0.00-60.4)
--- NOTE | 2021-02-16 23:03 | ECG_ITS ---
Measurements Intervals [place] Rate: 100 P: -47 CT: 139 QRS: -51 QRSD: 109 T: 53 QT: 324 QTc: 419 Interpretive Statements SINUS TACHYCARDIA LEFT ANTERIOR FASCICULAR BLOCK CANNOT RULE OUT SEPTAL INFARCT, AGE INDETERMINATE BORDERLINE ST-T WAVE ABNORMALITY- HIGH LATERAL LEADS BASELINE ARTIFACT- I, II, III, AVR, AVL, AVF, V4-V5 ABNORMAL ECG Electronically Signed On 02-17-2021 7:25:54 CDT by Luke Nick D.O.
--- NOTE | 2021-02-16 23:16 | PC.NURSE ---
patient wants [facility]
[2021-02-16 23:20] LABS: BNP 204 pg/mL (0-100)
[2021-02-16 23:23] VITALS: BP 153/84; PULSE 104; RESP 20; O2SAT 93
[2021-02-16 23:27] LABS: SARS-CoV-2 RNA PCR Positive (Negative)
[2021-02-16 23:28] LABS: Influenza Control Valid (Valid)
--- NOTE | 2021-02-16 23:52 | PC.NURSE ---
called to [facility], waiting for hospitalist to call back
--- NOTE | 2021-02-17 00:18 | PC.NURSE ---
2300 oxygen applied 2350Oxygen removed, spo2 stable
[2021-02-17 00:20] VITALS: BP 152/80; PULSE 102; RESP 18; TEMP 37; O2SAT 95
== END 2021-02-17 00:52 | disposition short-term general hospital (02) ==
PROVIDERS: Emergency Provider Family Medicine; PCP Internal Medicine
DX: U07.1 COVID-19 (principal); J12.82 Pneumonia due to coronavirus disease 2019; I51.4 Myocarditis, unspecified; R06.02 Shortness of breath; I25.10 Atherosclerotic heart disease of native coronary artery without angina pectoris; J44.9 Chronic obstructive pulmonary disease, unspecified; E78.5 Hyperlipidemia, unspecified; E11.9 Type 2 diabetes mellitus without complications; Z79.4 Long term (current) use of insulin; K21.9 Gastro-esophageal reflux disease without esophagitis; Z87.891 Personal history of nicotine dependence
CPT/HCPCS: 71045; 80053; 83880; 84484; 85025; 85610; 87804; 93005; 99283; 99285; C9803; U0003; U0005

== ENCOUNTER 2021-05-09 09:58 | Outpatient (CLI) | payer MEDICARE, SELFPAY ==
--- NOTE | ~2021-05-09 | XR_ITS ---
EXAMINATION: XR hip LT min 2V DATE: 05/09/2021 10:24 INDICATION: Left hip pain. TECHNIQUE: 2 views of left hip were obtained. COMPARISON: None. FINDINGS: Bone alignment is normal. No fracture. There is mild left hip osteoarthritis. IMPRESSION: 1. Mild left hip osteoarthritis. Reviewed, dictated and finalized at location A.
[2021-05-09 11:23] LABS: Alanine Aminotransferase 35 U/L (16-63); Albumin Level 3.4 g/dL (3.4-5.0); Alkaline Phosphatase 77 U/L (46-116); Anion Gap 10 mmol/L (8-16); Aspartate Amino Transferase 32 U/L (15-37); Bilirubin,Total 0.5 mg/dL (0.00-1.00); Blood Urea Nitrogen 25 mg/dL (7-18); Calcium 8.8 mg/dL (8.5-10.1); Carbon Dioxide 29 mmol/L (21-32); Chloride 100 mmol/L (98-108); Estimated Glomerular Filt Rate > 60; Glucose 197 mg/dL (70-99); Osmolality Calculated 297 mOsm/kg (285-295); Potassium 4.7 mmol/L (3.5-5.1); Sodium 139 mmol/L (136-145)
== END 2021-05-09 09:59 | disposition home or self-care (01) ==
PROVIDERS: PCP Internal Medicine; Visit Provider Internal Medicine
DX: M48.00 Spinal stenosis, site unspecified (principal); M25.552 Pain in left hip
CPT/HCPCS: 36415; 73502; 80053

== ENCOUNTER 2021-05-18 07:23 | Outpatient (CLI) | payer MEDICARE, SELFPAY ==
--- NOTE | ~2021-05-18 | MR_ITS ---
. EXAMINATION: MR lumbar spine wo/w con DATE: 05/18/2021 09:17 INDICATION: Lumbar spinal stenosis. Left hip pain. TECHNIQUE: Magnetic resonance imaging (MRI) of the lumbar spine was performed without and with 20 mL MultiHance intravenous contrast. Sequences included sagittal T2-weighted FSE, sagittal T2-weighted FS FSE, and sagittal and axial T1-weighted FSE. Postcontrast sequences included axial T2-weighted FSE a nd axial and sagittal T1-weighted FS FSE. COMPARISON: Lumbar spine MRI 02/17/2010 FINDINGS: There is 3 mm retrolisthesis of L2 on L3. There is a chronic compression fracture of L2 wit h 2/5 loss of height. There is mildly decreased disc height at L1-L2 and moderately decreased disc he ight at L2-L3. There is severely decreased disc height at L5-S1 with interbody fusion. The distal spi nal cord signal intensity is normal. The conus medullaris is at T12-L1. The following disc levels are specifically discussed: L1-L2: The disc is bulging. There is mild left facet joint osteoarthritis. There is mild bilateral ne ural foraminal stenosis. There is mild central canal stenosis. L2-L3: The disc is bulging. There is moderate bilateral facet joint osteoarthritis. There is moderate bilateral neural foraminal stenosis. There is mild central canal stenosis. L3-L4: The disc is bulging. There is severe bilateral facet joint osteoarthritis. There is moderate b ilateral neural foraminal stenosis. There is mild central canal stenosis. L4-L5: The disc is bulging. There is severe bilateral facet joint osteoarthritis. There is severe leslie ateral neural foraminal stenosis. There is mild central canal stenosis with posterior decompression. L5-S1: The disc does not extend beyond the endplate margin. There is ankylosis of the facet joints wi th mild hypertrophy. There is moderate right and mild left neural foraminal stenosis. There is no castillo tral canal stenosis. IMPRESSION: 1. Severe lumbar spondylosis, mildly worsened from 02/17/2010. Reviewed, dictated and finalized at location A.
== END 2021-05-18 07:24 | disposition home or self-care (01) ==
LOC: CHSIMG 07:24
PROVIDERS: PCP Internal Medicine; Visit Provider Internal Medicine
DX: M48.00 Spinal stenosis, site unspecified (principal); M25.552 Pain in left hip
CPT/HCPCS: 72158; A9577

== ENCOUNTER 2021-06-15 08:16 | Outpatient (CLI) | payer MEDICARE, SELFPAY ==
[2021-06-15 08:52] LABS: Creatinine Urine 133.71 mg/dL (40-278); MALB Creatinine Ratio 9.7 mg/g (0-30); Microalbumin Urine Random < 13.0 mg/L
[2021-06-15 08:57] LABS: Hemoglobin A1C 7.3 % (<5.7)
[2021-06-15 09:11] LABS: Alanine Aminotransferase 34 U/L (16-63); Albumin Level 3.3 g/dL (3.4-5.0); Alkaline Phosphatase 71 U/L (46-116); Anion Gap 10 mmol/L (8-16); Aspartate Amino Transferase 26 U/L (15-37); Bilirubin,Total 0.5 mg/dL (0.00-1.00); Blood Urea Nitrogen 25 mg/dL (7-18); Calcium 8.6 mg/dL (8.5-10.1); Carbon Dioxide 29 mmol/L (21-32); Chloride 105 mmol/L (98-108); Estimated Glomerular Filt Rate > 60; Glucose 88 mg/dL (70-99); Osmolality Calculated 301 mOsm/kg (285-295); Potassium 4.5 mmol/L (3.5-5.1); Sodium 144 mmol/L (136-145); Total Protein 6.6 g/dL (6.4-8.2)
== END 2021-06-15 08:17 | disposition home or self-care (01) ==
LOC: CHSLAB 08:18
PROVIDERS: PCP Internal Medicine; Visit Provider Nurse Practitioner Family
DX: E11.9 Type 2 diabetes mellitus without complications (principal)
CPT/HCPCS: 36415; 80053; 82043; 83036

== ENCOUNTER 2021-07-06 08:40 | Outpatient (CLI) | payer MEDICARE, SELFPAY ==
[2021-07-06 09:42] LABS: Cholesterol 175 mg/dL (0-200); HDL Direct 36 mg/dL (40-60); LDL Cholesterol Calculated 113 mg/dL (<130); Triglycerides 129 mg/dL (0-150)
== END 2021-07-06 08:41 | disposition home or self-care (01) ==
LOC: CHSLAB 08:42
PROVIDERS: PCP Internal Medicine; Visit Provider Nuclear Medicine Nuclear Cardiology
DX: E78.5 Hyperlipidemia, unspecified (principal)
CPT/HCPCS: 36415; 80061

== ENCOUNTER 2021-09-16 08:57 | Outpatient (CLI) | payer MEDICARE, SELFPAY ==
[2021-09-16 09:22] LABS: Hemoglobin A1C 7.2 % (<5.7)
[2021-09-16 09:28] LABS: Creatinine Urine 175.19 mg/dL (40-278); MALB Creatinine Ratio 7.4 mg/g (0-30); Microalbumin Urine Random < 13.0 mg/L
[2021-09-16 10:13] LABS: Alanine Aminotransferase 35 U/L (16-63); Albumin Level 3.4 g/dL (3.4-5.0); Alkaline Phosphatase 73 U/L (46-116); Anion Gap 3 mmol/L (8-16); Aspartate Amino Transferase 18 U/L (15-37); Bilirubin,Total 0.4 mg/dL (0.00-1.00); Blood Urea Nitrogen 24 mg/dL (7-18); Calcium 8.8 mg/dL (8.5-10.1); Carbon Dioxide 33 mmol/L (21-32); Chloride 106 mmol/L (98-108); Cholesterol 156 mg/dL (0-200); Estimated Glomerular Filt Rate > 60; Free T4 Free Thyroxine 1.01 ng/dL (0.76-1.46); Glucose 90 mg/dL (70-99); HDL Direct 40 mg/dL (40-60); LDL Cholesterol Calculated 103 mg/dL (<130); Osmolality Calculated 298 mOsm/kg (285-295); Potassium 4.5 mmol/L (3.5-5.1); Sodium 142 mmol/L (136-145); Thyroid Stimulating Hormone 3.17 uIU/mL (0.36-3.74); Total Protein 6.7 g/dL (6.4-8.2); Triglycerides 67 mg/dL (0-150)
== END 2021-09-16 08:58 | disposition home or self-care (01) ==
LOC: CHSLAB 09:00
PROVIDERS: PCP Internal Medicine; Visit Provider Internal Medicine Endocrinology, Diabetes & Metabolism
DX: E11.9 Type 2 diabetes mellitus without complications (principal); E78.5 Hyperlipidemia, unspecified
CPT/HCPCS: 36415; 80053; 80061; 82043; 83036; 84439; 84443

== ENCOUNTER 2021-09-21 12:13 | Outpatient (CLI) | payer MEDICARE, SELFPAY ==
[2021-09-21 12:34] LABS: Basophils Absolute Auto 0.05 K/mm3 (0.00-0.10); Basophils Percent Auto 0.6 % (0.0-1.0); Eosinophils Percent Auto 3.6 % (1.0-6.0); Hemoglobin 11.6 g/dL (12.4-15.3); Immature Granulocyte Absolute 0.03 K/mm3 (0.00-0.00); Immature Granulocyte Percent A 0.4 % (0.0-0.0); Lymphocytes Percent Auto 31.1 % (18.0-42.0); Mean Corpuscular HGB Conc 31.4 g/dL (32.0-36.0); Mean Corpuscular Hemoglobin 25.4 pg (27.0-31.0); Mean Corpuscular Volume 81.1 fL (78.0-102.0); Mean Platelet Volume 10.1 fl (8.7-11.0); Monocytes Absolute Auto 0.77 K/mm3 (0.10-0.90); Monocytes Percent Auto 9.2 % (2.0-11.0); Neutrophils Absolute Auto 4.6 K/mm3 (1.7-7.2); Neutrophils Percent Auto 55.1 % (50.0-70.0); Platelet Count Result 178 K/mm3 (150-420); Red Blood Count 4.56 M/mm3 (4.70-6.10); Red Cell Distribution Width 15.5 % (11.6-14.4); White Blood Count 8.4 K/mm3 (4.8-10.8)
[2021-09-21 12:58] LABS: Alanine Aminotransferase 36 U/L (16-63); Albumin Level 3.3 g/dL (3.4-5.0); Alkaline Phosphatase 72 U/L (46-116); Anion Gap 4 mmol/L (8-16); Aspartate Amino Transferase 27 U/L (15-37); Bilirubin,Total 0.4 mg/dL (0.00-1.00); Blood Urea Nitrogen 28 mg/dL (7-18); Calcium 8.7 mg/dL (8.5-10.1); Carbon Dioxide 30 mmol/L (21-32); Chloride 103 mmol/L (98-108); Creatine Kinase 195 U/L (39-308); Estimated Glomerular Filt Rate > 60; Glucose 168 mg/dL (70-99); NT Pro B Type Natriuretic Pept 532 pg/mL (0-125); Osmolality Calculated 293 mOsm/kg (285-295); Potassium 4.5 mmol/L (3.5-5.1); Sodium 137 mmol/L (136-145)
[2021-09-21 13:01] LABS: Troponin I 1031.3 ng/L (0.00-60.4)
--- NOTE | 2021-09-21 13:29 | ED.GENADULT ---
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 He had an episode of chest pressure last night that radiated to his arms a little bit last night relieved with nitro. Before this he has had worsening chest chest discomfort with exertion for the last couple weeks. He went to see his PCP who did an EKG and thought he might have some ST changes. He did labs which showed a troponin of 1000. He currently denies any chest pressure/pain, SOB, and lightheadedness. Related Data Home Medications Medication Instructions Recorded Confirmed apixaban 5 mg tablet 5 mg PO BID 11/24/19 09/21/21 coenzyme Q10 100 mg capsule 100 mg PO DAILY 11/24/19 09/21/21 furosemide 40 mg tablet 20 mg PO QAM 11/24/19 09/21/21 magnesium oxide 400 mg PO HS 11/24/19 09/21/21 omega-3 fatty acids 1,000 mg 1,000 mg PO BID 11/24/19 09/21/21 capsule pantoprazole 40 mg tablet,delayed 40 mg PO QAM 11/24/19 09/21/21 release pyridoxine (vitamin B6) 50 mg 100 mg PO DAILY 11/24/19 09/21/21 capsule clopidogrel 75 mg tablet 75 mg PO DAILY 10/18/20 09/21/21 multivit with min-folic acid 2 tablet PO BID 10/20/20 09/21/21 isosorbide mononitrate 60 mg PO DAILY 11/30/20 09/21/21 spironolactone 25 mg PO DAILY 11/30/20 09/21/21 tramadol 50 mg PO BID PRN 11/30/20 09/21/21 carvedilol 6.25 mg PO BID 09/21/21 09/21/21 duloxetine 30 mg PO BID 09/21/21 09/21/21 insulin aspart U-100 [Novolog See Protocol SUBCUT QID 09/21/21 09/21/21 U-100 Insulin aspart] ranolazine 500 mg PO BID 09/21/21 09/21/21 Allergies Allergy/AdvReac Type Severity Reaction Status Date / Time No Known Allergies Allergy Verified 09/21/21 13:43 Review of Systems Constitutional: Constitutional: Reports no additional constitutional complaints Eyes: Eyes: Reports no additional eye complaints ENT: Reports system reviewed and no additional complaints, except as documented Cardiovascular: Cardiovascular: Reports as per HPI Respiratory: Respiratory: Reports no additional respiratory complaints Gastrointestinal: Gastrointestinal: Reports no additional gastrointestinal complaints Genitourinary: Genitourinary: Reports no additional male genitourinary complaints Musculoskeletal: Musculoskeletal: Reports no additional musculoskeletal complaints Integumentary/Breasts: Skin/Breast: Reports system reviewed and no additional complaints, except as docu Neurologic: Reports system reviewed and no additional complaints, except as documented Psychiatric: Psychiatric: Reports no additional psychiatric complaints Endocrine: Endocrine: Reports no additional endocrine complaints Hematologic/Lymphatic: Hematologic/Lymphatic: Reports no additional hematologic/lymphatic complaints Allergic/Immunologic: Allergic/Immunologic: Reports no additional allergic/immunologic complaints [facility] Past Medical History Medical History CAD (coronary artery disease), autologous vein bypass graft Carpal tunnel syndrome of left wrist Cervical spine fracture After fall from roof; treated conservatively 2014 COPD (chronic obstructive pulmonary disease) Cubital tunnel syndrome on left Depression Diabetes On insulin pump Dyslipidemia Eczema Essential hypertension GERD (gastroesophageal reflux disease) Kidney stones MANNY on CPAP Paroxysmal atrial fibrillation Peripheral neuropathy Subdural hematoma 2014; conservative management Surgical History Surgical History Cataract extraction status, left eye 2018 History of cardiac catheterization 2004 with 1 stent placed; 2019 with 2 stents History
--- NOTE | 2021-09-21 13:46 | ECG_ITS ---
Measurements Intervals [place] Rate: 81 P: 72 ND: 242 QRS: 23 QRSD: 141 T: 14 QT: 407 QTc: 474 Interpretive Statements SINUS RHYTHM WITH FIRST DEGREE AV BLOCK INTRAVENTRICULAR CONDUCTION DELAY ANTEROSEPTAL INFARCT, AGE INDETERMINATE BORDERLINE ST-T WAVE ABNORMALITY- INF/LAT LEADS ABNORMAL ECG Electronically Signed On 09-21-2021 13:53:32 BORING MACHINE OPERATOR HORIZONTAL by Luke Nick D.O.
[2021-09-24 05:34] LABS: SARS-CoV-2 IgG 3.44 Index (<1.00)
== END 2021-09-21 12:14 | disposition home or self-care (01) ==
PROVIDERS: PCP Internal Medicine; Visit Provider Internal Medicine
DX: R07.9 Chest pain, unspecified (principal); I25.10 Atherosclerotic heart disease of native coronary artery without angina pectoris; Z20.822 Contact with and (suspected) exposure to COVID-19; R06.00 Dyspnea, unspecified
CPT/HCPCS: 36415; 80053; 82550; 82553; 83880; 84484; 85025; 86769; 87426; 93005; 99285; C9803

== ENCOUNTER 2021-09-21 13:23 | Emergency (ER) | payer MEDICARE, SELFPAY ==
[2021-09-21] VITALS (7 sets, daily range): BP systolic 111–126; BP diastolic 58–85; PULSE 74–80; RESP 20; TEMP 36.7; O2SAT 96–98
[2021-09-21 14:49] LABS: SARS-CoV-2 Ag Negative (Negative)
== END 2021-09-21 17:05 | disposition short-term general hospital (02) ==
LOC: CHSED 13:25
PROVIDERS: Emergency Provider Family Medicine; PCP Internal Medicine
DX: R07.89 Other chest pain (principal); Z20.822 Contact with and (suspected) exposure to COVID-19; I25.10 Atherosclerotic heart disease of native coronary artery without angina pectoris; J44.9 Chronic obstructive pulmonary disease, unspecified; E11.9 Type 2 diabetes mellitus without complications; K21.9 Gastro-esophageal reflux disease without esophagitis; Z87.891 Personal history of nicotine dependence
CPT/HCPCS: 87426; 99285; C9803

== ENCOUNTER 2021-11-21 11:04 | Outpatient (CLI) | payer MEDICARE, SELFPAY ==
[2021-11-21 11:23] LABS: Basophils Absolute Auto 0.07 K/mm3 (0.00-0.10); Basophils Percent Auto 0.8 % (0.0-1.0); Eosinophils Absolute Auto 0.28 K/mm3 (0.02-0.50); Eosinophils Percent Auto 3.2 % (1.0-6.0); Hematocrit 35.5 % (37.0-46.0); Immature Granulocyte Absolute 0.03 K/mm3 (0.00-0.00); Immature Granulocyte Percent A 0.3 % (0.0-0.0); Immature Reticulocyte Fraction 19.5 % (2.0-16.52); Lymphocytes Absolute Auto 2.46 K/mm3 (1.10-4.50); Lymphocytes Percent Auto 28.5 % (18.0-42.0); Mean Corpuscular Volume 77.3 fL (78.0-102.0); Mean Platelet Volume 9.7 fl (8.7-11.0); Monocytes Absolute Auto 0.85 K/mm3 (0.10-0.90); Monocytes Percent Auto 9.9 % (2.0-11.0); Neutrophils Absolute Auto 4.9 K/mm3 (1.7-7.2); Neutrophils Percent Auto 57.3 % (50.0-70.0); Platelet Count Result 223 K/mm3 (150-420); Red Blood Count 4.59 M/mm3 (4.70-6.10); Red Cell Distribution Width 15.1 % (11.6-14.4); Reticulocyte Hemoglobin Conten 23.3 pg (28.0-35.0); Reticulocyte Percent 1.54 % (0.50-1.50); Reticulocytes Absolute 0.07 M/mm3 (0.02-0.1); White Blood Count 8.6 K/mm3 (4.8-10.8)
[2021-11-21 11:54] LABS: Alanine Aminotransferase 32 U/L (16-63); Albumin Level 3.7 g/dL (3.4-5.0); Alkaline Phosphatase 75 U/L (46-116); Anion Gap 8 mmol/L (8-16); Aspartate Amino Transferase 22 U/L (15-37); Bilirubin,Total 0.4 mg/dL (0.00-1.00); Blood Urea Nitrogen 23 mg/dL (7-18); Calcium 8.9 mg/dL (8.5-10.1); Carbon Dioxide 30 mmol/L (21-32); Chloride 102 mmol/L (98-108); Creatine Kinase 226 U/L (39-308); Estimated Glomerular Filt Rate > 60; Ferritin 23 ng/mL (26-388); Glucose 139 mg/dL (70-99); Iron 35 ug/dL (65-175); Lactate Dehydrogenase 205 U/L (85-227); NT Pro B Type Natriuretic Pept 479 pg/mL (0-125); Osmolality Calculated 295 mOsm/kg (285-295); Percent Iron Saturation 9 % (12-57); Potassium 4.4 mmol/L (3.5-5.1); Sodium 140 mmol/L (136-145); Total Protein 7.8 g/dL (6.4-8.2); Troponin I 20.2 ng/L (0.00-60.4)
[2021-11-24 08:56] LABS: Methylmalonic Acid 100 nmol/L (87-318)
[2021-11-24 12:04] LABS: Red Blood Cell Folate 790 ng/mL RBC (>280)
== END 2021-11-21 11:05 | disposition home or self-care (01) ==
LOC: CHSLAB 11:06
PROVIDERS: PCP Internal Medicine; Visit Provider Internal Medicine
DX: I50.9 Heart failure, unspecified (principal); D64.9 Anemia, unspecified; I25.10 Atherosclerotic heart disease of native coronary artery without angina pectoris
CPT/HCPCS: 36415; 80053; 82550; 82553; 82728; 82747; 83540; 83550; 83615; 83880; 83921; 84484; 85025; 85046

== ENCOUNTER 2021-11-28 10:13 | Outpatient (CLI) | payer MEDICARE, SELFPAY ==
[2021-11-28 10:24] LABS: Occult Blood Negative (Negative)
== END 2021-11-28 10:14 | disposition home or self-care (01) ==
LOC: CHSLAB 10:15
PROVIDERS: PCP Internal Medicine; Visit Provider Internal Medicine
DX: D64.9 Anemia, unspecified (principal)
CPT/HCPCS: 82272

== ENCOUNTER 2021-12-06 10:19 | Outpatient (CLI) | payer MEDICARE, SELFPAY ==
[2021-12-06 10:28] LABS: Basophils Absolute Auto 0.05 K/mm3 (0.00-0.10); Basophils Percent Auto 0.5 % (0.0-1.0); Eosinophils Absolute Auto 0.36 K/mm3 (0.02-0.50); Eosinophils Percent Auto 3.9 % (1.0-6.0); Hematocrit 36.2 % (37.0-46.0); Hemoglobin 10.9 g/dL (12.4-15.3); Immature Granulocyte Absolute 0.04 K/mm3 (0.00-0.00); Immature Granulocyte Percent A 0.4 % (0.0-0.0); Lymphocytes Absolute Auto 2.66 K/mm3 (1.10-4.50); Lymphocytes Percent Auto 28.7 % (18.0-42.0); Mean Corpuscular HGB Conc 30.1 g/dL (32.0-36.0); Mean Corpuscular Hemoglobin 23.4 pg (27.0-31.0); Mean Corpuscular Volume 77.8 fL (78.0-102.0); Mean Platelet Volume 9.6 fl (8.7-11.0); Monocytes Absolute Auto 0.98 K/mm3 (0.10-0.90); Monocytes Percent Auto 10.6 % (2.0-11.0); Neutrophils Absolute Auto 5.2 K/mm3 (1.7-7.2); Neutrophils Percent Auto 55.9 % (50.0-70.0); Platelet Count Result 216 K/mm3 (150-420); Red Blood Count 4.65 M/mm3 (4.70-6.10); Red Cell Distribution Width 16.9 % (11.6-14.4); White Blood Count 9.3 K/mm3 (4.8-10.8)
[2021-12-06 11:05] LABS: Alanine Aminotransferase 36 U/L (16-63); Albumin Level 3.6 g/dL (3.4-5.0); Alkaline Phosphatase 78 U/L (46-116); Anion Gap 9 mmol/L (8-16); Aspartate Amino Transferase 30 U/L (15-37); Bilirubin,Total 0.3 mg/dL (0.00-1.00); Blood Urea Nitrogen 28 mg/dL (7-18); Calcium 8.7 mg/dL (8.5-10.1); Carbon Dioxide 26 mmol/L (21-32); Chloride 104 mmol/L (98-108); Estimated Glomerular Filt Rate > 60; Glucose 169 mg/dL (70-99); NT Pro B Type Natriuretic Pept 648 pg/mL (0-125); Osmolality Calculated 297 mOsm/kg (285-295); Potassium 4.4 mmol/L (3.5-5.1); Sodium 139 mmol/L (136-145); Total Protein 7.1 g/dL (6.4-8.2)
== END 2021-12-06 10:20 | disposition home or self-care (01) ==
LOC: CHSLAB 10:20
PROVIDERS: PCP Internal Medicine; Visit Provider Internal Medicine
DX: I50.9 Heart failure, unspecified (principal)
CPT/HCPCS: 36415; 80053; 83880; 85025

== ENCOUNTER 2021-12-09 12:43 | Outpatient (CLI) | payer MEDICARE, SELFPAY ==
[2021-12-09 13:04] LABS: Occult Blood Negative (Negative)
[2021-12-09 13:04] LABS: Occult Blood Negative (Negative)
== END 2021-12-09 12:44 | disposition home or self-care (01) ==
LOC: CHSLAB 12:45
PROVIDERS: PCP Internal Medicine; Visit Provider Internal Medicine
DX: D64.9 Anemia, unspecified (principal)
CPT/HCPCS: 82272

== ENCOUNTER 2021-12-13 08:34 | Outpatient (CLI) | payer MEDICARE, SELFPAY ==
[2021-12-13 08:49] VITALS: BMI 29.5
[2021-12-13 08:51] VITALS: BP 125/70; PULSE 78; RESP 14; TEMP 36.4; O2SAT 98
--- NOTE | 2021-12-13 11:00 | PC.NURSE ---
Patient here for IV Venofer infusion. Education on med given. No concerns. IV Venofer administered- SEE MAR. Tolerated well. Safe exit of hospital.
== END 2021-12-13 08:35 | disposition home or self-care (01) ==
LOC: CHSTREATRM 08:36
PROVIDERS: PCP Internal Medicine; Visit Provider Internal Medicine
DX: D50.9 Iron deficiency anemia, unspecified (principal)
CPT/HCPCS: 96365; 96366; J1756; J7050

== ENCOUNTER 2021-12-20 10:14 | Emergency (ER) | payer MEDICARE, SELFPAY ==
[2021-12-20] VITALS (7 sets, daily range): BP systolic 121–142; BP diastolic 66–73; PULSE 73–93; RESP 20–22; TEMP 35.5; O2SAT 95–98
--- NOTE | ~2021-12-20 | CT_ITS ---
EXAMINATION: CTA chest PE protocol EXAM DATE: 12/20/2021 12:18 INDICATION: Dyspnea, chest pressure x 1day, neg COVID test today. TECHNIQUE: Spiral CTA of the chest (pulmonary arteries) was performed with 100 cc Omnipaque 350 intr avenous contrast injection. Images were acquired during the pulmonary arterial phase. Coronal maxi mum intensity projection 3D-reconstructions were created by the technologist on dedicated workstation . Axial, coronal and sagittal reformatted images were reviewed. The dose-length product (DLP) for t his examination was 905.15 mGy-cm. The exposure was tailored according to patient size (auto mA exp osure control), and iterative reconstruction (ASIR) was used as additional dose reduction technique. Correlation is made to noncontrast CT abdomen pelvis 11/30/2020. FINDINGS: Pulmonary arteries are well opacified and without intraluminal filling defects. No thora cic aortic dissection. Sternotomy wires, surgical changes from bypass graft there are calcifications along the posterior and inferior aspect of the pericardium, calcific pericarditis. There is concave shape to the right ventricular wall anteriorly, could indicate possibility of constrictive pericardit is. Small to moderate left, small right pleural effusions. There is dependent subsegmental atelectasis. M ild intralobular septal thickening, possible mild pulmonary edema. The lungs are otherwise clear. C holecystectomy clips. Splenic granulomata. There is thoracic spondylosis without osteoblastic or ost eolytic lesions identified. IMPRESSION: 1. No pulmonary emboli. 2. Small to moderate left, small right pleural effusions. Possible mild pulmonary edema. 3. Calcific pericarditis, and given shape of right ventricle possible constrictive pericarditis. Reviewed, dictated and finalized at location B. DER TIER IMPRESSION: 1. No pulmonary emboli. 2. Small to moderate left, small right pleural effusions. Possible mild pulmon deondre edema. 3. Calcific pericarditis, and given shape of right ventricle possible constric tive pericarditis.
--- NOTE | 2021-12-20 10:15 | ECG_ITS ---
Measurements Intervals [place] Rate: 84 P: 60 MN: 220 QRS: 84 QRSD: 140 T: -68 QT: 388 QTc: 461 Interpretive Statements SINUS RHYTHM WITH FIRST DEGREE AV BLOCK INTRAVENTRICULAR CONDUCTION DELAY ANTEROSEPTAL INFARCT, AGE INDETERMINATE CONSIDER HIGH LATERAL INFARCT, AGE INDETERMINATE ST-T WAVE ABNORMALITY IN INFERIOR LEADS- CONSIDER ISCHEMIA BASELINE WANDER- II, III, V4-V6 ABNORMAL ECG Electronically Signed On 12-20-2021 12:02:28 STRATEGIC PLANNER by Luke Nick D.O.
--- NOTE | 2021-12-20 10:15 | ED.CHESTPAIN ---
HPI - Chest Pain General Chief Complaint: Chest Pain Stated Complaint: SOB/Chest pain Time Seen by Provider: 12/20/21 10:15 Source: patient Mode of arrival: ambulatory Limitations: no limitations History of Present Illness HPI narrative: 71-year-old man with a history of COPD, coronary artery disease, type 1 diabetes comes to the ER complaining of shortness of breath and chest pressure which is been present since yesterday. Patient states that it feels like when he had pneumonia in the past but he has had no cough, fever or sputum production. He denies sick exposures. Said no syncope, fever, cough or cold symptoms, vomiting, nausea, diarrhea, abdominal pain. Patient states that he had a stent 2 months ago. MD complaint: other ( chest pressure/short of breath) Pertinent past history: coronary artery disease Onset (ago): day(s) (1) Timing of current episode: constant and still present Prior episodes: Yes Onset: during rest Pain location: substernal Pain radiation: none Severity: moderate Quality: other ( pressure) Relieving factors: nothing Exacerbating factors: nothing Treatment prior to arrival: none Risk Factors Coronary artery disease risk factors: diabetes, hyperlipidemia and hypertension Related Data Home Medications Medication Instructions Recorded Confirmed apixaban 5 mg tablet 5 mg PO BID 11/24/19 12/20/21 coenzyme Q10 100 mg capsule 100 mg PO DAILY 11/24/19 12/20/21 furosemide 40 mg tablet 20 mg PO QAM 11/24/19 12/20/21 magnesium oxide 400 mg PO HS 11/24/19 12/20/21 omega-3 fatty acids 1,000 mg 1,000 mg PO BID 11/24/19 12/20/21 capsule pantoprazole 40 mg tablet,delayed 40 mg PO QAM 11/24/19 12/20/21 release pyridoxine (vitamin B6) 50 mg 100 mg PO DAILY 11/24/19 12/20/21 capsule clopidogrel 75 mg tablet 75 mg PO DAILY 10/18/20 12/20/21 multivit with min-folic acid 2 tablet PO BID 10/20/20 12/20/21 spironolactone 25 mg PO DAILY 11/30/20 12/20/21 tramadol 50 mg PO BID PRN 11/30/20 12/20/21 carvedilol 6.25 mg PO BID 09/21/21 12/20/21 insulin aspart U-100 [Novolog See Protocol SUBCUT QID 09/21/21 12/20/21 U-100 Insulin aspart] ranolazine 500 mg PO BID 09/21/21 12/20/21 Allergies Allergy/AdvReac Type Severity Reaction Status Date / Time No Known Allergies Allergy Verified 12/20/21 10:22 Review of Systems Review of Systems: All systems reviewed & are unremarkable except as noted in HPI and below Constitutional: Constitutional: Denies chills and Denies fever(s) ENT: Denies nasal congestion and Denies sore throat Cardiovascular: Cardiovascular: Reports chest pain, Denies rapid heart rate and Denies radiating jaw, neck or arm pain Respiratory: Respiratory: Denies cough, Reports dyspnea and Denies wheezing Gastrointestinal: Gastrointestinal: Denies abdominal pain, Denies diarrhea, Denies nausea and Denies vomiting Comments: Denies black and bloody stools. Genitourinary: Genitourinary: Denies hematuria and Denies dysuria Integumentary/Breasts: Skin/Breast: Denies pruritus, Denies erythema and Denies rash Neurologic: Denies vertigo, Denies dizziness and Denies syncope Hematologic/Lymphatic: Hematologic/Lymphatic: Reports easy bruising PMFSH Past Medical History Medical History CAD (coronary artery disease), autologous vein bypass graft Carpal tunnel syndrome of left wrist Cervical spine fracture After fall from roof; treated conservatively 2014 COPD (chronic obstructive pulmonary disease) Cubital tunnel syndrome on left Depression Diabetes On insulin pump Dyslipidemia Eczema Essential hypertension GERD (gastroesophageal reflux disease) Kidney stones MANNY on CPAP Paroxysmal atrial fibrillation Peripheral neuropathy Subdural hematoma 2014; conservative management Surgical History Surgical History Cataract extraction status, left eye 2018 History of cardiac catheterization
[2021-12-20] MEDS: ASPIRIN 81 MG CHEWABLE TABLET 324 MG PO (10:39)
[2021-12-20 10:42] LABS: Basophils Absolute Auto 0.03 K/mm3 (0.00-0.10); Basophils Percent Auto 0.4 % (0.0-1.0); Eosinophils Absolute Auto 0.23 K/mm3 (0.02-0.50); Eosinophils Percent Auto 2.9 % (1.0-6.0); Hematocrit 35.5 % (37.0-46.0); Hemoglobin 10.8 g/dL (12.4-15.3); Immature Granulocyte Absolute 0.02 K/mm3 (0.00-0.00); Immature Granulocyte Percent A 0.3 % (0.0-0.0); Lymphocytes Absolute Auto 2.04 K/mm3 (1.10-4.50); Lymphocytes Percent Auto 26.1 % (18.0-42.0); Mean Corpuscular HGB Conc 30.4 g/dL (32.0-36.0); Mean Corpuscular Hemoglobin 24.1 pg (27.0-31.0); Mean Corpuscular Volume 79.2 fL (78.0-102.0); Mean Platelet Volume 10.6 fl (8.7-11.0); Monocytes Percent Auto 10.2 % (2.0-11.0); Neutrophils Absolute Auto 4.7 K/mm3 (1.7-7.2); Neutrophils Percent Auto 60.1 % (50.0-70.0); Platelet Count Result 204 K/mm3 (150-420); Red Blood Count 4.48 M/mm3 (4.70-6.10); White Blood Count 7.8 K/mm3 (4.8-10.8)
[2021-12-20] MEDS: NITROGLYCERIN SL 0.4 MG TABLET SUBLINGUAL ×2 (10:43→11:19)
[2021-12-20 11:06] LABS: D Dimer 0.72 mg/L (0.19-0.50)
--- NOTE | 2021-12-20 11:06 | PC.NURSE ---
Lab called with d-dimer of 0.72. Dr. Moreno notified.
[2021-12-20 11:08] LABS: Alanine Aminotransferase 33 U/L (16-63); Albumin Level 3.3 g/dL (3.4-5.0); Alkaline Phosphatase 69 U/L (46-116); Anion Gap 11 mmol/L (8-16); Aspartate Amino Transferase 24 U/L (15-37); Bilirubin,Total 0.6 mg/dL (0.00-1.00); Blood Urea Nitrogen 27 mg/dL (7-18); Calcium 8.5 mg/dL (8.5-10.1); Carbon Dioxide 26 mmol/L (21-32); Chloride 103 mmol/L (98-108); Estimated CRCL calculation 58 ml/min; Estimated Glomerular Filt Rate > 60; Glucose 140 mg/dL (70-99); NT Pro B Type Natriuretic Pept 838 pg/mL (0-125); Osmolality Calculated 297 mOsm/kg (285-295); Potassium 4.2 mmol/L (3.5-5.1); Sodium 140 mmol/L (136-145); Total Protein 7.2 g/dL (6.4-8.2); Troponin I 57.5 ng/L (0.00-60.4)
[2021-12-20 11:26] LABS: SARS-CoV-2 RNA PCR Negative (Negative)
--- NOTE | 2021-12-20 12:55 | PC.NURSE ---
Pt provided a lunch tray. Aware waiting for CT results and repeat Trop.
[2021-12-20 13:28] LABS: Add Urine Microscopic? YES; Appearance Urine Clear (Clear); Bilirubin Urine Negative (Negative); Blood Urine Negative (Negative); Color Urine Light Yellow (Yellow); Glucose Urine UA 3+ (Negative); Ketones Urine Negative (Negative); Leukocyte Esterase Ur Negative LEU/UL (Negative); Nitrate Urine Negative (Negative); Protein Urine Negative (Negative); Urobilinogen Urine 0.2 mg/dL (0.2-1.0); pH Urine 5.5 (5.0-8.0)
[2021-12-20 13:32] LABS: RBC Urine None seen /hpf (0-2); WBC Urine None seen /hpf (0-3)
[2021-12-20 13:33] LABS: Bacteria Urine None seen /hpf
[2021-12-20 14:10] LABS: Troponin I 52.8 ng/L (0.00-60.4)
== END 2021-12-20 14:30 | disposition home or self-care (01) ==
PROVIDERS: Emergency Provider Emergency Medicine; PCP Internal Medicine
DX: R06.00 Dyspnea, unspecified (principal); J90 Pleural effusion, not elsewhere classified; Z20.822 Contact with and (suspected) exposure to COVID-19; I25.10 Atherosclerotic heart disease of native coronary artery without angina pectoris; J44.9 Chronic obstructive pulmonary disease, unspecified; E11.9 Type 2 diabetes mellitus without complications; E78.5 Hyperlipidemia, unspecified; I10 Essential (primary) hypertension; K21.9 Gastro-esophageal reflux disease without esophagitis; Z87.891 Personal history of nicotine dependence
CPT/HCPCS: 36415; 71275; 80053; 81001; 83880; 84484; 85025; 85380; 93005; 99284; A9270; C9803; Q9967; U0003; U0005

== ENCOUNTER 2022-01-04 09:30 | Outpatient (CLI) | payer MEDICARE, SELFPAY ==
[2022-01-04 09:43] LABS: Basophils Absolute Auto 0.04 K/mm3 (0.00-0.10); Basophils Percent Auto 0.5 % (0.0-1.0); Eosinophils Absolute Auto 0.31 K/mm3 (0.02-0.50); Eosinophils Percent Auto 3.8 % (1.0-6.0); Hematocrit 41.7 % (37.0-46.0); Hemoglobin 12.8 g/dL (12.4-15.3); Immature Granulocyte Absolute 0.02 K/mm3 (0.00-0.00); Immature Granulocyte Percent A 0.2 % (0.0-0.0); Lymphocytes Absolute Auto 2.56 K/mm3 (1.10-4.50); Lymphocytes Percent Auto 31.1 % (18.0-42.0); Mean Corpuscular HGB Conc 30.7 g/dL (32.0-36.0); Mean Corpuscular Hemoglobin 24.2 pg (27.0-31.0); Mean Corpuscular Volume 78.7 fL (78.0-102.0); Mean Platelet Volume 10.3 fl (8.7-11.0); Monocytes Absolute Auto 0.91 K/mm3 (0.10-0.90); Neutrophils Absolute Auto 4.4 K/mm3 (1.7-7.2); Neutrophils Percent Auto 53.4 % (50.0-70.0); Platelet Count Result 230 K/mm3 (150-420); White Blood Count 8.2 K/mm3 (4.8-10.8)
[2022-01-04 10:24] LABS: Alanine Aminotransferase 40 U/L (16-63); Albumin Level 3.6 g/dL (3.4-5.0); Alkaline Phosphatase 77 U/L (46-116); Anion Gap 10 mmol/L (8-16); Aspartate Amino Transferase 28 U/L (15-37); Bilirubin,Total 0.4 mg/dL (0.00-1.00); Blood Urea Nitrogen 29 mg/dL (7-18); Calcium 8.9 mg/dL (8.5-10.1); Carbon Dioxide 27 mmol/L (21-32); Chloride 104 mmol/L (98-108); Estimated Glomerular Filt Rate 55; Glucose 108 mg/dL (70-99); Magnesium 2.2 mg/dL (1.8-2.4); NT Pro B Type Natriuretic Pept 422 pg/mL (0-125); Osmolality Calculated 298 mOsm/kg (285-295); Potassium 4.9 mmol/L (3.5-5.1); Sodium 141 mmol/L (136-145); Total Protein 7.4 g/dL (6.4-8.2)
== END 2022-01-04 09:31 | disposition home or self-care (01) ==
LOC: CHSLAB 09:32
PROVIDERS: PCP Internal Medicine; Visit Provider Internal Medicine
DX: D64.9 Anemia, unspecified (principal); I50.9 Heart failure, unspecified
CPT/HCPCS: 36415; 80053; 83735; 83880; 85025

== ENCOUNTER 2022-01-10 07:24 | Outpatient (CLI) | payer MEDICARE, SELFPAY ==
[2022-01-10 07:58] LABS: Creatinine Urine 114.24 mg/dL (40-278); MALB Creatinine Ratio 11.3 mg/g (0-30); Microalbumin Urine Random < 13.0 mg/L
[2022-01-10 07:59] LABS: Hemoglobin A1C 6.6 % (<5.7)
[2022-01-10 09:15] LABS: Alanine Aminotransferase 39 U/L (16-63); Albumin Level 3.6 g/dL (3.4-5.0); Alkaline Phosphatase 79 U/L (46-116); Anion Gap 10 mmol/L (8-16); Aspartate Amino Transferase 22 U/L (15-37); Bilirubin,Total 0.3 mg/dL (0.00-1.00); Blood Urea Nitrogen 35 mg/dL (7-18); Calcium 8.9 mg/dL (8.5-10.1); Carbon Dioxide 26 mmol/L (21-32); Chloride 105 mmol/L (98-108); Cholesterol 167 mg/dL (0-200); Estimated Glomerular Filt Rate 53; Free T4 Free Thyroxine 1.04 ng/dL (0.76-1.46); Glucose 149 mg/dL (70-99); HDL Direct 34 mg/dL (40-60); LDL Cholesterol Calculated 107 mg/dL (<130); Osmolality Calculated 303 mOsm/kg (285-295); Potassium 4.6 mmol/L (3.5-5.1); Sodium 141 mmol/L (136-145); Thyroid Stimulating Hormone 3.94 uIU/mL (0.36-3.74); Total Protein 7.3 g/dL (6.4-8.2); Triglycerides 130 mg/dL (0-150)
[2022-01-12 12:26] LABS: NT Pro B Type Natriuretic Pept 413 pg/mL (0-125)
== END 2022-01-10 07:25 | disposition home or self-care (01) ==
LOC: CHSLAB 07:26
PROVIDERS: PCP Internal Medicine; Visit Provider Internal Medicine Endocrinology, Diabetes & Metabolism
DX: E78.5 Hyperlipidemia, unspecified (principal); E11.9 Type 2 diabetes mellitus without complications; R06.00 Dyspnea, unspecified
CPT/HCPCS: 36415; 80053; 80061; 82043; 83036; 83880; 84439; 84443

== ENCOUNTER → 2022-01-17 08:32 | Outpatient (CLI) | payer MEDICARE, SELFPAY ==
--- NOTE | ~2022-01-17 | XR_ITS ---
EXAMINATION: XR knee LT 2V EXAM DATE: 01/17/2022 08:54 INDICATION: Left knee pain. TECHNIQUE: Frontal and lateral projections of the left knee. Comparison is made to prior examination from 12/25/2014. FINDINGS: There is small left knee joint effusion. There is mild primary osteoarthritis, mild progre ssion compared to 2015. There are surgical clips probably saphenous venous harvest. Scattered arteria l sclerotic disease. There are no acute fractures identified. There is interval development of faint meniscal chondrocalcinosis. Chondrocalcinosis can be an age related finding, but with other possible etiologies including CPPD, parathyroid disorders, hemochromatosis, gout. IMPRESSION: 1. Small left knee joint effusion. 2. Mild osteoarthritis. 3. Chondrocalcinosis. Reviewed, dictated and finalized at location A. LANCER
== END ==
PROVIDERS: PCP Internal Medicine; Visit Provider Nurse Practitioner Adult Health
DX: M17.12 Unilateral primary osteoarthritis, left knee (principal); M25.462 Effusion, left knee
CPT/HCPCS: 73560

== ENCOUNTER 2022-02-13 09:53 | Outpatient (CLI) | payer MEDICARE, SELFPAY ==
[2022-02-13 10:05] LABS: Basophils Absolute Auto 0.04 K/mm3 (0.00-0.10); Basophils Percent Auto 0.4 % (0.0-1.0); Eosinophils Absolute Auto 0.11 K/mm3 (0.02-0.50); Hematocrit 46.6 % (37.0-46.0); Hemoglobin 14.8 g/dL (12.4-15.3); Immature Granulocyte Absolute 0.08 K/mm3 (0.00-0.00); Immature Granulocyte Percent A 0.7 % (0.0-0.0); Lymphocytes Absolute Auto 2.88 K/mm3 (1.10-4.50); Lymphocytes Percent Auto 26.2 % (18.0-42.0); Mean Corpuscular HGB Conc 31.8 g/dL (32.0-36.0); Mean Corpuscular Hemoglobin 24.9 pg (27.0-31.0); Mean Corpuscular Volume 78.5 fL (78.0-102.0); Monocytes Absolute Auto 0.91 K/mm3 (0.10-0.90); Monocytes Percent Auto 8.3 % (2.0-11.0); Neutrophils Percent Auto 63.4 % (50.0-70.0); Platelet Count Result 217 K/mm3 (150-420); Red Blood Count 5.94 M/mm3 (4.70-6.10); Red Cell Distribution Width 20.3 % (11.6-14.4)
[2022-02-13 10:58] LABS: Alanine Aminotransferase 35 U/L (16-63); Albumin Level 3.6 g/dL (3.4-5.0); Alkaline Phosphatase 82 U/L (46-116); Anion Gap 10 mmol/L (8-16); Aspartate Amino Transferase 19 U/L (15-37); Bilirubin,Total 0.4 mg/dL (0.00-1.00); Blood Urea Nitrogen 34 mg/dL (7-18); Calcium 8.7 mg/dL (8.5-10.1); Carbon Dioxide 25 mmol/L (21-32); Chloride 104 mmol/L (98-108); Estimated Glomerular Filt Rate > 60; Glucose 170 mg/dL (70-99); Magnesium 2.2 mg/dL (1.8-2.4); NT Pro B Type Natriuretic Pept 749 pg/mL (0-125); Osmolality Calculated 299 mOsm/kg (285-295); Potassium 4.4 mmol/L (3.5-5.1); Sodium 139 mmol/L (136-145); Total Protein 7.2 g/dL (6.4-8.2)
== END 2022-02-13 09:54 | disposition home or self-care (01) ==
LOC: CHSLAB 09:54
PROVIDERS: PCP Internal Medicine; Visit Provider Internal Medicine
DX: I50.9 Heart failure, unspecified (principal)
CPT/HCPCS: 36415; 80053; 83735; 83880; 85025

== ENCOUNTER 2022-05-02 08:35 | Outpatient (CLI) | payer MEDICARE, SELFPAY ==
[2022-05-02 09:13] LABS: Creatinine Urine 189.04 mg/dL (40-278); Microalbumin Urine Random 56.9 mg/L
[2022-05-02 09:15] LABS: Hemoglobin A1C 6.4 % (<5.7)
[2022-05-02 09:44] LABS: Alanine Aminotransferase 41 U/L (16-63); Albumin Level 3.4 g/dL (3.4-5.0); Alkaline Phosphatase 81 U/L (46-116); Anion Gap 3 mmol/L (8-16); Aspartate Amino Transferase 24 U/L (15-37); Bilirubin,Total 0.5 mg/dL (0.00-1.00); Blood Urea Nitrogen 21 mg/dL (7-18); Calcium 8.6 mg/dL (8.5-10.1); Carbon Dioxide 31 mmol/L (21-32); Chloride 107 mmol/L (98-108); Cholesterol 174 mg/dL (0-200); Estimated Glomerular Filt Rate > 60; Free T4 Free Thyroxine 1.08 ng/dL (0.76-1.46); Glucose 114 mg/dL (70-99); HDL Direct 42 mg/dL (40-60); LDL Cholesterol Calculated 118 mg/dL (<130); Osmolality Calculated 296 mOsm/kg (285-295); Potassium 4.3 mmol/L (3.5-5.1); Sodium 141 mmol/L (136-145); Thyroid Stimulating Hormone 4.22 uIU/mL (0.36-3.74); Total Protein 6.9 g/dL (6.4-8.2); Triglycerides 71 mg/dL (0-150)
== END 2022-05-02 08:36 | disposition home or self-care (01) ==
PROVIDERS: PCP Internal Medicine; Visit Provider Internal Medicine Endocrinology, Diabetes & Metabolism
DX: E78.2 Mixed hyperlipidemia (principal); E11.9 Type 2 diabetes mellitus without complications
CPT/HCPCS: 36415; 80053; 80061; 82043; 83036; 84439; 84443

== ENCOUNTER 2022-06-12 09:07 | Emergency (ER) | payer MEDICARE, SELFPAY ==
--- NOTE | ~2022-06-12 | CT_ITS ---
EXAMINATION: CT abdomen pelvis wo con DATE: 06/12/2022 11:32 INDICATION: Right flank pain. Kidney stones. TECHNIQUE: Computed tomography (CT) of the abdomen and pelvis was performed without intravenous contr ast. Automated exposure control and iterative reconstruction technique were employed. The dose-length product was 394.74 mGy-cm. COMPARISON: 11/30/2020 FINDINGS: Mild linear discoid atelectasis at the dependent right lower lobe. Calcified left lower lobe nodule a long with a few hepatic and multiple splenic calcific lesions consistent with old granulomatous disea se. Heart size is normal. Postoperative change of prior median sternotomy and coronary artery bypass grafting. Mitral annular calcification. There is additional pericardial calcification extending along the base of the heart. No pericardial effusion. Cholecystectomy clips the gallbladder fossa. Pancrea s is normal. Bilateral macroscopic fat attenuation adrenal myelolipoma see larger on the right measur ing 1.6 cm in maximal diameter. Kidneys and ureters are normal with no urolithiasis, hydroureteroneph rosis or perinephric/ureteral stranding. Bladder is normal. Appendix is not visualized and likely thalia gically absent with suture line at the tip the cecum and a few adjacent surgical clips. No bowel obst ruction. Moderate diverticulosis along the descending and sigmoid colon with inflammatory stranding a long a portion of the mid sigmoid colon suspicious for diverticulitis. No abscess, free intraperitone al gas or fluid. No pathologically enlarged abdominal or pelvic lymphadenopathy. Calcifications along the fascia of the penis consistent with Peyronie's disease. Moderate thoracolumbar spondylosis with chronic appearing mild compression fractures at T12 and L2. IMPRESSION: 1. Screening, acute sigmoid diverticulitis. 2. Pericardial calcification about the base of the heart which could be seen with restrictive pericar ditis. Reviewed, dictated and finalized at location A. IMPRESSION: 1. Screening, acute sigmoid diverticulitis. 2. Pericardial calcification about the base of the heart which could be seen wi th restrictive pericarditis.
[2022-06-12 09:10] VITALS: BP 146/72; PULSE 87; RESP 20; TEMP 36.2; O2SAT 100
[2022-06-12 09:31] LABS: Basophils Absolute Auto 0.1 K/mm3 (0.0-0.1); Basophils Percent Auto 0.6 % (0.2-1.2); Eosinophils Absolute Auto 0.4 K/mm3 (0-0.3); Hematocrit 43.3 % (42.0-52.0); Hemoglobin 13.3 g/dL (14.0-18.0); Immature Granulocyte Absolute 0.02 K/mm3 (0.00-0.031); Immature Granulocyte Percent A 0.2 % (0-0.5); Lymphocytes Absolute Auto 3.02 K/mm3 (0.9-3.2); Lymphocytes Percent Auto 37.2 % (18.3-44.2); Mean Corpuscular HGB Conc 30.7 g/dl (32-36); Mean Corpuscular Hemoglobin 26.3 pg (26-34); Mean Corpuscular Volume 85.6 fl (80-100); Mean Platelet Volume 10.2 fl (7.4-10.4); Monocytes Absolute Auto 0.9 K/mm3 (0.1-0.6); Monocytes Percent Auto 10.5 % (2.6-8.5); Neutrophils Absolute Auto 3.8 K/mm3 (1.3-6.7); Neutrophils Percent Auto 46.5 % (45.5-73.1); Platelet Count Result 238 k/mm3 (150-375); Red Blood Count 5.06 M/mm3 (4.6-6.20); Red Cell Distribution Width 15.6 % (11.5-14.5); White Blood Count 8.1 K/mm3 (4.5-10.0)
[2022-06-12 09:49] LABS: Alanine Aminotransferase 24 U/L (6-50); Albumin Level 4.4 g/dL (3.5-5.1); Alkaline Phosphatase 97 U/L (38-126); Anion Gap 8 mmol/L (8-16); Aspartate Amino Transferase 34 U/L (17-59); Bilirubin,Total 0.6 mg/dL (0.2-1.3); Blood Urea Nitrogen 27 mg/dL (9-20); Carbon Dioxide 31 mmol/L (22-30); Chloride 100 mmol/L (98-107); Estimated CRCL calculation 67 ml/min; Estimated Glomerular Filt Rate > 60; Glucose 86 mg/dL (65-110); Potassium 4.6 mmol/L (3.4-5.0); Sodium 139 mmol/L (137-145)
--- NOTE | 2022-06-12 11:14 | ED.MALEGU ---
HPI - Male Genitourinary General Chief complaint: Urogenital-Male Stated complaint: right flank pain Time Seen by Provider: 06/12/22 11:14 History of Present Illness HPI Narrative: right flank pain with nausea no v/d/urine chagnes but many kidney stones right knee replacement doing fine no other issues no nsaids due to recent surgery. sees dr nugent in past feels like past kidney stones no uri/cp0/sob/f Related Data Home Medications Medication Instructions Recorded Confirmed apixaban 5 mg tablet (Eliquis) 5 mg PO BID 11/24/19 02/17/22 coenzyme Q10 100 mg capsule 100 mg PO DAILY 11/24/19 02/17/22 (Q-Sorb Co Q-10) furosemide 40 mg tablet 20 mg PO QAM 11/24/19 02/17/22 magnesium oxide 400 mg PO HS 11/24/19 02/17/22 omega-3 fatty acids 1,000 mg 1,000 mg PO BID 11/24/19 02/17/22 capsule (Fish Oil Concentrate) pantoprazole 40 mg tablet,delayed 40 mg PO QAM 11/24/19 02/17/22 release pyridoxine (vitamin B6) 50 mg 100 mg PO DAILY 11/24/19 02/17/22 capsule clopidogrel 75 mg tablet (Plavix) 75 mg PO DAILY 10/18/20 02/17/22 multivitamin with minerals-folic 2 tablet PO BID 10/20/20 02/17/22 acid 0.4 mg tablet spironolactone 25 mg tablet 25 mg PO DAILY 11/30/20 02/17/22 tramadol 50 mg tablet 50 mg PO BID PRN Pain 11/30/20 02/17/22 carvedilol 6.25 mg tablet 6.25 mg PO BID 09/21/21 02/17/22 insulin aspart U-100 100 unit/mL See Protocol subcut QID 09/21/21 02/17/22 subcutaneous solution (Novolog U-100 Insulin aspart) ranolazine 500 mg tablet,extended 500 mg PO BID 09/21/21 02/17/22 release,12 hr Allergies Allergy/AdvReac Type Severity Reaction Status Date / Time No Known Allergies Allergy Verified 02/17/22 11:15 Review of Systems Constitutional: Comments: CONSTITUTIONAL: Denies fever, chills, or sweats. EYES: Denies visual changes, redness, or discharge. ENT: Denies rhinorrhea, congestion, sore throat, or otalgia. CARDIOVASCULAR: Denies chest pain, palpitations, or edema. RESPIRATORY: Denies cough or dyspnea. GASTROINTESTINAL: Denies abdominal pain, has nausea, no vomiting, or diarrhea. has right flank pain GENITOURINARY: Denies dysuria or hematuria. SKIN: Denies rash or itching. MUSCULOSKELETAL: Denies back pain, joint pain, or myalgia. NEUROLOGIC: Denies headache, numbness, or weakness. PSYCHIATRIC: Denies anxiety or depression. [facility] Past Medical History Medical History CAD (coronary artery disease), autologous vein bypass graft Carpal tunnel syndrome of left wrist Cervical spine fracture After fall from roof; treated conservatively 2014 COPD (chronic obstructive pulmonary disease) Cubital tunnel syndrome on left Depression Diabetes On insulin pump Dyslipidemia Eczema Essential hypertension GERD (gastroesophageal reflux disease) Kidney stones MANNY on CPAP Paroxysmal atrial fibrillation Peripheral neuropathy Subdural hematoma 2014; conservative management Surgical History Surgical History Cataract extraction status, left eye 2018 History of cardiac catheterization 2003 with 1 stent placed; 2019 with 2 stents History of cardiac radiofrequency ablation 2013 History of carpal tunnel release Left carpal tunnel release June 2020 History of lithotripsy ESWL x9 History of lumbar surgery 1977, 1993 S/P CABG x 4 1993 Family History Family History Mother CHF (congestive heart failure) Diabetes mellitus Father No problems noted. Social History Social History Social History: Mr. Lin lives at home with his in [facility]. He has 3 adult children. 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 He is independent in his ADLs. His PCP is Dr. Rafita Paulson. He designates his , Lenka, as his surrogate decision maker. He would like
[2022-06-12 11:41] LABS: Amorphous Sediment Urine Moderate; Mucus Urine Rare /lpf; RBC Urine 0-2 /hpf (0-2); WBC Urine 0-3 /hpf
[2022-06-12] MEDS: SODIUM CHLORIDE 0.9% IV 1,000 ML 999 ML IV CONT (11:47)
[2022-06-12] MEDS: fentaNYL CITRATE INJ (*CRX) 100 MCG/2 ML VIAL IV PUSH (11:47)
[2022-06-12] MEDS: ONDANSETRON INJ 4 MG/2 ML VIAL IV PUSH (11:48)
[2022-06-12 11:56] LABS: Add Urine Microscopic? YES; Appearance Urine Slightly Cloudy (Clear); Bilirubin Urine Negative (Negative); Blood Urine Negative (Negative); Color Urine Yellow (Yellow); Glucose Urine UA 2+ mg/dL (Negative); Ketones Urine Negative (Negative); Leukocyte Esterase Ur Negative LEU/UL (Negative); Nitrate Urine Negative (Negative); Protein Urine Negative (Negative); Specific Grav Ur 1.015 (1.001-1.035); Urobilinogen Urine 0.2 mg/dL (<2.0)
[2022-06-12] MEDS: TAMSULOSIN HCL 0.4 MG CAPSULE PO (12:07)
[2022-06-12] MEDS: metroNIDAZOLE 250 MG TABLET 500 MG PO (13:19)
[2022-06-12] MEDS: CIPROFLOXACIN 500 MG TAB PO (13:19)
== END 2022-06-12 13:31 | disposition home or self-care (01) ==
PROVIDERS: Emergency Provider Emergency Medicine; PCP Internal Medicine
DX: K57.32 Diverticulitis of large intestine without perforation or abscess without bleeding (principal); I25.10 Atherosclerotic heart disease of native coronary artery without angina pectoris; J44.9 Chronic obstructive pulmonary disease, unspecified; I48.0 Paroxysmal atrial fibrillation; E11.42 Type 2 diabetes mellitus with diabetic polyneuropathy; E78.5 Hyperlipidemia, unspecified; I10 Essential (primary) hypertension; K21.9 Gastro-esophageal reflux disease without esophagitis; Z87.442 Personal history of urinary calculi; Z96.41 Presence of insulin pump (external) (internal); Z79.01 Long term (current) use of anticoagulants; Z79.4 Long term (current) use of insulin; Z98.42 Cataract extraction status, left eye; Z95.1 Presence of aortocoronary bypass graft; Z87.891 Personal history of nicotine dependence; R93.1 Abnormal findings on diagnostic imaging of heart and coronary circulation
CPT/HCPCS: 36415; 74176; 80053; 81001; 85025; 96374; 96375; 99284; A9270; J2405; J3010; J7030

== ENCOUNTER 2022-06-19 08:27 | Outpatient (RCR) | payer MEDICARE, SELFPAY ==
--- NOTE | 2022-06-19 13:05 | PTOPEVAL ---
Thank you for referring Dinesh Lin to [facility] The patient is scheduled to be seen for therapy? 1-2x/week for 10 visits. Please review, sign, date and return this plan of care HAYDER. I agree with and certify that the following plan of care is medically necessary. Referring Physician Date Admitting Provider: Attending Provider: Rafita Paulson MD Referring Provider: *PT Outpatient Evaluation Start: 06/19/22 06:56 Freq: Status: Active Protocol: Document 06/19/22 06:56 [facility] (Rec: 06/19/22 09:10 [facility] [id number]) Therapy Assessment Status Assessment Status Assessment Status Evaluation Outpatient Past Medical History Neurological History Hx Other Neurological Disorders Yes: PERIPHERAL NEUROPATHY Cardiovascular History Hx Angina Yes Hx Chest Pain Yes Hx Congenital Heart Disease Yes Hx Coronary Artery Bypass Graft Yes Hx Coronary Artery Disease Yes Hx Coronary Stent Yes: 2020 Hx Hypertension Yes Respiratory History Hx Chronic Obstructive Pulmonary Disease Yes (COPD) Hx Sleep Apnea Yes: CPAP Gastrointestinal History Hx Cholecystectomy Yes Hx Gastroesophageal Reflux Disease Yes Genitourinary History Hx Kidney Stones Yes: ESWL X9 Hx Urinary Tract Infection Yes Musculoskeletal History Hx Arthritis Yes Hx Back Pain Yes Hematological History Hx Blood Transfusions Yes: with CABG Endocrine History Hx Diabetes Yes Hx Insulin Pump Yes HEENT History Hx Cataracts Yes: LT EYE Hx Sinus Problems Yes Integumentary History Hx Eczema Yes: ARMS/ELBOWS Reproductive History Hx Reproductive Disorders No Significant History Psychosocial History Hx Anxiety Yes Hx Depression Yes Pain History Has Past Pain Affected Your Daily Life Yes Anesthesia History Hx Anesthesia Reactions No Significant History Other History Hx MRSA Yes Evaluation Information Problem Diagnosis Low back pain Onset 06/12/1988 Subjective Information Pt has been dealing with back Query Text:As Reported By Patient/ pain chronically and has had 2 Family back surgeries that were done over about 20 years. Back pain started after pt got rolled over by a tractor. Pt reports that back pain has stayed about the same over the years, but that he has
== END 2022-07-03 16:57 | disposition home or self-care (01) ==
LOC: CHSPT 08:27
PROVIDERS: PCP Internal Medicine; Visit Provider Internal Medicine
DX: M54.9 Dorsalgia, unspecified (principal); Z96.651 Presence of right artificial knee joint
CPT/HCPCS: 97014; 97110; 97140; 97161; G0283

== ENCOUNTER 2022-07-18 07:57 | Outpatient (CLI) | payer MEDICARE, SELFPAY ==
[2022-07-18 08:18] LABS: Creatinine Urine 140.05 mg/dL (40-278); MALB Creatinine Ratio 15.1 mg/g (0-30); Microalbumin Urine Random 21.2 mg/L
[2022-07-18 08:21] LABS: Hemoglobin A1C 6.6 % (<5.7)
[2022-07-18 08:33] LABS: Alanine Aminotransferase 37 U/L (16-63); Albumin Level 3.3 g/dL (3.4-5.0); Alkaline Phosphatase 93 U/L (46-116); Anion Gap 5 mmol/L (8-16); Aspartate Amino Transferase 25 U/L (15-37); Bilirubin,Total 0.4 mg/dL (0.00-1.00); Blood Urea Nitrogen 21 mg/dL (7-18); Calcium 8.9 mg/dL (8.5-10.1); Carbon Dioxide 31 mmol/L (21-32); Chloride 104 mmol/L (98-108); Cholesterol 173 mg/dL (0-200); Estimated Glomerular Filt Rate > 60; Free T4 Free Thyroxine 1.14 ng/dL (0.76-1.46); Glucose 96 mg/dL (70-99); HDL Direct 47 mg/dL (40-60); LDL Cholesterol Calculated 110 mg/dL (<130); Osmolality Calculated 293 mOsm/kg (285-295); Potassium 4.1 mmol/L (3.5-5.1); Sodium 140 mmol/L (136-145); Thyroid Stimulating Hormone 2.24 uIU/mL (0.36-3.74); Total Protein 7.2 g/dL (6.4-8.2); Triglycerides 82 mg/dL (0-150)
== END 2022-07-18 07:58 | disposition home or self-care (01) ==
LOC: CHSLAB 07:59
PROVIDERS: PCP Internal Medicine; Visit Provider Internal Medicine Endocrinology, Diabetes & Metabolism
DX: E78.2 Mixed hyperlipidemia (principal); E11.9 Type 2 diabetes mellitus without complications
CPT/HCPCS: 36415; 80053; 80061; 82043; 83036; 84439; 84443

== ENCOUNTER 2022-08-19 07:00 | Outpatient (CLI) | payer MEDICARE, SELFPAY ==
--- NOTE | ~2022-08-19 | MR_ITS ---
EXAMINATION: MR lumbar spine wo con DATE: 08/19/2022 07:58 INDICATION: BACK PAIN, RADICULOPATHY . TECHNIQUE: Magnetic resonance imaging (MRI) of the lumbar spine was performed without intravenous con trast. Sequences included sagittal T2-weighted FSE, sagittal T2-weighted FS FSE, sagittal T1-weighted FSE, and axial T2-weighted FSE. COMPARISON: 05/18/2021. FINDINGS: The last fully formed and hydrated disc is designated L5-S1. Stable mild retrolisthesis of L2 on L3. Mild chronic height loss at T12. Moderate chronic height loss at L2. Mild Modic type I ospina ges about the posterior aspect of the L3-4 disc space. No suspicious focal or diffuse marrow signal. Posterior laminectomy at L4 and L5. Conus terminates at L1. Multilevel disc dehydration, with severe height loss and interbody fusion at L5-S1. The following disc levels are specifically discussed: T12-L1: Mild diffuse disc bulge. There is no facet joint osteoarthritis. There is no neural foraminal stenosis. There is no central canal stenosis. L1-L2: Mild diffuse disc bulge. There is mild facet joint osteoarthritis. There is no neural foramina l stenosis. There is no central canal stenosis. L2-L3: Moderate diffuse bulge. There is moderate facet joint osteoarthritis. There is moderate bilate ral neural foraminal stenosis. There is mild central canal stenosis. L3-L4: Large diffuse bulge. There is severe facet joint osteoarthritis. There is moderate bilateral n eural foraminal stenosis. There is severe central canal stenosis. L4-L5: Moderate diffuse bulge. There is severe facet joint osteoarthritis. There is severe bilateral neural foraminal stenosis. There is no central canal stenosis. L5-S1: No significant bulge or protrusion. Disc space fusion. There is moderate facet joint osteoarth ritis and ankylosis. There is moderate bilateral neural foraminal stenosis. There is no central canal stenosis. IMPRESSION: 1. Mild Modic type I changes about the L3-4 disc space. 2. Severe central canal stenosis at L3-4. 3. Severe bilateral neural foraminal narrowing L4-5. 4. Severe facet arthropathy at L3-4 and L4-5 Reviewed, dictated and finalized at location K.
== END 2022-08-19 07:01 | disposition home or self-care (01) ==
LOC: CHSIMG 07:02
PROVIDERS: PCP Internal Medicine; Visit Provider Internal Medicine
DX: M54.9 Dorsalgia, unspecified (principal); M54.17 Radiculopathy, lumbosacral region
CPT/HCPCS: 72148

== ENCOUNTER 2022-11-27 08:51 | Outpatient (CLI) | payer MEDICARE, SELFPAY ==
[2022-11-27 09:09] LABS: Basophils Absolute Auto 0.05 K/mm3 (0.00-0.10); Basophils Percent Auto 0.6 % (0.0-1.0); Eosinophils Absolute Auto 0.43 K/mm3 (0.02-0.50); Eosinophils Percent Auto 5.4 % (1.0-6.0); Hematocrit 45.8 % (37.0-46.0); Hemoglobin 14.5 g/dL (12.4-15.3); Immature Granulocyte Absolute 0.04 K/mm3 (0.00-0.00); Immature Granulocyte Percent A 0.5 % (0.0-0.0); Lymphocytes Absolute Auto 2.81 K/mm3 (1.10-4.50); Lymphocytes Percent Auto 35.3 % (18.0-42.0); Mean Corpuscular HGB Conc 31.7 g/dL (32.0-36.0); Mean Corpuscular Hemoglobin 26.9 pg (27.0-31.0); Mean Corpuscular Volume 84.8 fL (78.0-102.0); Mean Platelet Volume 10.7 fl (8.7-11.0); Monocytes Absolute Auto 0.79 K/mm3 (0.10-0.90); Monocytes Percent Auto 9.9 % (2.0-11.0); Neutrophils Absolute Auto 3.8 K/mm3 (1.7-7.2); Neutrophils Percent Auto 48.3 % (50.0-70.0); Platelet Count Result 147 K/mm3 (150-420)
[2022-11-27 09:21] LABS: Add Urine Microscopic? YES; Appearance Urine Clear (Clear); Bilirubin Urine Negative (Negative); Blood Urine Negative (Negative); Color Urine Yellow (Yellow); Glucose Urine UA 3+ (Negative); Ketones Urine Negative (Negative); Leukocyte Esterase Ur Negative (Negative); Nitrate Urine Negative (Negative); Protein Urine Negative (Negative); Specific Grav Ur >= 1.030 (1.010-1.020); Urobilinogen Urine 0.2 mg/dL (0.2-1.0)
[2022-11-27 09:44] LABS: Bacteria Urine Trace /hpf; RBC Urine None seen /hpf (0-2); Squamous Epithelial Cell Urine Occasional /hpf (Few); WBC Urine None seen /hpf (0-3)
[2022-11-27 10:13] LABS: Alanine Aminotransferase 28 U/L (16-63); Albumin Level 3.5 g/dL (3.4-5.0); Alkaline Phosphatase 90 U/L (46-116); Anion Gap 9 mmol/L (8-16); Aspartate Amino Transferase 16 U/L (15-37); Bilirubin,Total 0.4 mg/dL (0.00-1.00); Blood Urea Nitrogen 28 mg/dL (7-18); Calcium 8.6 mg/dL (8.5-10.1); Carbon Dioxide 29 mmol/L (21-32); Chloride 103 mmol/L (98-108); Estimated Glomerular Filt Rate > 60; Ferritin 85 ng/mL (26-388); Glucose 157 mg/dL (70-99); Magnesium 2.2 mg/dL (1.8-2.4); NT Pro B Type Natriuretic Pept 509 pg/mL (0-125); Osmolality Calculated 300 mOsm/kg (285-295); Phosphorus 5.1 mg/dL (2.6-4.7); Potassium 4.3 mmol/L (3.5-5.1); Sodium 141 mmol/L (136-145)
[2022-11-27 10:14] LABS: CRP < 0.5 mg/dL (0.0-0.9)
== END 2022-11-27 08:52 | disposition home or self-care (01) ==
LOC: CHSLAB 08:53
PROVIDERS: PCP Internal Medicine; Visit Provider Internal Medicine
DX: R53.83 Other fatigue (principal); I50.9 Heart failure, unspecified; D50.9 Iron deficiency anemia, unspecified; M25.50 Pain in unspecified joint
CPT/HCPCS: 36415; 80053; 81001; 82728; 83735; 83880; 84100; 85025; 86140

== ENCOUNTER 2022-12-12 11:36 | Outpatient (CLI) | payer MEDICARE, SELFPAY ==
--- NOTE | ~2022-12-12 | XR_ITS ---
EXAM: XR knee LT 3V DATE: 12/12/2022 12:02 HISTORY: left knee pain after twisting wrong 2 days ago medial pain u . COMPARISON: 01/17/2022. FINDINGS: Decreased mineralization. No fracture or dislocation. No lytic or blastic lesion. Mild med ial and lateral joint space narrowing. Mild tricompartmental osteophytosis. Chondrocalcinosis, which can be an age-related finding, but also occurs with CPPD, parathyroid disorders, hemachromatosis, and gout. No erosion or periosteal change. Surgical clips along the medial soft tissues. Vascular calcif ications. Moderate volume joint effusion. Anterior soft tissue swelling/skin thickening. IMPRESSION: Moderate left knee joint effusion. No acute osseous finding. Tricompartmental arthritic c gui. Reviewed, dictated and finalized at location K. ROAD SURVEYOR IMPRESSION: Moderate left knee joint effusion. No acute osseous finding. Tricom partmental arthritic change.
== END 2022-12-12 11:37 | disposition home or self-care (01) ==
LOC: CHSLAB 11:39 → CHSIMG 11:40
PROVIDERS: PCP Internal Medicine; Visit Provider Internal Medicine
DX: M25.562 Pain in left knee (principal); M25.462 Effusion, left knee
CPT/HCPCS: 73562

== ENCOUNTER 2022-12-14 11:34 | Outpatient (CLI) | payer MEDICARE, SELFPAY ==
--- NOTE | ~2022-12-14 | XR_ITS ---
Supine and upright views of the abdomen Clinical history: Constipation Findings: Bowel gas pattern is nonspecific. No evidence for obstruction or free air. No abnormal mass lesion or calcification is seen. Cholecystectomy clips noted. Osseous structures are intact. Impression: No significant abnormality is seen. Reviewed, dictated and finalized at [facility]. M BUNDLER Impression: No significant abnormality is seen.
== END 2022-12-14 11:35 | disposition home or self-care (01) ==
LOC: CHSLAB 11:36 → CHSIMG 11:42
PROVIDERS: PCP Internal Medicine; Visit Provider Internal Medicine
DX: K59.00 Constipation, unspecified (principal); K56.49 Other impaction of intestine; R32 Unspecified urinary incontinence
CPT/HCPCS: 74018

== ENCOUNTER 2022-12-21 09:41 | Outpatient (CLI) | payer MEDICARE, SELFPAY ==
--- NOTE | ~2022-12-21 | MR_ITS ---
MRI of the left knee Clinical history: Pain Technique: Coronal proton density and proton density-weighted images, sagittal proton-density and T2 fat-sat images, and axial proton-density fat-saturated images were acquired. Findings: Anterior and posterior cruciate ligaments are intact. Medial collateral ligament and the la teral collateral ligament complex are intact. Popliteus tendon is intact. There is complex tearing extensively involving nearly the entire medial meniscus. Portions of the pos terior horn and body in particular has a macerated appearance. No definite lateral meniscal tear iden tified. There is extensive moderate to high-grade chondromalacia over the central posterior aspect of the med ial femoral condyle. There is extensive high-grade chondromalacia of the medial tibial plateau. Artic ular cartilage in the lateral compartment is well preserved. Femoral trochlear cartilage and patellar cartilage are also relatively well-preserved. There is mild chondromalacia patella. Extensor mechanism is intact. Small joint effusion is present. Minimal Garcia's cyst present. Impression: Extensive complex tearing involving essentially the entire medial meniscus, as detailed above. Mild to moderate degenerative change of the medial compartment, as detailed above. Minimal degenerati ve change of the patellofemoral compartment. Small joint effusion with minimal Garcia's cyst. Reviewed, dictated and finalized at location . HI DEVELOPER Impression: Extensive complex tearing involving essentially the entire medial meniscus, as detailed above. Mild to moderate degenerative change of the medial compartment, as detailed abo ve. Minimal degenerative change of the patellofemoral compartment. Small joint effusion with minimal Garcia's cyst.
== END 2022-12-21 09:42 | disposition home or self-care (01) ==
LOC: CHSIMG 09:43
PROVIDERS: PCP Internal Medicine; Visit Provider Internal Medicine
DX: M25.562 Pain in left knee (principal); S83.232A Complex tear of medial meniscus, current injury, left knee, initial encounter; M25.462 Effusion, left knee; M71.22 Synovial cyst of popliteal space [Baker], left knee
CPT/HCPCS: 73721

== ENCOUNTER 2022-12-25 17:51 | Emergency (ER) | payer MEDICARE, SELFPAY ==
[2022-12-25 18:08] VITALS: BP 149/72; PULSE 78; RESP 16; TEMP 36.6; O2SAT 98
[2022-12-25 18:27] LABS: Basophils Absolute Auto 0.1 K/mm3 (0.0-0.1); Basophils Percent Auto 0.5 % (0.2-1.2); Eosinophils Absolute Auto 0.3 K/mm3 (0-0.3); Eosinophils Percent Auto 2.4 % (0-4.4); Hematocrit 44.9 % (42.0-52.0); Hemoglobin 14.4 g/dL (14.0-18.0); Immature Granulocyte Absolute 0.05 K/mm3 (0.00-0.031); Immature Granulocyte Percent A 0.4 % (0-0.5); Lymphocytes Absolute Auto 3.64 K/mm3 (0.9-3.2); Lymphocytes Percent Auto 32.4 % (18.3-44.2); Mean Corpuscular HGB Conc 32.1 g/dl (32-36); Mean Corpuscular Hemoglobin 26.5 pg (26-34); Mean Corpuscular Volume 82.7 fl (80-100); Mean Platelet Volume 10.9 fl (7.4-10.4); Monocytes Percent Auto 8.9 % (2.6-8.5); Neutrophils Absolute Auto 6.2 K/mm3 (1.3-6.7); Neutrophils Percent Auto 55.4 % (45.5-73.1); Platelet Count Result 170 k/mm3 (150-375); Red Blood Count 5.43 M/mm3 (4.6-6.20); Red Cell Distribution Width 15.8 % (11.5-14.5); White Blood Count 11.2 K/mm3 (4.5-10.0)
[2022-12-25 18:36] LABS: Alanine Aminotransferase 32 U/L (6-50); Albumin Level 4.5 g/dL (3.5-5.1); Alkaline Phosphatase 80 U/L (38-126); Anion Gap 4 mmol/L (8-16); Aspartate Amino Transferase 41 U/L (17-59); Bilirubin,Total 0.5 mg/dL (0.2-1.3); Blood Urea Nitrogen 37 mg/dL (9-20); Calcium 8.9 mg/dL (8.4-10.2); Carbon Dioxide 28 mmol/L (22-30); Chloride 102 mmol/L (98-107); Estimated CRCL calculation 66 ml/min; Estimated Glomerular Filt Rate > 60; Glucose 124 mg/dL (65-110); Potassium 4.1 mmol/L (3.4-5.0); Sodium 134 mmol/L (137-145)
[2022-12-25 18:47] LABS: Appearance Urine Clear (Clear); Bilirubin Urine Negative (Negative); Blood Urine Negative (Negative); Color Urine Yellow (Yellow); Glucose Urine UA 3+ mg/dL (Negative); Ketones Urine Negative (Negative); Leukocyte Esterase Ur Negative LEU/UL (Negative); Nitrate Urine Negative (Negative); Protein Urine Negative (Negative); Urobilinogen Urine 0.2 mg/dL (<2.0); pH Urine 5.5 (5.0-9.0)
[2022-12-25 18:54] LABS: RBC Urine 0-2 /hpf (0-2); WBC Urine 0-3 /hpf
[2022-12-25 19:05] LABS: Add Urine Microscopic? YES
--- NOTE | 2022-12-25 21:59 | PC.NURSE ---
Pt called for room, no answer
== END 2022-12-25 21:59 | disposition left against medical advice (07) ==
PROVIDERS: Emergency Provider Emergency Medicine; PCP Internal Medicine
DX: R10.9 Unspecified abdominal pain (principal)
CPT/HCPCS: 36415; 80053; 81001; 85025; 99199

== ENCOUNTER 2022-12-29 14:52 | Outpatient (RCR) | payer MEDICARE, SELFPAY ==
--- NOTE | 2022-12-29 17:26 | PTOPEVAL1 ---
Assessment and note entered by Margarita Frost DPT Evaluation Information Assessment Status Evaluation Diagnosis L knee pain Onset 12/25/22 Subjective Information Patient reports L knee pain. He had an MRI done and showed a complex tear of the L medial meniscus . He does not remember when pain started as he was taking pain medications for prior surgeries. He reports difficulty with walking and standing prolonged times. 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 In the last 12 months he has had a R TKA and back surgery. He had a cortisone injection 1.5 weeks ago and has noticed a decrease in pain. Reported Pain Level Pain Score 3: Self Report Assessment PT Clinical Summary Patient is 72 year old male who presents to PT with L knee pain and imagining showing L medial meniscus tear. 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 He would benefit from skilled PT to address impairments and return to [place]. Plan of Care Interventions Electrical Stimulation,Gait Training,Hot Pack/Cold Pack,Manual Therapy,Mechanical Traction,Neuro Re- education,Patient/Caregiver Educati,Therapeutic Activities,Therapeutic Exercise PT Services Indicated Yes Treatment Frequency and 2x weekly for 12 visits Duration These treatments will address the objective and functional deficits as defined above. The patient will be advanced safely and appropriately in order for the patient to progress towards his/her prior level of function. Additional exercises will be introduced and as well as a comprehensive home exercise program upon discharge, if needed, ?to ensure carryover of functional gains achieved in the clinic. This treatment plan has been reviewed and agreement upon by the patient.
--- NOTE | 2023-01-04 13:10 | PTOPREEVAL ---
Assessment and note entered by Maragrita Frost DPT Evaluation Information Assessment Status Re-evaluation Diagnosis R flank pain Onset 1 month ago Subjective Information Juan Alberto reports R flank pain that started about 1 month ago. He reports a few days before onset of pain he fell on the treadmill and fell on his R side. He reports it felt like he had kidney stones but he had a abdomen x-ray done that was negative . He report pain with any change in position. Reported Pain Level Pain Score 9: Self Report Assessment PT Clinical Summary Patient is a 72 year old male who presents to PT with R flank pain. Patient demonstrates tenderness to R 12th rib, decreased L lumbar side bend and decreased B LE strength. He has difficulty with rolling and positional changes. He would benefit from skilled PT to address impairments and return to PLOF. Patient is also being seen for L knee pain due to meniscus tear and that inital evaluation is also attached. Plan of Care Interventions Electrical Stimulation,Gait Training,Hot Pack/Cold Pack,Manual Therapy,Mechanical Traction,Neuro Re- education,Patient/Caregiver Educati,Therapeutic Activities,Therapeutic Exercise PT Services Indicated Yes Treatment Frequency and 2x weekly for 10 visits Duration These treatments will address the objective and functional deficits as defined above. The patient will be advanced safely and appropriately in order for the patient to progress towards his/her prior level of function. Additional exercises will be introduced and as well as a comprehensive home exercise program upon discharge, if needed, ?to ensure carryover of functional gains achieved in the clinic. This treatment plan has been reviewed and agreement upon by the patient.
== END 2023-01-16 14:37 | disposition home or self-care (01) ==
LOC: CHSPT 14:52
DX: M25.562 Pain in left knee (principal)
CPT/HCPCS: 97014; 97110; 97140; 97161; G0283

== ENCOUNTER 2023-01-23 09:18 | Outpatient (CLI) | payer MEDICARE, SELFPAY ==
[2023-01-23 10:06] LABS: Hemoglobin A1C 6.8 % (<5.7)
[2023-01-23 10:25] LABS: Alanine Aminotransferase 38 U/L (16-63); Albumin Level 3.5 g/dL (3.4-5.0); Alkaline Phosphatase 73 U/L (46-116); Anion Gap 7 mmol/L (8-16); Aspartate Amino Transferase 24 U/L (15-37); Bilirubin,Total 0.5 mg/dL (0.00-1.00); Blood Urea Nitrogen 30 mg/dL (7-18); Carbon Dioxide 31 mmol/L (21-32); Chloride 106 mmol/L (98-108); Cholesterol 175 mg/dL (0-200); Estimated Glomerular Filt Rate > 60; Free T4 Free Thyroxine 1.08 ng/dL (0.76-1.46); Glucose 72 mg/dL (70-99); HDL Direct 49 mg/dL (40-60); LDL Cholesterol Calculated 113 mg/dL (<130); Osmolality Calculated 303 mOsm/kg (285-295); Potassium 4.4 mmol/L (3.5-5.1); Sodium 144 mmol/L (136-145); Thyroid Stimulating Hormone 4.45 uIU/mL (0.36-3.74); Total Protein 7.1 g/dL (6.4-8.2); Triglycerides 65 mg/dL (0-150)
[2023-01-23 10:30] LABS: Calcium 8.7 mg/dL (8.5-10.1)
[2023-01-23 10:31] LABS: Creatinine Urine 105.18 mg/dL (40-278); MALB Creatinine Ratio 55.3 mg/g (0-30); Microalbumin Urine Random 58.2 mg/L
== END 2023-01-23 09:19 | disposition home or self-care (01) ==
LOC: CHSLAB 09:20
PROVIDERS: PCP Internal Medicine; Visit Provider Internal Medicine Endocrinology, Diabetes & Metabolism
DX: E11.9 Type 2 diabetes mellitus without complications (principal); E78.5 Hyperlipidemia, unspecified
CPT/HCPCS: 36415; 80053; 80061; 82043; 83036; 84439; 84443

== ENCOUNTER → 2023-01-24 07:58 | Outpatient (CLI) | payer MEDICARE, SELFPAY ==
--- NOTE | ~2023-01-24 | XR_ITS ---
EXAMINATION: XR lumbar spine 6V w bending DATE: 01/24/2023 08:29 INDICATION: Lumbar radiculopathy. TECHNIQUE: 7 views of lumbar spine standing including flexion and extension views were obtained. COMPARISON: Lumbar spine radiographs 10/06/2020, lumbar spine MRI 08/19/2022. FINDINGS: There is 4 mm retrolisthesis of L2 on L3. There is a chronic compression fracture of L2 wit h 3/5 loss of height centrally. There is mild chronic anterior wedging of T12 and L1 vertebral bodies . There is no abnormal motion with flexion or extension. There is mildly decreased disc height at T12 -L1 and L1 and L2, moderately decreased disc height at L2-L3, mildly decreased disc height at L3-L4, and severely decreased disc height at L5-S1. There is multilevel facet joint osteoarthritis, severe b ilaterally at L3-L4 and L4-L5. There are laminectomies in lower lumbar spine. Surgical clips in the r ight upper quadrant are likely from cholecystectomy. IMPRESSION: 1. Stable severe lumbar spondylosis. Reviewed, dictated and finalized at location A.
== END ==
PROVIDERS: PCP Internal Medicine; Visit Provider Nurse Practitioner Family
DX: M47.26 Other spondylosis with radiculopathy, lumbar region (principal)
CPT/HCPCS: 72114